=== PATIENT | female | born 1960 | race Caucasian/White ===

== ENCOUNTER 2020-08-04 11:46 | Outpatient (REF) | payer MEDICAID, SELFPAY ==
[2020-08-04 12:44] LABS: MANUAL DIFF FLAG NO
[2020-08-04 12:46] LABS: Basophils Percent Auto 0.4 % (0-2); Eosinophils Absolute Auto 0.1 X10*3/uL (0.0-0.4); Eosinophils Percent Auto 1.4 % (0-4); Hematocrit 40.8 % (37-47); Hemoglobin 13.3 g/dl (12.0-16.0); Imm Gran Abs Auto 0.02 X10*3/uL (0.00-0.03); Imm Gran Pct Auto 0.3 % (0.0-0.4); Lymphocytes Absolute Auto 1.9 X10*3/uL (1.2-4.9); Lymphocytes Percent Auto 25.9 % (20-40); Mean Corpuscular HGB Conc 32.6 g/dl (31.0-35.0); Mean Corpuscular Hemoglobin 30.4 pg (27.0-33.0); Mean Corpuscular Volume 93.4 fL (80-98); Mean Platelet Volume 10.6 fL (9.4-12.3); Monocytes Absolute Auto 0.6 X10*3/uL (0.1-1.2); Monocytes Percent Auto 8.8 % (2-11); Neutrophils Absolute Auto 4.6 X10*3/uL (2.0-8.3); Neutrophils Percent Auto 63.2 % (45-73); Platelet Count 238 X10*3/uL (160-400); Red Blood Count 4.37 X10*6/uL (4.20-5.50); Red Cell Distribution Width 12.5 % (11.0-16.0); White Blood Count 7.3 X10*3/uL (4.8-10.8)
[2020-08-04 13:45] LABS: Alanine Aminotransferase 20 U/L (0-31); Albumin Level 4.5 g/dL (3.5-5.0); Alkaline Phosphatase 99 U/L (39-117); Anion Gap 13 (12-20); Aspartate Amino Transferase 15 U/L (5-31); Bilirubin Total 0.2 mg/dL (0.0-1.0); Blood Urea Nitrogen 31 mg/dL (9-16); Calcium 9.4 mg/dL (8.4-10.2); Carbon Dioxide 29 mmol/L (22-29); Chloride 102 mmol/L (96-108); Estimated Glomerular Filt Rate 58; Glucose Random 102 mg/dL (60-115); Potassium 4.6 mmol/l (3.3-5.1); Sodium 139 mmol/L (135-145); Total Protein 6.7 g/dL (6.5-8.0)
[2020-08-04 14:22] LABS: Folate 3.3 ng/mL (> or = 4.0); Vitamin B12 213 pg/mL (200-900)
[2020-08-05 14:11] LABS: SARS COV2 IgG Negative (Negative)
== END 2020-08-04 11:47 | disposition home or self-care (01) ==
LOC: HO.MANLDS 11:46
PROVIDERS: PCP Internal Medicine; Visit Provider Internal Medicine
DX: G35 Multiple sclerosis (principal); Z20.828 Contact with and (suspected) exposure to other viral communicable diseases
CPT/HCPCS: 36415; 80053; 82306; 82607; 82746; 85025; 86769

== ENCOUNTER 2020-11-06 10:35 | Outpatient (REF) | payer MEDICAID, SELFPAY | END 2020-11-06 10:36 | disposition home or self-care (01) | LOC: HO.MANLNP 10:35 | PROVIDERS: PCP Internal Medicine; Visit Provider Physician Assistant | DX: R30.9 Painful micturition, unspecified (principal) | CPT/HCPCS: 87086 ==

== ENCOUNTER 2022-04-29 14:27 | Outpatient (REF) | payer MEDICARE, MEDICAID, SELFPAY ==
[2022-04-29 17:15] LABS: MANUAL DIFF FLAG NO
[2022-04-29 17:19] LABS: Basophils Percent Auto 0.5 % (0-2); Eosinophils Percent Auto 0.7 % (0-4); Hematocrit 41.9 % (37.0-47.0); Hemoglobin 13.7 g/dl (12.0-16.0); Imm Gran Abs Auto 0.01 X10*3/uL (0.00-0.03); Imm Gran Pct Auto 0.2 % (0.0-0.4); Lymphocytes Percent Auto 34.9 % (20-40); Mean Corpuscular HGB Conc 32.7 g/dl (31.0-35.0); Mean Corpuscular Hemoglobin 29.5 pg (27.0-33.0); Mean Corpuscular Volume 90.1 fL (80.0-98.0); Mean Platelet Volume 10.5 fL (9.4-12.3); Monocytes Absolute Auto 0.7 X10*3/uL (0.1-1.2); Monocytes Percent Auto 11.6 % (2-11); Neutrophils Percent Auto 52.1 % (45-73); Platelet Count 242 X10*3/uL (160-400); Red Blood Count 4.65 X10*6/uL (4.20-5.50); Red Cell Distribution Width 12.2 % (11.0-16.0); White Blood Count 5.7 X10*3/uL (4.8-10.8)
[2022-04-29 17:47] LABS: Alanine Aminotransferase 13 U/L (0-31); Albumin Level 4.7 g/dL (3.5-5.0); Alkaline Phosphatase 104 U/L (39-117); Anion Gap 13 (12-20); Aspartate Amino Transferase 13 U/L (5-31); Bilirubin Total 0.5 mg/dL (0.0-1.0); Blood Urea Nitrogen 15 mg/dL (9-16); Carbon Dioxide 30 mmol/L (22-29); Chloride 100 mmol/L (96-108); Estimated Glomerular Filt Rate > 60; Glucose Random 98 mg/dL (60-115); Sodium 139 mmol/L (135-145); Total Protein 7.1 g/dL (6.5-8.0)
== END 2022-04-29 14:28 | disposition home or self-care (01) ==
LOC: HO.MANLDS 14:27
PROVIDERS: Visit Provider Physician Assistant
DX: I95.2 Hypotension due to drugs (principal)
CPT/HCPCS: 36415; 80053; 85025

== ENCOUNTER 2022-05-13 18:22 | Outpatient (REF) | payer MEDICARE, SELFPAY ==
[2022-05-13 19:03] LABS: Appearance Urine Clear; Color Urine Yellow; Glucose Urine UA Negative (Negative); Leukocyte Esterase Urine Trace (Negative); Nitrite Urine Negative (Negative); PH 6.5 (5.0-8.0); Specific Gravity - Urine <= 1.005 (1.005-1.025); Urine Blood Negative (Negative); Urine Ketones Negative (Negative); Urine Protein Negative (Neg-Trace)
[2022-05-13 19:08] LABS: Bacteria Urine None Seen (None Seen); Hyaline Casts Urine 0-2 /LPF (0-2); RBC Urine 0-2 /HPF (0-2); Squamous Epithelial Cell Urine 0-2 /HPF (0-2); WBC Urine 0-5 /HPF (0-5)
== END 2022-05-13 18:23 | disposition home or self-care (01) ==
LOC: HO.LNP 18:22
PROVIDERS: Visit Provider Physician Assistant
DX: R30.9 Painful micturition, unspecified (principal)
CPT/HCPCS: 81001; 81003

== ENCOUNTER → 2022-06-10 12:53 | Outpatient (REF) | payer MEDICARE, MEDICAID, SELFPAY ==
--- NOTE | 2022-06-10 13:00 | CA_ITS ---
Transthoracic Echocardiogram Amended Patient (Last, First, Middle): Betty Phillips B Gender: Female Date of : 1960 Age: 61 Procedure Date: 06/10/2022 Procedure Type: Transthoracic Echocardiogram Location: OP Height: 157.48 cm Weight: 57.15 kg BSA: 1.57 m2 Heart Rate: 62 bpm BP: 132 / 68 mmHg Program Eligibility Specialist: ISA Referring MD: Brook JUAREZ Selector Packer: César Colunga MD Symptoms: PALPITATIONS Study Quality: Adequate ECG Rhythm: Sinus Conclusions: - 1. Normal LV systolic function with impaired relaxation abnormality 2. Normal cardiac valvular dopplers 3. No pericardial effusion Findings Left Ventricle Normal left ventricular size, thickness, and systolic function. The visually estimated ejection fraction is between 55-60%. Spectral Doppler is indicative of an impaired relaxation filling pattern. E/E prime ratio is between 8 and 15 consistent with indeterminate filling pressures. Right Ventricle Normal right ventricular cavity size and systolic function. Atria The left atrium is normal in size. Interatrial shunt cannot be excluded. The right atrium is normal in size. Aortic Valve Normal aortic valve structure and function. There is no aortic valve stenosis. There is no aortic valve regurgitation. Mitral Valve Normal mitral valve structure and function. There is no mitral valve regurgitation. There is no mitral valve stenosis. Pulmonic Valve The pulmonic valve was not well visualized. Tricuspid Valve Normal right atrial pressure. Great Vessels All visible segments of the aorta are normal in size. The pulmonary artery was not well visualized. Venous The inferior vena cava is normal in size and collapses greater than 50% with inspiration. Pericardium/Pleural There is no evidence of pericardial effusion. Prior Study Comparison No prior study available for comparison. Measurements 2D Linear Measurements IVSd: 0.62 0.6-0.9/0.6-1.0 cm LVIDd: 4.51 3.9-5.3/4.2-5.9 cm LVIDd Index: 2.87 2.4-3.2/2.2-3.1 cm/m2 LVIDs: 4.32 2.0-3.6 cm LVPWd: 0.54 0.7-1.1 cm LA Diam: 3.10 2.7-3.8/3.0-4.0 cm LAIDs Index: 1.97 1.5-2.3 cm/m2 LV Mass: 94.17 67-162/88-224 g LV Mass Index: 59.98 43-95/49-115 g/m2 LVOT Diam: 1.70 3.0+(-)1.3 cm 2D Volumes LA Vol: 10.70 2D Systolic Function EF 4C: 59.20 >55% EF 2C: 58.20 >55% EF BiP: 59.00 >55% Mitral Valve MV Pk E: 0.68 MV PK A: 0.66 MV Decel Time: 162.00 E/A: 1.00 E'Lateral: 5.98 E'Medial: 5.44 E/E' Med: 12.40 E/E' Lat: 11.30 PHT: 47.00 MVA PHT: 4.68 Decel [place]: 4.19 Aortic Valve AoV Pk Mars: 1.16 AoV Mn Mars: 0.80 AoV VTI: 0.25 AoV Pk Grad: 5.00 Aov Mn Grad: 3.00 MARYANN Cont.VTI: 1.63 LVOT LVOT Pk Mars: 0.84 LVOT Mn Mars: 0.56 LVOT VTI: 0.18 LVOT Pk Grad: 3.00 LVOT Mn Grad: 1.00 LVOT Diam: 1.70 LVOT Area: 2.27 Diastolic Function MV Pk E: 0.68 MV Pk A: 0.66 E/A: 1.00 E'Medial: 5.44 E/E' Med: 12.40 E' Laterial: 5.98 E/E' Lat: 11.30 Right Ventricle TAPSE (mm): 18.30 TVS' Mars: 9.46 Tricuspid Valve RA Press: 3.00 Great Vessels Aorta Sinus of Valsalva: 2.60 2.0-3.5 cm Ao Asc: 2.80 2.1-3.4 cm Pulmonary Veins Pulm Vein S/D 1.40 Pulmonary Valve PV Pk Mars: 0.60 Peak PV Grad: 1.00 Updated in Other Vendor System with Status of Final César Colunga MD electronically signed on 06/12/2022 1:55:27 PM with status of Final
== END ==
LOC: HO.CARD 12:53
PROVIDERS: PCP Internal Medicine; Visit Provider Physician Assistant
DX: R00.2 Palpitations (principal)
CPT/HCPCS: 93306

== ENCOUNTER 2022-08-09 12:18 | Outpatient (REF) | payer MEDICARE, MEDICAID, SELFPAY ==
[2022-08-09 14:30] LABS: Calcium 9.8 mg/dL (8.4-10.2)
[2022-08-09 14:56] LABS: Free T4 (Free Thyroxine) 0.91 ng/dL (0.71-1.85); Thyroid Stimulating Hormone 1.24 uIU/mL (0.32-4.0)
[2022-08-10 12:51] LABS: Calcium (PTHI) 9.8 mg/dL (8.6-10.4); PTHI 97 pg/mL (16-77)
== END 2022-08-09 12:19 | disposition home or self-care (01) ==
LOC: HO.MANLDS 12:18
PROVIDERS: Visit Provider Physician Assistant
DX: M81.0 Age-related osteoporosis without current pathological fracture (principal); G35 Multiple sclerosis
CPT/HCPCS: 36415; 82310; 83970; 84439; 84443

== ENCOUNTER 2025-08-15 14:47 | Outpatient (REF) | payer MEDICARE, MEDICAID, SELFPAY ==
--- OUTSIDE RECORDS SUMMARY | 2025-08-15 15:00 | XMS_ITS | Encounter Summary ---
Author Organization [facility] Address [address] [place] [address] Phone Care Team Providers Care Livestock Inspector Name Role Phone Stephan Day DO Unavailable Stephan Day DO Primary Care Provider [phone] Encounter Details Date Type Department Care Team ([facility] st Contact Info) Description 02/11/2022 Transcribe Orders [facility] [place] [address] [place] [address] Stephan Day DO [address] [facility] [place], [place] [id number] [email or web address] Encounter for general adult medical examination with abnormal findings (Primary Dx) Social History Tobacco Use Types Packs/Day Years Used Date Smoking Tobacco: Former Cigarettes 0.5 25 1 984 - 2009 Smokeless Tobacco: Never Comments:relapsed for 2 week s in 2018 Alcohol Use Standard Drinks/Week Comments No 0 (1 standard drink = 0.6 oz pur e alcohol) Comments No Sex and Gender Information Value Date Recorded Sex Assigned at Female 11/01/2019 7:04 PM EST Legal Sex Female 5:58 PM EST Gender Identity Female 11/01/2019 7:04 PM EST Sexual Orientation Choose not to disclose 2019 7:04 PM EST documented as of this encounter Plan of Treatment Not on file documented as of this encounter Results * TSH (02/11/2022 12:08 PM EDT) TSH 1.05 0.27 - 4.20 uIU/mL [facility] Blood 02/11/2022 12:0 8 PM EDT 02/11/2022 12:11 PM EDT us Stephan A Bigda DO LAB BLOOD BKR ORDERABLES Final R esult Performing Organization Address City/[facility]/ZIP Co de Phone Number [address] [address] * 25-OH vitamin D (02/11/2022 12:08 PM EDT) Pathologist [facility] 25 [place] VIT D (TOTAL) 41 30 - 60 ng/mL [facility] Blood 02/11/2022 12:0 8 PM EDT 02/11/2022 12:11 PM EDT us Stephan A [facility] LAB BLOOD BKR ORDERABLES Final R esult Performing Organization Address City/[facility]/ZIP Co de Phone Number [address] [address] * CBC and differential (02/11/2022 12:08 PM EDT) Pathologist [facility] WBC 5.14 4.00 - 11.00 K/uL [facility] RBC 4.67 3.72 - 5.30 M/uL [facility] HGB 14.0 11.4 - 15.9 g/dL [facility] HCT 43.0 34.2 - 46.8 % [facility] PLT 258 140 - 430 K/uL [facility] MCV 92.1 78.0 - 97.0 fL [facility] MCH 30.0 25.0 - 33.0 pg [facility] MCHC 32.6 32.0 - 36.0 g/dL [facility] RDW 12.3 11.0 - 16.0 % [facility] MPV 10.5 8.4 - 12.8 fl [facility] NRBC 0.00 0 /100 WBCs [facility] ABSOLUTE NRBC 0.00 0 K/uL [facility] DIFF METHOD Auto [facility] NEUTS 48.0 43.0 - 75.0 % [facility] LYMPHS 40.3 18.2 - 47.4 % [facility] MONOS 9.1 4.00 - 11.00 % [facility] EOS 1.6 0.0 - 8.0 % [facility] BASOS 0.6 0.0 - 2.0 % [facility] Granulocytes, immature (%) 0.4 0.0 - 0.9 % [facility] ABSOLUTE NEUTS 2.47 1.80 - 7.70 K/uL [facility] ABSOLUTE LYMPHS 2.07 1.00 - 3.10 K/uL [facility] ABSOLUTE MONOS 0.47 0.20 - 0.80 K/uL [facility] ABSOLUTE EOS 0.08 0.00 - 0.80 K/uL [facility] ABSOLUTE BASOS 0.03 0.00 - 0.09 K/uL [facility] Granulocytes, immature 0.02 0.00 - 0.05 K/uL [facility] Blood 02/11/2022 12:0 8 PM EDT 02/11/2022 12:11 PM EDT us Stephan A Bigda DO LAB BLOOD BKR ORDERABLES Final R esult [address] [address] * (ABNORMAL) Comprehensive metabolic panel (02/11/2022 12:08 PM EDT) SODIUM 140 133 - 146 mmol/L [facility] POTASSIUM 4.1 3.3 - 5.1 mmol/L [facility] CHLORIDE 102 96 - 108 mmol/L [facility] CO2 27 21 - 35 mmol/L [facility] BUN 12 6 - 19 mg/dL [facility] CREATININE 0.50 0.5 - 1.5 mg/dL [facility] GLUCOSE 94 70 - 99 mg/dL [facility] ALBUMIN 4.7 3.9 - 4.8 g/dL [facility] TOTAL PROTEIN 7.1 6.5 - 8.0 g/dL [facility] CALCIUM 9.8 8.4 - 10.3 mg/dL [facility] ALKALINE PHOSPHATASE 127(H) 39 - 117 U/L [facility] TOTAL BILIRUBIN 0.3 0.0 - 1.2 mg/dL [facility] AST 28 0 - 37 U/L [facility] ALT 18 0 - 40 U/L [facility] GLOBULIN 2.4 1 - 4.8 g/dL [facility] EGFR 105 >59 mL/min/1.7 3m2 [facility] Comment:Estimated glomerular filtration rate calculated using the CKD-EPI refit equation. ANION GAP 15 10 - 20 mmol/L [facility] Blood 02/11/2022 12:0 8 PM EDT 02/11/2022 12:11 PM EDT us Stephan Day DO LAB BLOOD BKR ORDERABLES Final R esult Performing Organization Address City/State/[facility] Co de Phone Number [address] [address] documented in this encounter Visit Diagnoses Diagnosis Encounter for general adult medical examination with abnormal findings- Primary documented in this encounter Care Teams Livestock Inspector Relationship Specialty Start Date End Date Stephan Day DO [address] [place] [address] [email or web address] PCP - General Internal Medicine 03/22/21 Stephan Day DO [address] [place] [address] [email or web address] Insurance Assigned Provider 01/01/20 03/05/22 documented as of this encounter Additional Source Comments The information contained in this document represents components of the legal health record. It is not the complete legal health record.[facility]
--- OUTSIDE RECORDS SUMMARY | 2025-08-15 15:00 | XMS_ITS | Encounter Summary ---
Author Organization [facility] Address [address] [place] [address] Phone Care Team Providers Care Main Line Station Engineer Name Role Phone Stephan Day DO Unavailable Stephan Day DO Primary Care Provider [phone] Encounter Details Date Type Department Care Team (Late st Contact Info) Description 06/25/2021 Procedure Pass [facility], [address] [address] Social History Tobacco Use Types Packs/Day Years [...] on file documented as of this encounter Visit Diagnoses Not on filedocumented in this encounter Care Teams Main Line Station Engineer Relationship Specialty Start Date End Date Stephan Day DO [address] [facility] [place] [address] PCP - General Internal Medicine 03/22/21 Stephan Day DO [address] [place] [address] [email or web address] Insurance Assigned Provider 01/01/20 03/05/22 documented as of this encounter Additional Source Comments The information contained in this document represents components of the legal health record. It is not the complete legal health record.[facility]
--- OUTSIDE RECORDS SUMMARY | 2025-08-15 15:00 | XMS_ITS | Encounter Summary ---
Author Organization [facility] Address [address] [place] [address] Phone Care Team Providers Care Tie Up Worker Name Role Phone Stephan Day DO Primary Care Provider [phone] Encounter Details Date Type Department Care Team (Late st Contact Info) Description 04/29/2022 Procedure Pass [facility], [facility] [address] [place] [address] Social History Tobacco Use Types Packs/Day Years Used Date Smoking Tobacco: Former Cigarettes 0.5 25 1 984 - 2008 Smokeless Tobacco: Never Comments:relapsed for 2 week [...] on filedocumented in this encounter Care Teams Tie Up Worker Relationship Specialty Start Date End Date Stephan Day DO PCP - General Internal Medicine 03/22/21 documented as of this encounter Additional Source Comments The information contained in this document represents components of the legal health record. It is not the complete legal health record.[facility]
--- OUTSIDE RECORDS SUMMARY | 2025-08-15 15:00 | XMS_ITS | Encounter Summary ---
Author Organization [facility] Address [address] [place] [address] Phone Care Team Providers Care Plaster Maker Name Role Phone Stephan Day DO Unavailable Stephan Day DO Primary Care Provider [phone] Encounter Details Date Type Department Care Team (Late st Contact Info) Description 04/15/2021 Procedure Pass [facility], [address] [address] Social History Tobacco Use Types Packs/Day Years [...] on filedocumented in this encounter Care Teams Plaster Maker Relationship Specialty Start Date End Date Stephan Day DO [address] [facility] [place] [address] PCP - General Internal Medicine 03/22/21 Stephan Day DO [address] [place] [address] [email or web address] Insurance Assigned Provider 01/01/20 03/05/22 documented as of this encounter Additional Source Comments The information contained in this document represents components of the legal health record. It is not the complete legal health record.[facility]
--- OUTSIDE RECORDS SUMMARY | 2025-08-15 15:00 | XMS_ITS | Encounter Summary ---
Author Organization [facility] Address [address] [place] [address] Phone Care Team Providers Care Stave Block Roller Name Role Phone Stephan Day DO Unavailable Stephan Day DO Primary Care Provider Encounter Details Date Type Department Care Team (Late st Contact Info) Description 06/25/2021 Procedure Pass [facility], [address] [address] Social History Tobacco Use Types Packs/Day Years [...] on filedocumented in this encounter Care Teams Stave Block Roller Relationship Specialty Start Date End Date Stephan Day DO [address] [facility] [place] [address] PCP - General Internal Medicine 03/22/21 Stephan Day DO [address] [place] [address] [email or web address] Insurance Assigned Provider 01/01/20 03/05/22 documented as of this encounter Additional Source Comments The information contained in this document represents components of the legal health record. It is not the complete legal health record.[facility]
--- OUTSIDE RECORDS SUMMARY | 2025-08-15 15:00 | XMS_ITS | Encounter Summary ---
Author Organization [facility] Address [address] [place] [address] [address] [place] [address] Phone Care Team Providers Care Industrial Servicer Name Role Phone Stephan Day DO Primary Care Provider [phone] Encounter Details Date Type Department Care Team (Latest Contact Info) Description 04/29/2022 Transcribe Orders Virtual Department [address] [place] [address] Brook Landers PA [address] [facility] [place] [address] Palpitations (Primary Dx) Social History Tobacco Use Types [...] documented as of this encounter Visit Diagnoses Diagnosis Palpitations- Primary documented in this encounter Care Teams Industrial Servicer Relationship Specialty Start Date End Date Stephan Day DO [email or web address] PCP - General Internal Medicine 03/22/21 documented as of this encounter Additional Source Comments The information contained in this document represents components of the legal health record. It is not the complete legal health record.[facility]
--- OUTSIDE RECORDS SUMMARY | 2025-08-15 15:01 | XMS_ITS | Encounter Summary ---
Author Organization [facility] Address [address] [place] [address] Care Team Providers Care Network Mgr Name Role Phone Barb Stephan Primary Care Provider [phone] Encounter Details Date Type Department Care Team (Late st Contact Info) Description 05/10/2017 Orders Only [facility] ACC Building [address] [place], [place] [phone] Leslye Gonzales MD [address] [place], [place] [phone] Social History Tobacco Use Types Packs/Day Years Used Date Smoking Tobacco: Never Assessed Comments Unknown Sex and Gender Information Value Date Recorded Sex Assigned at Female 12/05/2021 12:26 PM EDT Legal Sex Female 12:40 PM EDT Gender Identity Choose not to disclose 12:26 PM EDT Sexual Orientation Straight 12/05/2021 12 :26 PM EDT documented as of this encounter Plan of Treatment Upcoming Encounters Date Type Department Care Team (Late st Contact Info) Description 11/05/2025 3:00 PM EST Office Visit [facility] [address] [place] [address] Sieve Grader Tender: Gail Cuevas documented as of this encounter Visit Diagnoses Not on filedocumented in this encounter Care Teams Network Mgr Relationship Specialty Start Date End Date Stephan Day [address] [place] [phone] PCP - General 04/13/17 documented as of this encounter
--- OUTSIDE RECORDS SUMMARY | 2025-08-15 15:01 | XMS_ITS | Encounter Summary ---
Author Organization [facility] Address [address] [place] [phone] Phone Care Team Providers Care Charge Out Clerk Name Role Phone Stephan Day DO Primary Care Provider Encounter Details Date Type Department Care Team (Late st Contact Info) Description 11/11/2022 Procedure Pass [facility], [address] [address] Social History Tobacco Use Types Packs/Day Years [...] on filedocumented in this encounter Care Teams Charge Out Clerk Relationship Specialty Start Date End Date Stephan Day DO PCP - General Internal Medicine 03/22/21 documented as of this encounter Additional Source Comments The information contained in this document represents components of the legal health record. It is not the complete legal health record.[facility]
--- OUTSIDE RECORDS SUMMARY | 2025-08-15 15:01 | XMS_ITS | Encounter Summary ---
Author Organization [facility] Address [address] [place] [address] Care Team Providers Care Human Projectile Name Role Phone BarbStephan Primary Care Provider [phone] Encounter Details Date Type Department Care Team (Late st Contact Info) Description 12/28/2016 Orders Only [facility] ACC Building [address] [place] [address] Leslye Gonzales MD [address] [place], [place] [phone] Social History Tobacco Use Types Packs/Day Years [...] Description 11/05/2025 3:00 PM EST Office Visit [facility] [address] [place] [address] Kiln Packer: Gail Cuevas documented as of this encounter Visit Diagnoses Not on filedocumented in this encounter Care Teams Human Projectile Relationship Specialty Start Date End Date Stephan Day [address] [place] [address] PCP - General 04/13/17 documented as of this encounter
--- OUTSIDE RECORDS SUMMARY | 2025-08-15 15:01 | XMS_ITS | Encounter Summary ---
Author Organization [facility] Address [address] [place] [address] Phone Care Team Providers Care Research Specialist Name Role Phone Stephan Day DO Unavailable Bigcarli Stephan Robledo DO Primary Care Provider [phone] Reason for Referral * MRI/CAT Scan - Closed Specialty Diagnoses / Procedures Referred By Stacey urrutia Referred To Contact Radiology Diagnoses Multiple sclerosis Procedures MRI Brain Keesha Dinh NP mailto:[email or web address] Referral ID Status Reason Start Date Expiration Date Visits Re quested Visits Authorized [id number] Closed 06/07/2021 06/07/2022 1 1 * MRI/CAT Scan - Closed Specialty Diagnoses / Procedures Referred By Stacey urrutia Referred To Contact Radiology Diagnoses Multiple sclerosis Procedures MRI Cervical Spine Keesha Dinh NP mailto:[email or web address] Referral ID Status Reason Start Date Expiration Date Visits Re quested Visits Authorized [id number] Closed 06/25/2021 06/07/2022 1 1 Encounter Details Date Type Department Care Team (Latest Contact Info) Description 06/25/2021 Transcribe Orders Virtual Department [address] [place] [address] Jovanny Menchaca, [email or web address] Multiple sclerosis (Primary Dx) Social History Tobacco Use Types [...] documented as of this encounter Results * MRI BRAIN WITH AND WITHOUT CONTRAST (07/19/2021 1:43 PM EDT) Anatomical Region Laterality Modality Head Magnetic Resonan ce 07/19/2021 3:46 PM EDT Impressions 07/19/2021 3:55 PM EDT Stable extensive chronic white matter pathology in a pattern again consistent with multiple sclerosis. No new white matter or other pathology is apparent. POS [id number] Narrative 07/19/2021 3:55 PM EDT TECHNIQUE: 1.5 Yari scanner. Imaging without and with IV contrast. Multiple comparisons, most recently 11/29/2019. FINDINGS: Allowing for differences in technique and positioning, there has been no identifiable change in the extensive globular and confluent areas of T2/FLAIR hyperintensity in the periventricular and subcortical white matter and scattered through the corpus callosum. No new white matter pathology is identified. None of the white matter lesions enhances post contrast. Many are hypointense on T1. No signal changes suspicious for ischemia, infarct, hemorrhage, mass or an inflammatory process. Mild generalized atrophy and commensurate ventricular fullness are unchanged. Basilar cisterns widely patent. No signs of elevated intracranial pressure. No pituitary, pineal region, IAC or intraorbital pathology. Normal flow-voids are present in the major vessels of the [place] and the dural venous sinuses. Procedure Note Trever Arriaga MD - 07/19/2021 TECHNIQUE: 1.5 Yari scanner. Imaging without and with IV contrast.Multiple comparisons, most recently 11/29/2019. FINDINGS: Allowing for differences in technique and positioning, there has been noidentifiable change in the extensive globular and confluent areas ofT2/FLAIR hyperintensity in the periventricular and subcortical whitematter and scattered through the corpus callosum. No new white matter pathology is identified. None of the white matter lesions enhances post contrast. Many are hypointense on T1. No signal changes suspicious for ischemia, infarct, hemorrhage, mass or aninflammatory process. Mild generalized atrophy and commensurate ventricular fullness areunchanged. Basilar cisterns widely patent. No signs of elevatedintracranial pressure. No pituitary, pineal region, IAC or intraorbital pathology. Normal flow-voids are present in the major vessels of the [place] the dural venous sinuses. IMPRESSION: Stable extensive chronic white matter pathology in a pattern againconsistent with multiple sclerosis. No new white matter or other pathologyis apparent. POS [id number] Keesha Narayanlexx Menchaca TRACK SUBWAY REPAIR SUPERVISOR IMG MR HEAD/NEC K Final Result * MRI CERVICAL SPINE (BONE) WITH AND WITHOUT CONTRAST (07/19/2021 1:42 PM EDT) Anatomical Region Laterality Modality C-spine Magnetic Resonan ce 07/19/2021 6:06 PM EDT Impressions 07/19/2021 6:35 PM EDT 1. Small focal T2 hyperintense lesion within the central spinal cord at midline at the level of C5-C6 is slightly less conspicuous. Other small focal T2 hyperintense lesions within the cervical spinal cord appears stable. No evidence of enhancing spinal cord lesions to indicate active demyelination. 2. Similar moderate central disc protrusion at C5-C6. 3. No other significant changes. Narrative 07/19/2021 6:35 PM EDT HISTORY:. Spasms, left thigh pain and loss of peripheral vision, follow-up previous abnormal exam. COMPARISON: MRI cervical spine 11/29/2019. TECHNIQUE: Pre and post gadolinium-enhanced exam performed on a 1.5 Yari high- field MRI scanner. FINDINGS: Cervicomedullary junction: No significant abnormalities. Spinal cord: The T2 hyperintense central lesion within the spinal cord at C5-C6 at midline is less conspicuous. Small T2 hyperintense lesion within the left side of the spinal cord at the level of C2-C3 appears stable small T2 hyperintense lesion at the level of C7-T1 on the right appears stable. No evidence of enhancing spinal cord lesions. No other significant changes. C2-C3: No significant changes. No focal disc abnormality or spinal stenosis. C3-C4: No significant changes. No focal disc abnormality or spinal stenosis. C4-C5: Stable small central disc bulge. No evidence of spinal stenosis. C5-C6: More moderate size central disc protrusion does not appear significantly changed. This again approaches the anterior margin of the spinal cord. Minimal effacement of the spinal cord without central canal stenosis. Mild neuroforaminal narrowing on the left. C6-C7: Minimal broad-based bulging of the disc. No evidence of spinal stenosis. C7-T1: No significant abnormalities. Vertebrae: Minimal retrolisthesis of C5 on C6 is stable. No new subluxations. No suspicious marrow signal abnormalities. Soft tissue: No evidence of paravertebral masses. Procedure Note Rahul Jama MD - 07/19/2021 HISTORY:. Spasms, left thigh pain and loss of peripheral vision, follow- upprevious abnormal exam. COMPARISON: MRI cervical spine 11/29/2019. TECHNIQUE: Pre and post gadolinium-enhanced exam performed on a 1.5 [place]igh- field MRI scanner. FINDINGS: Cervicomedullary junction: No significant abnormalities. Spinal cord: The T2 hyperintense central lesion within the spinal cord atC5-C6 at midline is less conspicuous. Small T2 hyperintense lesion withinthe left side of the spinal cord at the level of C2-C3 appears stablesmall T2 hyperintense lesion at the level of C7-T1 on the right appearsstable. No evidence of enhancing spinal cord lesions. No other significantchanges. C2-C3: No significant changes. No focal disc abnormality or spinalstenosis. C3-C4: No significant changes. No focal disc abnormality or spinalstenosis. C4-C5: Stable small central disc bulge. No evidence of spinal stenosis. C5-C6: More moderate size central disc protrusion does not appearsignificantly changed. This again approaches the anterior margin of thespinal cord. Minimal effacement of the spinal cord without central canalstenosis. Mild neuroforaminal narrowing on the left. C6-C7: Minimal broad-based bulging of the disc. No evidence of spinalstenosis. C7-T1: No significant abnormalities. Vertebrae: Minimal retrolisthesis of C5 on C6 is stable. No newsubluxations. No suspicious marrow signal abnormalities. Soft tissue: No evidence of paravertebral masses. IMPRESSION: 1. Small focal T2 hyperintense lesion within the central spinal cord atmidline at the level of C5-C6 is slightly less conspicuous. Other smallfocal T2 hyperintense lesions within the cervical spinal cord appearsstable. No evidence of enhancing spinal cord lesions to indicate activedemyelination. 2. Similar moderate central disc protrusion at C5-C6. 3. No other significant changes. Keesha Menchaca TRACK SUBWAY REPAIR SUPERVISOR IMG MR XSPECIAL TY Final Result documented in this encounter Visit Diagnoses Diagnosis Multiple sclerosis- Primary Multiple sclerosis Multiple sclerosis documented in this encounter Care Teams Research Specialist Relationship Specialty Start Date End Date Stephan Day DO [address] [place] [address] [email or web address] PCP - General Internal Medicine 03/22/21 Stephan Day DO [address] [place] [address] Insurance Assigned Provider 01/01/20 03/05/22 documented as of this encounter Additional Source Comments The information contained in this document represents components of the legal health record. It is not the complete legal health record.[facility]
--- OUTSIDE RECORDS SUMMARY | 2025-08-15 15:01 | XMS_ITS | Encounter Summary ---
Author Organization [facility] Address [address] [place] [address] Care Team Providers Care Ancillary Specialist Name Role Phone Barb Stephan Primary Care Provider [phone] Encounter Details Date Type Department Care Team (Late st Contact Info) Description 03/14/2017 Orders Only [facility] Building [address] [place], [place] [phone] Leslye Gonzales MD [address] [place], [place] [phone] Social History Tobacco Use Types Packs/Day Years [...] Description 11/05/2025 3:00 PM EST Office Visit [facility] [address] [place] [address] Axminster Rug Setter: Gail Cuevas documented as of this encounter Visit Diagnoses Not on filedocumented in this encounter Care Teams Ancillary Specialist Relationship Specialty Start Date End Date Stephan Day [address] [place] [phone] PCP - General 04/13/17 documented as of this encounter
--- OUTSIDE RECORDS SUMMARY | 2025-08-15 15:01 | XMS_ITS | Encounter Summary ---
Author Organization [facility] Address [address] [place] [address] [address] [place] [address] Phone Care Team Providers Care Helpdesk Manager Name Role Phone MarleyStephan boyce Primary Care Provider [phone] Barb, Stephan Robledo DO Unavailable Barb, Stephan Meena DO Primary Care Provider [phone] Encounter Details Date Type Department Care Team (Late st Contact Info) Description 09/17/2020 Transcribe Orders Virtual Department [address] [place] [address] Stephan Day, [address] [facility] [place] [address] [place] [address] [email or web address] Pain in both knees, unspecified chronicity (Primary Dx) Social History Tobacco Use Types Packs/Day Years Used Date Smoking Tobacco: Former Smokeless Tobacco: Never Comments:1-2 months ago; res tarted after she had quit for 8 yrs Alcohol Use Standard Drinks/Week Comments No 0 [...] documented as of this encounter Results * XR KNEE 4 OR MORE VIEWS (BILATERAL) (10/08/2020 11:04 AM EST) Anatomical Region Laterality Modality Knee Bilateral, Knee Right, Knee Left Computed Radiography 10/08/2020 12:2 8 PM EST Impressions 10/08/2020 12:31 PM EST No evidence of arthritis. No findings to account for the patient's symptoms. Narrative 10/08/2020 12:31 PM EST COMPARISON: Right femur x-rays 07/28/2017. BILATERAL KNEE RADIOGRAPH FINDINGS: 5 images obtained including weightbearing. No acute fracture or malalignment. Joint spaces are preserved. No destructive or suspicious bone lesions. No joint effusion or soft tissue swelling. Procedure Note Marck Calderon MD - 10/08/2020 COMPARISON: Right femur x-rays 07/28/2017. BILATERAL KNEE RADIOGRAPH FINDINGS: 5 images obtained including weightbearing. No acute fracture or malalignment. Joint spaces are preserved. Nodestructive or suspicious bone lesions. No joint effusion or soft tissueswelling. IMPRESSION: No evidence of arthritis. No findings to account for the patient'ssymptoms. Stephan Day DO IMG XR LOWER EXTREMITY Final Res ult documented in this encounter Visit Diagnoses Diagnosis Pain in both knees, unspecified chronicity- Primary Pain in both knees, unspecified chronicity documented in this encounter Care Teams Helpdesk Manager Relationship Specialty Start Date End Date Stephan Day DO PCP - General Internal Medicine 10/24/17 03/21/21 Stephan Day DO PCP - General Internal Medicine 03/22/21 Stephan Day DO [address] [place] [address] [email or web address] Insurance Assigned Provider 01/01/20 03/05/22 documented as of this encounter Additional Source Comments The information contained in this document represents components of the legal health record. It is not the complete legal health record.[facility]
--- OUTSIDE RECORDS SUMMARY | 2025-08-15 15:01 | XMS_ITS | Encounter Summary ---
Author Organization [facility] Address [address] [place] [address] Phone Care Team Providers Care Wire Coiner Name Role Phone Stephan Day DO Primary Care Provider [phone] Encounter Details Date Type Department Care Team (Late st Contact Info) Description 06/29/2022 Procedure Pass [facility] Endoscopy Admitting Dept Virtual Department [address] [place] [address] Social History Tobacco Use Types Packs/Day Years [...] on filedocumented in this encounter Care Teams Wire Coiner Relationship Specialty Start Date End Date Stephan Day DO PCP - General Internal Medicine 03/22/21 documented as of this encounter Additional Source Comments The information contained in this document represents components of the legal health record. It is not the complete legal health record.[facility]
--- OUTSIDE RECORDS SUMMARY | 2025-08-15 15:01 | XMS_ITS | Encounter Summary ---
Author Organization [facility] Address [address] [place] [address] Phone Care Team Providers Care Welding Tester Name Role Phone Stephan Day Primary Care Provider [phone] Encounter Details Date Type Department Care Team (Late st Contact Info) Description 10/31/2022 Ancillary Orders [facility], X-Ray - [facility] [address] [place] [address] Lorri Goel, INTEGRATION SOLUTION ARCHITECT [address] [place] [phone] [email or web address] Lumbar spondylosis Social History Tobacco Use Types Packs/Day Years [...] as of this encounter Results * XR LUMBOSACRAL SPINE 4 OR MORE VIEWS (10/31/2022 3:00 PM EST) Anatomical Region Laterality Modality L-spine Computed Radiogr aphy 10/31/2022 11:0 7 PM EST Impressions 10/31/2022 11:12 PM EST Mild facet predominant lumbar spine degenerative change. Narrative 10/31/2022 11:12 PM EST XR LUMBOSACRAL SPINE 4 OR MORE VIEWS COMPARISON: Lumbar spine 4 or more views FINDINGS: ALIGNMENT: No spondylolisthesis. VERTEBRAE: Bones demineralized. Vertebral body heights preserved. DISCS: Disc height loss with endplate sclerosis and marginal osteophytes at L3-4 and L5-S1. FACETS: Facet arthropathy L3-S1. PARASPINAL SOFT TISSUES: Cholecystectomy clips in the right upper quadrant. Constipation. Degenerative changes of the left greater than right sacroiliac joints. Mild aortic basilar calcification. Procedure Note Liz Queen MD - 10/31/2022 XR LUMBOSACRAL SPINE 4 OR MORE VIEWS COMPARISON: Lumbar spine 4 or more views FINDINGS: ALIGNMENT: No spondylolisthesis. VERTEBRAE: Bones demineralized. Vertebral body heights preserved. DISCS: Disc height loss with endplate sclerosis and marginal osteophytesat L3-4 and L5-S1. FACETS: Facet arthropathy L3-S1. PARASPINAL SOFT TISSUES: Cholecystectomy clips in the right upperquadrant. Constipation. Degenerative changes of the left greater thanright sacroiliac joints. Mild aortic basilar calcification. IMPRESSION: Mild facet predominant lumbar spine degenerative change. Lorri Goel INTEGRATION SOLUTION ARCHITECT IMG XR SPINE Final Result documented in this encounter Visit Diagnoses Diagnosis Lumbar spondylosis Lumbosacral spondylosis without myelopathy Lumbar spondylosis Lumbosacral spondylosis without myelopathy documented in this encounter Care Teams Welding Tester Relationship Specialty Start Date End Date Stephan Day DO PCP - General Internal Medicine 03/22/21 documented as of this encounter Additional Source Comments The information contained in this document represents components of the legal health record. It is not the complete legal health record.[facility]
--- OUTSIDE RECORDS SUMMARY | 2025-08-15 15:01 | XMS_ITS | Encounter Summary ---
Author Organization [facility] Address [address] [place] [address] Phone Care Team Providers Care Steersman Name Role Phone Bigda, Stephan A DO Primary Care Provider [phone] Bigda, Stephan A DO Unavailable Bigda, Stephan A DO Unavailable Bigda, Stephan A DO Primary Care Provider [phone] Encounter Details Date Type Department Care Team (Latest Contact Info) Description 05/07/2019 Transcribe Orders [facility] Main [address] [place] [address] Leslye Gonzales MD [address] [place] [phone] Syncope and collapse (Primary Dx); Multiple sclerosis Social History Tobacco Use Types Packs/Day Years Used Date Smoking Tobacco: Former Smokeless Tobacco: Never Comments:1-2 months ago; res tarted after she had quit for 8 yrs Alcohol Use Standard Drinks/Week Comments No 0 (1 standard drink = 0.6 oz pur e alcohol) Comments Unknown Sex and Gender Information Value Date Recorded Sex Assigned at Female 11/01/2019 7:04 PM EST Legal Sex Female 5:58 PM EST Gender Identity Female 11/01/2019 7:04 PM EST Sexual Orientation Choose not to disclose 2019 7:04 PM EST documented as of this encounter Plan of Treatment Not on file documented as of this encounter Procedures Procedure Name Priority Date/Time Associated Diagnosis Comments LFTS (HEPATIC PANEL) Routine 05/07/2019 8:58 AM EDT Syncope and collapse Multiple sclerosis HC BLOOD COUNT COMPLETE AUTO&AUTO DIFRNTL WBC Routine 05/07/2019 8:58 AM EDT Syncope and collapse Multiple sclerosis THYROID STIMULATING HORMONE (TSH) Routine 05/07/2019 8:58 AM EDT Syncope and collapse Multiple sclerosis documented in this encounter Results * TSH (05/07/2019 8:58 AM EDT) TSH 0.63 0.27 - 4.20 uIU/mL [facility] Blood 05/07/2019 8:58 AM EDT 05/07/2019 9:00 AM EDT Leslye Gonzales MD LAB BLOOD BKR ORDERABLES [facility] Result [address] [address] * (ABNORMAL) CBC and differential (05/07/2019 8:58 AM EDT) WBC 4.75 3.40 - 11.20 K/uL [facility] RBC 4.38 3.80 - 4.80 M/uL [facility] HGB 13.1 12.0 - 15.0 g/dL [facility] HCT 40.2 36.0 - 46.0 % [facility] PLT 198 130 - 400 K/uL [facility] MCV 91.8 79.0 - 98.0 fL [facility] MCH 29.9 27.0 - 34.8 pg [facility] MCHC 32.6 31.5 - 36.0 g/dL [facility] RDW 12.7 10.8 - 14.6 % [facility] MPV 10.2 9.4 - 12.4 fl [facility] NRBC 0.00 0.00 /100 WBCs [facility] ABSOLUTE NRBC 0.00 0.00 K/uL [facility] DIFF METHOD Auto [facility] NEUTS 50.0 45.30 - 77.70 % [facility] LYMPHS 34.1 12.30 - 39.70 % [facility] MONOS 12.6 4.10 - 12.80 % [facility] EOS 2.5 0 - 7.2 % [facility] BASOS 0.6 0 - 2.80 % [facility] Granulocytes, immature (%) 0.2 0.0 - 0.9 % [facility] ABSOLUTE NEUTS 2.37 1.40 - 7.70 K/uL [facility] ABSOLUTE LYMPHS 1.62 0.60 - 3.20 K/uL [facility] ABSOLUTE MONOS 0.60(H) 0.11 - 0.59 K/uL [facility] ABSOLUTE EOS 0.12 0.01 - 0.50 K/uL [facility] ABSOLUTE BASOS 0.03 0.00 - 0.08 K/uL [facility] Granulocytes, immature 0.01 0.00 - 0.05 K/uL [facility] Blood 05/07/2019 8:58 AM EDT 05/07/2019 9:00 AM EDT us Leslye Gonzales MD LAB BLOOD BKR ORDERABLES [facility] Result Performing Organization Address City/State/[facility] Co de Phone Number [facility] [address] [place] [address] * LFTs (hepatic panel) (05/07/2019 8:58 AM EDT) ALKALINE PHOSPHATASE 92 39 - 117 U/L [facility] TOTAL BILIRUBIN 0.2 0.0 - 1.2 mg/dL [facility] DIRECT BILIRUBIN <0.2 0 - 0.3 mg/dL [facility] Bilirubin (Indirect) NOT CALCULATED 0 - 1.5 mg/dL [facility] AST 16 0 - 37 U/L [facility] ALT 20 0 - 40 U/L [facility] TOTAL PROTEIN 6.6 6.5 - 8.0 g/dL [facility] ALBUMIN 4.6 3.9 - 4.8 g/dL [facility] GLOBULIN 2.0 1 - 4.8 g/dL [facility] A/G Ratio 2.30 1.00 - 4.80 RATIO [facility] Blood 05/07/2019 8:58 AM EDT 05/07/2019 9:00 AM EDT Leslye Gonzales MD LAB BLOOD BKR ORDERABLES [facility] Result [facility] [address] [place] [address] documented in this encounter Visit Diagnoses Diagnosis Syncope and collapse- Primary Multiple sclerosis documented in this encounter Care Teams Steersman Relationship Specialty Start Date End Date Stephan Day DO PCP - General Internal Medicine 10/24/17 03/21/21 Stephan Day DO PCP - General Internal Medicine 03/22/21 Stephan Day DO [address] [place] [address] Insurance Assigned Provider 01/26/19 11/28/19 Stephan Day DO [address] [place] [address] Insurance Assigned Provider 01/01/20 03/05/22 documented as of this encounter Additional Source Comments The information contained in this document represents components of the legal health record. It is not the complete legal health record.[facility]
--- OUTSIDE RECORDS SUMMARY | 2025-08-15 15:01 | XMS_ITS | Encounter Summary ---
Author Organization [facility] Address [address] [place] [address] [address] [place] [address] Phone Care Team Providers Care Recep Name Role Phone Barb Stephan Meena Primary Care Provider [phone] Stephan Day DO Unavailable Stephan Day DO Primary Care Provider [phone] Encounter Details Date Type Department Care Team (Late st Contact Info) Description 08/26/2020 Ancillary Orders Virtual Department [address] [place] [address] Stephan Day DO [address] [facility] [address] [place] [address] [email or web address] Other specified disorders of bone density and structure, unspecified site; Osteopenia, unspecified location Social History Tobacco Use Types Packs/Day Years [...] as of this encounter Visit Diagnoses Diagnosis Other specified disorders of bone density and structure, unspecified site Osteopenia, unspecified location documented in this encounter Care Teams Recep Relationship Specialty Start Date End Date Stephan Day DO [email or web address] PCP - General Internal Medicine 10/24/17 03/21/21 Stephan Day DO PCP - General Internal Medicine 03/22/21 Stephan Day DO [address] [place] [address] Insurance Assigned Provider 01/01/20 03/05/22 documented as of this encounter Additional Source Comments The information contained in this document represents components of the legal health record. It is not the complete legal health record.[facility]
--- OUTSIDE RECORDS SUMMARY | 2025-08-15 15:01 | XMS_ITS | Encounter Summary ---
Author Organization Formerly [facility] Address [address] [place] [id number] Phone Care Team Providers Care Card Decorator Name Role Phone Bigda, Stephan A DO Primary Care Provider [phone] Bigda, Stephan A DO Unavailable Bigda, Stephan A DO Unavailable Bigda, Stephan A DO Primary Care Provider [phone] Reason for Referral * MRI/CAT Scan - Closed Specialty Diagnoses / Procedures Referred By Contac t Referred To Contact Radiology Diagnoses MS (multiple sclerosis) Procedures MRI Cervical Spine Leslye Gonzales MD Phone: tel: fax: Referral ID Status Reason Start Date Expiration Date Visits Re quested Visits Authorized [id number] Closed 11/25/2019 11/24/2020 1 1 * MRI/CAT Scan - Closed Specialty Diagnoses / Procedures Referred By Contac t Referred To Contact Radiology Diagnoses MS (multiple sclerosis) Procedures MRI Brain Leslye Gonzales MD Phone: tel: fax: Referral ID Status Reason Start Date Expiration Date Visits Re quested Visits Authorized [id number] Closed 11/25/2019 11/24/2020 1 1 Encounter Details Date Type Department Care Team (Latest Contact Info) Description 11/21/2019 Transcribe Orders Virtual Department [address] [place] [address] Leslye Gonzales MD [address] [place] [id number] MS (multiple sclerosis) (Primary Dx) Social History Tobacco Use Types [...] * MRI BRAIN WITH AND WITHOUT CONTRAST (11/29/2019 12:47 PM EST) Anatomical Region Laterality Modality Head Magnetic Resonan ce 11/29/2019 1:00 PM EST Impressions 11/29/2019 1:09 PM EST No significant interval change in overall demyelinating plaque burden since 07/02/2018. No associated pathologic contrast enhancement or other new intracranial pathology detected. POS - [id number] Narrative 11/29/2019 1:09 PM EST TECHNIQUE: Exam performed on a 1.5 Yari high-field MRI scanner. Axial T1, T2, T2 FLAIR, T2 GRE, and diffusion-weighted with ADC map, sagittal T1 and FLAIR, followed by post-gadolinium axial and sagittal T1 sequences were obtained. FINDINGS: Comparison is made with the prior contrast-enhanced study of 03/07/2015 and non-contrast MR of 07/02/2018. The overall number, size, and configuration of the numerous, predominantly periventricular, demyelinating plaques appears overall stable. None appear to display associated restricted diffusion or contrast enhancement. No cerebellar or brainstem lesions have developed. There is a punctate enhancing focus in the left basal ganglia which is unchanged from 2015 and not clearly associated with a plaque. No evidence of acute ischemia or mass. Stable appearance of the corpus callosum. Ventricles and cerebral sulci overall stable in size. No pathologic extra-axial fluid collections are identified. No evidence of intracranial hemorrhage. No discrete orbital lesion or significant paranasal sinus inflammatory changes are apparent. Normal flow-voids are again demonstrated in the major intracranial arteries at the base.. Procedure Note Tran Dunbar MD - 11/29/2019 TECHNIQUE: Exam performed on a 1.5 Yari high-field MRI scanner. AxialT1, T2, T2 FLAIR, T2 GRE, and diffusion-weighted with ADC map, sagittal T1and FLAIR, followed by post-gadolinium axial and sagittal T1 sequenceswere obtained. FINDINGS: Comparison is made with the prior contrast-enhanced study of 03/07/2015nd non-contrast MR of 07/02/2018. The overall number, size, and configuration of the numerous, predominantlyperiventricular, demyelinating plaques appears overall stable. Noneappear to display associated restricted diffusion or contrast enhancement.No cerebellar or brainstem lesions have developed. There is a punctateenhancing focus in the left basal ganglia which is unchanged from 2015 andnot clearly associated with a plaque. No evidence of acute ischemia ormass. Stable appearance of the corpus callosum. Ventricles and cerebralsulci overall stable in size. No pathologic extra-axial fluid collectionsare identified. No evidence of intracranial hemorrhage. No discreteorbital lesion or significant paranasal sinus inflammatory changes areapparent. Normal flow-voids are again demonstrated in the majorintracranial arteries at the base.. IMPRESSION: No significant interval change in overall demyelinating plaque burdensince 07/02/2018. No associated pathologic contrast enhancement or othernew intracranial pathology detected. POS - [id number] Leslye Gonzales MD IMG MR HEAD/NECK Final Result * MRI CERVICAL SPINE (NEURO) WITH AND WITHOUT CONTRAST (11/29/2019 12:42 PM EST) Anatomical Region Laterality Modality C-spine Magnetic Resonan ce 11/29/2019 1:14 PM EST Impressions 11/29/2019 1:25 PM EST Slightly diminished conspicuity without significant change in overall extent of nonenhancing cervical cord lesions since 07/02/2018. Interval enlargement of chronic C5-6 disc protrusion. POS - [id number] Narrative 11/29/2019 1:25 PM EST TECHNIQUE: Exam performed on a 1.5 Yari high-field MRI scanner. Sagittal T1, T2 and STIR, axial T2* gradient echo and 3-D bright fluid sequences were obtained as well as axial and sagittal T1 post-gadolinium sequences. FINDINGS: Comparison is made with the prior MR of 07/02/2018. C2-3: No focal disc protrusion, central canal stenosis, or neural foraminal compromise. C3-4: No focal disc protrusion, central canal stenosis, or neural foraminal compromise. C4-5: Mild stable chronic disc bulge without acute disc protrusion, central canal stenosis, or neural foraminal compromise. C5-6: There is a chronic moderately large focal posterior/left paramedian disc protrusion which has increased in size in the interim and now impinges upon the ventral margin of the cord. No significant central canal stenosis. Neural foramina patent. C6-7: Chronic stable disc bulge without acute disc protrusion or central canal stenosis. Neural foramina overall patent. C7-T1: No focal disc protrusion, central canal stenosis, or neural foraminal compromise. T1-2: Stable small posterior central disc protrusion versus bulge. No central canal stenosis. On the sagittal sequences no focal disc protrusion or canal stenosis are demonstrated at the T2-3 or T3-4 levels. There is persistent but somewhat less conspicuous T2 hyperintense signal within the cord at the C5-C6 levels, with minimal faint chronic hyperintense T2 signal and minimal cord enlargement demonstrated at the C3 level. No associated contrast enhancement or new cord lesions apparent. No paraspinal soft tissue mass or prevertebral soft tissue swelling demonstrated. Procedure Note Tran Dunbar MD - 11/29/2019 TECHNIQUE: Exam performed on a 1.5 Yari high-field MRI scanner. SagittalT1, T2 and STIR, axial T2* gradient echo and 3-D bright fluid sequenceswere obtained as well as axial and sagittal T1 post-gadoliniumsequences. FINDINGS: Comparison is made with the prior MR of 07/02/2018. C2-3: No focal disc protrusion, central canal stenosis, or neuralforaminal compromise. C3-4: No focal disc protrusion, central canal stenosis, or neuralforaminal compromise. C4-5: Mild stable chronic disc bulge without acute disc protrusion,central canal stenosis, or neural foraminal compromise. C5-6: There is a chronic moderately large focal posterior/left paramediandisc protrusion which has increased in size in the interim and nowimpinges upon the ventral margin of the cord. No significant centralcanal stenosis. Neural foramina patent. C6-7: Chronic stable disc bulge without acute disc protrusion or centralcanal stenosis. Neural foramina overall patent. C7-T1: No focal disc protrusion, central canal stenosis, or neuralforaminal compromise. T1-2: Stable small posterior central disc protrusion versus bulge. Nocentral canal stenosis. On the sagittal sequences no focal disc protrusion or canal stenosis aredemonstrated at the T2-3 or T3-4 levels. There is persistent but somewhat less conspicuous T2 hyperintense signalwithin the cord at the C5-C6 levels, with minimal faint chronichyperintense T2 signal and minimal cord enlargement demonstrated at the N3fmbfv. No associated contrast enhancement or new cord lesions apparent.No paraspinal soft tissue mass or prevertebral soft tissue swellingdemonstrated. IMPRESSION: Slightly diminished conspicuity without significant change in overallextent of nonenhancing cervical cord lesions since 07/02/2018. Intervalenlargement of chronic C5-6 disc protrusion. POS - [id number] Leslye Gonzales MD IM MR XSPECIALTY Final Resul t documented in this encounter Visit Diagnoses Diagnosis MS (multiple sclerosis)- Primary Multiple sclerosis MS (multiple sclerosis) Multiple sclerosis MS (multiple sclerosis) Multiple sclerosis documented in this encounter Care Teams Card Decorator Relationship Specialty Start Date End Date Stephan Day DO PCP - General Internal Medicine 10/24/17 03/21/21 Stephan Day DO PCP - General Internal Medicine 03/22/21 Stephan Day DO [address] [place] [address] [email or web address] Insurance Assigned Provider 01/26/19 11/28/19 Stephan Day DO [address] [place] [address] [email or web address] Insurance Assigned Provider 01/01/20 03/05/22 documented as of this encounter Additional Source Comments The information contained in this document represents components of the legal health record. It is not the complete legal health record.[facility]
--- OUTSIDE RECORDS SUMMARY | 2025-08-15 15:01 | XMS_ITS | Encounter Summary ---
Author Organization [facility] Address [address] [place] [address] Phone Care Team Providers Care Local Tanker Truck Driver Name Role Phone Bigda, Stephan A DO Primary Care Provider [phone] Bigda, Stephan A DO Unavailable Bigda, Stephan A DO Unavailable Bigda, Stephan A DO Primary Care Provider [phone] Encounter Details Date Type Department Care Team (Late st Contact Info) Description 11/21/2019 Procedure Pass [address] [place] [address] Social History Tobacco Use Types Packs/Day Years [...] PM EST documented as of this encounter Last Filed Vital Signs Vital Sign Reading Time Taken Comments Blood Pressure - - Pulse - - Temperature - - Respiratory Rate - - Oxygen Saturation - - Inhaled Oxygen Concentration - - Weight 61.2 kg (135 lb) 11/23/2019 9:15 AM EST Height 157.5 cm (5' 2 ) 11/23/2019 9:15 AM EST Body Mass Index 24.69 11/23/2019 9:15 AM EST documented in this encounter Plan of Treatment Not on file documented as of this encounter Visit Diagnoses Not on filedocumented in this encounter Care Teams Local Tanker Truck Driver Relationship Specialty Start Date End Date Stephan Day DO PCP - General Internal Medicine 10/24/17 03/21/21 Stephan Day DO PCP - General Internal Medicine 03/22/21 Stephan Day DO [address] [place] [address] Insurance Assigned Provider 01/26/19 11/28/19 Stephan Day DO [address] [place] [address] Insurance Assigned Provider 01/01/20 03/05/22 documented as of this encounter Additional Source Comments The information contained in this document represents components of the legal health record. It is not the complete legal health record.[facility]
--- OUTSIDE RECORDS SUMMARY | 2025-08-15 15:01 | XMS_ITS | Encounter Summary ---
Author Organization [facility] Address [address] [place] [address] Phone Care Team Providers Care Office Machine Technician Name Role Phone Stephan Day DO Primary Care Provider Stephan aDy DO Unavailable Stephan Day DO Primary Care Provider [phone] Encounter Details Date Type Department Care Team (Late st Contact Info) Description 05/19/2020 Procedure Pass [facility], Ct Scan - [address] [address] Social History Tobacco Use Types Packs/Day Years [...] on filedocumented in this encounter Care Teams Office Machine Technician Relationship Specialty Start Date End Date Stephan Day DO PCP - General Internal Medicine 10/24/17 03/21/21 Stephan Day DO [email or web address] PCP - General Internal Medicine 03/22/21 Stephan Day DO [address] [place] [address] [email or web address] Insurance Assigned Provider 01/01/20 03/05/22 documented as of this encounter Additional Source Comments The information contained in this document represents components of the legal health record. It is not the complete legal health record.[facility]
--- OUTSIDE RECORDS SUMMARY | 2025-08-15 15:01 | XMS_ITS | Encounter Summary ---
Author Organization [facility] Address [address] [place] [address] [place] [address] Phone Care Team Providers Care Research And Development Specialist Name Role Phone Stephan Day DO Primary Care Provider [phone] Stephan Day DO Unavailable Stephan Day DO Unavailable Stephan Day DO Primary Care Provider [phone] Reason for Referral * Outpatient Procedure - Closed Specialty Diagnoses / Procedures Referred By Stacey urrutia Referred To Contact Diagnoses Other forms of dyspnea Procedures Adult Echo TTE Stephan Day DO Phone: tel: fax: [email or web address] Referral ID Status Reason Start Date Expiration Date Visits Re quested Visits Authorized [id number] Closed 11/12/2019 11/12/2020 1 1 Encounter Details Date Type Department Care Team (Late st Contact Info) Description 10/28/2019 Transcribe Orders Virtual Department [address] [place] [address] Stephan Day DO [address] [facility] [place], [place] [id number] [email or web address] Other forms of dyspnea (Primary Dx) Social History Tobacco Use Types [...] documented as of this encounter Results * TTE COMPREHENSIVE (11/15/2019 1:23 PM EST) Body Surface Area 1.6 m2 Weight 61 kg Systolic BP 153 mmHg Diastolic BP 88 mmHg Left Atrium Dimension Anterior-Posterior 30 15 - 40 mm Aortic Valve Peak Velocity 124.0 cm/s Aortic Valve Peak Gradient 6.00 mmHg Aortic Sinus Diameter 26 mm Ascending Aorta Diameter 31 mm Inferior Vena Cava Diameter 18 0.0 - 21 mm Interventricular Septum Thickness 7 mm Left Ventricle Internal Diameter End Diastole 44 37 - 52 mm Left Ventricle Internal Diameter End Systole 27 22 - 35 mm Left Ventricular Outflow Tract Diameter 18.0 mm LVOT VTI REST 144.00 mm Left Ventricular Outflow Tract Velocity 0.7 m/s Left Ventricular Outflow Tract Gradient at Rest 2.00 mmHg Left Ventricular Posterior Wall Thickness 9 mm Ejection Fraction 69 50 - 75 Percent Mitral Valve A Wave Speed 65.8 cm/s Mitral Valve E Wave Speed 62.4 cm/s Right Ventricle Basal Diameter 16.40 25 - 41 mm Raw LV EF% 62 % Aortic Valve Sinus Index 1 16 19 - 27 mm Ascending Aorta Diameter 19 mm Aortic Sinus Index 16 mm Ascending Aorta Index 19 mm Left Atrial Volume 26 mL Left Atrial Volume Index 16.25 mL/m2 Height 157 cm Anatomical Region Laterality Modality Heart Ultrasound Narrative 11/16/2019 8:40 AM EST A normal echocardiogram with preserved left ventricular ejection fraction with no significant valvular heart disease and a normal PA pressure. There was no prior echo for comparison Left Ventricle The left ventricular cavity size and wall thickness are normal. Left ventricular systolic function is normal. There are no segmental left ventricular wall motion abnormalities noted. The estimated ejection fraction is 69% (Normal 50-75%). The left ventricular ejection fraction was measured by the single dimension method. Left ventricular diastolic function appears within normal limits for age. There is no evidence of left ventricular thrombus. Right Ventricle The right ventricular size is normal. The right ventricular systolic function is normal. Left Atrium The left atrium is normal in size. The left atrial anterior-posterior dimension measures 30 mm (normal 15-40 mm). The LA volume is 26 mL. The LA volume index is 16.25 mL/m2 (normal indexed value is 16-34 mL/m2). The pulmonary venous flow profiles are normal. Right Atrium The right atrium is normal in size. The IVC is normal in size (2.1cm or less). The IVC measures 18 mm (normal <=21 mm). The IVC demonstrates normal collapse with inspiration which is consistent with normal RA pressure. Mitral Valve The mitral valve appears normal. The E/A ratio is 0.9. The Med E' Mars is 7.2 cm/s and the Lat E' Mars is 7.7 cm/s. The E/E' AVG is 8.4. There is no evidence of mitral stenosis. There is trace mitral regurgitation detected by spectral and color Doppler. Tricuspid Valve The tricuspid valve appears normal. There is no evidence of tricuspid stenosis. There is evidence of trace tricuspid regurgitation by color and spectral Doppler. There is an insufficient tricuspid regurgitation Doppler profile to calculate a right ventricular systolic pressure. Aortic Valve The aortic valve appears normal. The aortic valve is tricuspid. There is no evidence of valvular aortic stenosis. The peak aortic valve gradient is 6 mmHg. There is no evidence of aortic regurgitation by color and spectral Doppler. The visualized portions of the thoracic aorta appear normal. Descending thoracic aorta is not well visualized. Pulmonic Valve Pulmonary valve was not well visualized. The pulmonary valve appears normal. There is no evidence of pulmonic stenosis. There is no evidence of pulmonary regurgitation by color and spectral Doppler. Pericardium There is no evidence of pericardial effusion. There no evidence of a pleural effusion. Interatrial Septum The interatrial septum appears normal. Interventricular Septum Interventricular septal motion appears normal. General Findings The image quality was fair (3). Technique(s) used in the evaluation: Color flow Doppler and Spectral Doppler. The predominant rhythm during the study was sinus. Comparison Findings No prior studies for comparison. us Stephan A Bigda DO CV ECHO ORDERABLES Final Result documented in this encounter Visit Diagnoses Diagnosis Other forms of dyspnea- Primary Other forms of dyspnea documented in this encounter Care Teams Research And Development Specialist Relationship Specialty Start Date End Date BarbStephanDO PCP - General Internal Medicine 10/24/17 03/21/21 Stephan Day DO PCP - General Internal Medicine 03/22/21 Stephan Day DO [address] [place] [address] Insurance Assigned Provider 01/26/19 11/28/19 Stephan Day DO [address] [place] [address] Insurance Assigned Provider 01/01/20 03/05/22 documented as of this encounter Additional Source Comments The information contained in this document represents components of the legal health record. It is not the complete legal health record.[facility]
--- OUTSIDE RECORDS SUMMARY | 2025-08-15 15:01 | XMS_ITS | Encounter Summary ---
Author Organization [facility] Address [address] [place], [place] [address] [place] [address] Phone Care Team Providers Care Meat Seafood Associate Name Role Phone Barb Stephan Meena Primary Care Provider [phone] Stephan Day DO Unavailable Stephan Day DO Primary Care Provider [phone] Encounter Details Date Type Department Care Team (Late st Contact Info) Description 08/25/2020 Ancillary Orders Virtual Department [address] [place] [address] Stephan Day DO [address] [facility] [place] [address] [place] [address] [email or web address] Breast screening Social History Tobacco Use Types Packs/Day Years [...] documented as of this encounter Results * BI MAMMOGRAM SCREENING WITH TOMOSYNTHESIS WITH CAD (BILATERAL) (02/23/2021 10:59 AM EDT) Anatomical Region Laterality Modality Breast Left, Breast Right, Breast Bilateral Bila teral Mammography 02/23/2021 12:2 4 PM EDT Impressions 02/23/2021 12:26 PM EDT No mammographic change indicative of malignancy. Routine screening is recommended. BI-RADS CATEGORY: 1 - Negative. DENSITY: The breast tissue is almost entirely fat. Narrative 02/23/2021 12:26 PM EDT Bilateral full-field digital screening mammography is obtained and read in conjunction with computer-aided detection. Tomosynthesis as well as 2-D C view imaging of both breasts in two planes also obtained. Comparison made to multiple prior, most recent May 24, 2019, and most remote September 26, 2008. No dominant mass, architectural distortion, worrisome asymmetry, or suspicious calcification is identified. No skin or nipple finding of concern is appreciated. Procedure Note Gabriel Freeman MD - 02/23/2021 Bilateral full-field digital screening mammography is obtained and read inconjunction with computer-aided detection. Tomosynthesis as well as 2-D Cview imaging of both breasts in two planes also obtained. Comparison madeto multiple prior, most recent May 24, 2019, and most remote September. No dominant mass, architectural distortion, worrisome asymmetry, orsuspicious calcification is identified. No skin or nipple finding ofconcern is appreciated. IMPRESSION: No mammographic change indicative of malignancy. Routine screening isrecommended. BI-RADS CATEGORY: 1 - Negative. DENSITY: The breast tissue is almost entirely fat. us Stephan Day DO IMG MG EXAMS Final Result documented in this encounter Visit Diagnoses Diagnosis Breast screening Breast screening, unspecified Breast screening Breast screening, unspecified documented in this encounter Care Teams Meat Seafood Associate Relationship Specialty Start Date End Date Stephan Day DO [email or web address] PCP - General Internal Medicine 10/24/17 03/21/21 Stephan Day DO PCP - General Internal Medicine 03/22/21 Stephan Day DO [address] [place] [id number] [email or web address] Insurance Assigned Provider 01/01/20 03/05/22 documented as of this encounter Additional Source Comments The information contained in this document represents components of the legal health record. It is not the complete legal health record.[facility]
--- OUTSIDE RECORDS SUMMARY | 2025-08-15 15:01 | XMS_ITS | Encounter Summary ---
Author Organization [facility] Address [address] [place], [place] [address] [place] [address] Phone Care Team Providers Care Benefits Representative Name Role Phone MarleyStephan boyce Primary Care Provider [phone] Barb, Stephan Robledo DO Unavailable Barb, Stephan Meena DO Primary Care Provider [phone] Encounter Details Date Type Department Care Team (Late st Contact Info) Description 03/18/2020 Transcribe Orders Virtual Department [address] [place] [address] Stephan Day DO [address] [facility] [address] [place] [address] [email or web address] Knee pain, unspecified chronicity, unspecified laterality (Primary Dx) Social History Tobacco Use Types [...] as of this encounter Visit Diagnoses Diagnosis Knee pain, unspecified chronicity, unspecified laterality- Primary documented in this encounter Care Teams Benefits Representative Relationship Specialty Start Date End Date Stephan Day DO [email or web address] PCP - General Internal Medicine 10/24/17 03/21/21 Stephan Day DO [email or web address] PCP - General Internal Medicine 03/22/21 Stephan Day DO [address] [place] [address] [email or web address] Insurance Assigned Provider 01/01/20 03/05/22 documented as of this encounter Additional Source Comments The information contained in this document represents components of the legal health record. It is not the complete legal health record.[facility]
--- OUTSIDE RECORDS SUMMARY | 2025-08-15 15:01 | XMS_ITS | Encounter Summary ---
Author Organization [facility] Address [address] [place] [address] Care Team Providers Care Kindergarten Paraprofessional Name Role Phone BarbStephan Primary Care Provider [phone] Encounter Details Date Type Department Care Team (Late st Contact Info) Description 01/27/2017 Orders Only [facility] ACC Building [address] [place] [address] Leslye Gonzales MD [address] [place], [place] [id number] Social History Tobacco Use Types Packs/Day Years [...] Description 11/05/2025 3:00 PM EST Office Visit [facility] [address] [place] [address] Licensed Life And Health Agent: Gail Cuevas documented as of this encounter Visit Diagnoses Not on filedocumented in this encounter Care Teams Kindergarten Paraprofessional Relationship Specialty Start Date End Date Stephan Day [address] [place] [address] PCP - General 04/13/17 documented as of this encounter
--- OUTSIDE RECORDS SUMMARY | 2025-08-15 15:01 | XMS_ITS | Encounter Summary ---
Author Organization [facility] Address [address] [place], [place] [address] [place] [address] Phone Care Team Providers Care Test Kitchen Home Economist Name Role Phone Marleycarli, Stephan Robledo DO Primary Care Provider [phone] Bigda, Stephan Robledo DO Unavailable Barb, Stephan Meena DO Unavailable Bigda, Stephan A DO Primary Care Provider [phone] Encounter Details Date Type Department Care Team (Late st Contact Info) Description 04/26/2019 Ancillary Orders Virtual Department [address] [place] [address] Barb, Stephan Robledo, DO [address] [facility] [place] [address] [place] [address] [email or web address] Visit for screening mammogram; Osteopenia, unspecified location Social History Tobacco Use [...] MAMMOGRAM SCREENING WITH TOMOSYNTHESIS WITH CAD (BILATERAL) (05/24/2019 10:54 AM EDT) Anatomical Region Laterality Modality Breast Left, Breast Right, Breast Bilateral Bila teral Mammography 05/24/2019 1:09 PM EDT Impressions 05/24/2019 1:11 PM EDT Stable appearance relative to prior imaging. No findings suggestive of malignancy are seen. BI-RADS CATEGORY: 1 - Negative. DENSITY: The breast tissue is almost entirely fat. POS - [id number] Narrative 05/24/2019 1:11 PM EDT Full-field digital mammography is obtained with computer-aided detection. Comparison with prior imaging from07/18/2017 is made with older imaging dating back as far as06/06/2005 also reviewed. There is fatty fibroglandular density evident in the breasts. In addition to 2-D C view imaging, tomosynthesis images are obtained in two projections of each breast. Minor scattered densities in the breasts are noted and are unchanged.. No dominant soft tissue mass of concern, suspicious cluster of calcifications, significant interval skin changes, or architectural distortion is identified. Procedure Note Abelino Mathis MD - 05/24/2019 Full-field digital mammography is obtained with computer-aided detection.Comparison with prior imaging from07/18/2017 is made with older imagingdating back as far as06/06/2005 also reviewed. There is fatty fibroglandular density evident in the breasts. In additionto 2-D C view imaging, tomosynthesis images are obtained in twoprojections of each breast. Minor scattered densities in the breasts are noted and are unchanged.. Nodominant soft tissue mass of concern, suspicious cluster ofcalcifications, significant interval skin changes, or architecturaldistortion is identified. IMPRESSION: Stable appearance relative to prior imaging. No findings suggestive ofmalignancy are seen. BI-RADS CATEGORY: 1 - Negative. DENSITY: The breast tissue is almost entirely fat. 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 Continued right hip osteopenia with decrease in bone density since 2015. POS - [id number] Narrative 05/07/2019 8:47 AM EDT COMPARISON: 12/17/2015. BONE DENSITY FINDINGS: History: This is a 58-year-old postmenopausal female. Evaluation of the lumbar spine and hips was performed and felt to be technically adequate. Total bone mineral density in the L1-L4 vertebral bodies was calculated at 0.771 gm/cm2 with a T-score of -2.5 falling within the WHO classification of osteoporosis. Z-score of -1.1.High fracture risk. Total bone mineral density in the right hip was calculated at 0.704 gm/cm2 with a T-score of -1.9 falling within the WHO classification of osteopenia. Z-score of -1. Fracture risk increased. 11% decrease in bone density which is statistically significant. Total bone mineral density in the left hip was calculated at 0.728 gm/cm2 with a T-score of -1.8 falling within the WHO classification of osteopenia. Z-score of -0.8. Fracture risk increased. Procedure Note Jesi Moreira MD - 05/07/2019 COMPARISON: 12/17/2015. BONE DENSITY FINDINGS: History: This is a 58-year-old postmenopausal female. Evaluation of the lumbar spine and hips was performed and felt to betechnically adequate. Total bone mineral density in the L1-L4 vertebral bodies was calculated at0.771 gm/cm2 with a T-score of -2.5 falling within the WHO classificationof osteoporosis. Z-score of -1.1.High fracture risk. Total bone mineral density in the right hip was calculated at 0.704 gm/su1synb a T-score of -1.9 falling within the WHO classification ofosteopenia. Z-score of - 1. Fracture risk increased. 11% decrease in bonedensity which is statistically significant. Total bone mineral density in the left hip was calculated at 0.728 gm/wf8rvjc a T-score of -1.8 falling within the WHO classification ofosteopenia. Z-score of - 0.8. Fracture risk increased. 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 Continued righthip osteopenia with decrease in bone density since 2016. POS - [id number] Stephan Day DO IMG BD BONE DENSITY DEXA Final R esult documented in this encounter Visit Diagnoses Diagnosis Visit for screening mammogram Osteopenia, unspecified location Osteopenia, unspecified location Visit for screening mammogram documented in this encounter Care Teams Test Kitchen Home Economist Relationship Specialty Start Date End Date tSephan Day DO PCP - General Internal Medicine 10/24/17 03/21/21 Stephan Day DO [email or web address] PCP - General Internal Medicine 03/22/21 Stephan Day DO [address] [place] [address] Insurance Assigned Provider 01/26/19 11/28/19 Stephan Day DO [address] [place] [address] Insurance Assigned Provider 01/01/20 03/05/22 documented as of this encounter Additional Source Comments The information contained in this document represents components of the legal health record. It is not the complete legal health record.[facility]
--- OUTSIDE RECORDS SUMMARY | 2025-08-15 15:01 | XMS_ITS | Encounter Summary ---
Author Organization [facility] Address [address] [place] [address] Phone Care Team Providers Care Corporate Consultant Name Role Phone Bigda, Stephan A DO Primary Care Provider [phone] Bigda, Stephan A DO Unavailable Bigda, Stephan A DO Unavailable Bigda, Stephan A DO Primary Care Provider [phone] Encounter Details Date Type Department Care Team (Late st Contact Info) Description 07/16/2019 Ancillary Orders Virtual Department [address] [place] [address] Michele Stewart MD [address] [place] [id number] Right knee pain, unspecified chronicity Social History Tobacco Use Types Packs/Day Years [...] documented as of this encounter Results * US LOWER EXTREMITY NON-VASCULAR LIMITED (RIGHT) (07/16/2019 3:34 PM EDT) Anatomical Region Laterality Modality Hip Right, Thigh Right, Knee Right, Leg Right, Ankle Right, Foot Right Ultrasound 07/16/2019 4:19 PM EDT Impressions 07/16/2019 4:23 PM EDT Popliteal fossa Cueva's cyst measuring 4.9 x 1.0 x 3.5 cm with a second separate Cueva's cyst cyst measuring 2.6 x 2.1 x 1.5 cm. POS - [id number] Narrative 07/16/2019 4:23 PM EDT US LOWER EXTREMITY NON-VASCULAR LIMITED (RIGHT) HISTORY: Right knee pain, unspecified chronicity RO BAKERS CYST COMPARISON: None. TECHNIQUE: Grayscale and color Doppler ultrasound imaging of the RIGHT popliteal fossa. FINDINGS: There is an anechoic fluid collection in the popliteal fossa measuring 4.9 x 1.0 x 3.5 cm and a second fluid collection just superior to this measuring 2.6 x 2.1 x 1.5 cm. There is no internal blood flow. Procedure Note Lorna Ospina MD - 07/16/2019 US LOWER EXTREMITY NON-VASCULAR LIMITED (RIGHT) HISTORY: Right knee pain, unspecified chronicity RO BAKERS CYST COMPARISON: None. TECHNIQUE: Grayscale and color Doppler ultrasound imaging of the RIGHTpopliteal fossa. FINDINGS: There is an anechoic fluid collection in the popliteal fossa measuring 4.9x 1.0 x 3.5 cm and a second fluid collection just superior to thismeasuring 2.6 x 2.1 x 1.5 cm. There is no internal blood flow. IMPRESSION: Popliteal fossa Cueva's cyst measuring 4.9 x 1.0 x 3.5 cm with a secondseparate Cueva's cyst cyst measuring 2.6 x 2.1 x 1.5 cm. POS - [id number] Michele Stewart MD [facility] US EXTREMITY Final Result documented in this encounter Visit Diagnoses Diagnosis Right knee pain, unspecified chronicity Right knee pain, unspecified chronicity documented in this encounter Care Teams Corporate Consultant Relationship Specialty Start Date End Date Stephan Day DO PCP - General Internal Medicine 10/24/17 03/21/21 Stephan Day DO PCP - General Internal Medicine 03/22/21 Stephan Day DO [address] [place] [address] Insurance Assigned Provider 01/26/19 11/28/19 Stephan Day DO [address] [place] [address] Insurance Assigned Provider 01/01/20 03/05/22 documented as of this encounter Additional Source Comments The information contained in this document represents components of the legal health record. It is not the complete legal health record.[facility]
--- OUTSIDE RECORDS SUMMARY | 2025-08-15 15:01 | XMS_ITS | Encounter Summary ---
Author Organization [facility] Address [address] [place] [address] Phone Care Team Providers Care Sliver Former Name Role Phone Stephan Day DO Primary Care Provider [phone] Stephan Day DO Unavailable Stephan Day DO Unavailable Barb, Stephan Robledo DO Primary Care Provider [phone] Encounter Details Date Type Department Care Team (Late st Contact Info) Description 11/21/2019 Procedure Pass [address] [place] [address] Social History Tobacco Use Types Packs/Day Years [...] on filedocumented in this encounter Care Teams Sliver Former Relationship Specialty Start Date End Date Stephan Day DO PCP - General Internal Medicine 10/24/17 03/21/21 Stephan Day DO PCP - General Internal Medicine 03/22/21 Stephan Day DO [address] [place] [address] Insurance Assigned Provider 01/26/19 11/28/19 Stephan Day DO [address] [place] [address] Insurance Assigned Provider 01/01/20 03/05/22 documented as of this encounter Additional Source Comments The information contained in this document represents components of the legal health record. It is not the complete legal health record.[facility]
--- OUTSIDE RECORDS SUMMARY | 2025-08-15 15:01 | XMS_ITS | Encounter Summary ---
Author Organization [facility] Address [address] [place] [address] Phone Care Team Providers Care Dictating Machine Typist Name Role Phone Stephan Day DO Primary Care Provider [phone] Encounter Details Date Type Department Care Team (Late st Contact Info) Description 11/14/2022 Procedure Pass [facility], [address] [address] Social History Tobacco Use Types Packs/Day Years [...] on filedocumented in this encounter Care Teams Dictating Machine Typist Relationship Specialty Start Date End Date Stephan Day DO PCP - General Internal Medicine 03/22/21 documented as of this encounter Additional Source Comments The information contained in this document represents components of the legal health record. It is not the complete legal health record.[facility]
--- OUTSIDE RECORDS SUMMARY | 2025-08-15 15:01 | XMS_ITS | Encounter Summary ---
Author Organization [facility] Address [address] [place] [address] Care Team Providers Care Police Communications Dispatcher Name Role Phone BarbStephan Primary Care Provider [phone] Encounter Details Date Type Department Care Team (Late st Contact Info) Description 01/30/2017 Orders Only [facility] ACC Building [address] [place] [address] Leslye Gonzales MD [address] [place], [place] [phone] Social History Tobacco Use Types Packs/Day Years [...] Description 11/05/2025 3:00 PM EST Office Visit [facility] [address] [place] [address] Bobbin Winder: Gail Cuevas documented as of this encounter Visit Diagnoses Not on filedocumented in this encounter Care Teams Police Communications Dispatcher Relationship Specialty Start Date End Date Stephan Day [address] [place] [phone] PCP - General 04/13/17 documented as of this encounter
--- OUTSIDE RECORDS SUMMARY | 2025-08-15 15:01 | XMS_ITS | Encounter Summary ---
Author Organization [facility] Address [address] [place], [place] [address] [place] [address] Phone Care Team Providers Care Musical Instruments Assembler Name Role Phone Stephan Day DO Primary Care Provider [phone] Stephan Day DO Unavailable Stephan Day DO Primary Care Provider [phone] Encounter Details Date Type Department Care Team (Late st Contact Info) Description 04/10/2020 Transcribe Orders [facility] [place] [address] [place] [address] Stephan Day, DO [address] [facility] [place] [address] [place] [address] [email or web address] Multiple sclerosis (Primary Dx) Social History Tobacco [...] documented as of this encounter Results * Folate (04/10/2020 10:45 AM EDT) FOLIC ACID 10.0 4.2 - 19.9 ng/mL [facility] Blood 04/10/2020 10:4 5 AM EDT 04/10/2020 10:58 AM EDT us Stephan A Bigda DO LAB BLOOD BKR ORDERABLES Final R esult Performing Organization Address City/[facility]/ZIP Co de Phone Number [address] [address] * Vitamin B12 (04/10/2020 10:45 AM EDT) Pathologist [facility] VITAMIN B12 310 232 - 1,245 pg/mL [facility] Blood 04/10/2020 10:4 5 AM EDT 04/10/2020 10:58 AM EDT us Stephan A Bigda DO LAB BLOOD BKR ORDERABLES Final R esult Performing Organization Address City/[facility] Co de Phone Number [address] [address] * Comprehensive metabolic panel (04/10/2020 10:45 AM EDT) Pathologist [facility] SODIUM 139 133 - 146 mmol/L [facility] POTASSIUM 4.0 3.3 - 5.1 mmol/L [facility] CHLORIDE 101 96 - 108 mmol/L [facility] CO2 25 21 - 35 mmol/L [facility] BUN 13 6 - 19 mg/dL [facility] CREATININE 0.60 0.5 - 1.5 mg/dL [facility] GLUCOSE 98 70 - 99 mg/dL [facility] ALBUMIN 4.6 3.9 - 4.8 g/dL [facility] TOTAL PROTEIN 7.0 6.5 - 8.0 g/dL [facility] CALCIUM 9.7 8.4 - 10.3 mg/dL [facility] ALKALINE PHOSPHATASE 76 39 - 117 U/L [facility] TOTAL BILIRUBIN 0.4 0.0 - 1.2 mg/dL [facility] AST 23 0 - 37 U/L [facility] ALT 22 0 - 40 U/L [facility] GLOBULIN 2.4 1 - 4.8 g/dL [facility] EGFR 98 >59 mL/min/1.7 3m2 [facility] Comment:Estimated glomerular filtration rate calculated using the CKD-EPI equation. ANION GAP 17 10 - 20 mmol/L [facility] Blood 04/10/2020 10:4 5 AM EDT 04/10/2020 10:58 AM EDT us Stephan A Bigda DO LAB BLOOD BKR ORDERABLES Final R esult Performing Organization Address City/[facility]/ZIP Co de Phone Number [address] [address] * (ABNORMAL) 25-OH vitamin D (04/10/2020 10:45 AM EDT) 25 OH VIT D (TOTAL) 62(H) 30 - 60 ng/mL [facility] Blood 04/10/2020 10:4 5 AM EDT 04/10/2020 10:58 AM EDT us Stephan A BigCupomNow DO LAB BLOOD BKR ORDERABLES [facility] Performing Organization Address City/[facility]/ZIP Co de Phone Number [address] [address] * (ABNORMAL) CBC and differential (04/10/2020 10:45 AM EDT) WBC 4.68 4.00 - 11.00 K/uL [facility] Comment:Note Reference Range updates to all CBC and Differential results. RBC 4.40 3.72 - 5.30 M/uL [facility] HGB 13.1 11.4 - 15.9 g/dL [facility] Comment:Note updated Referen ce Ranges for all CBC and Differential results. HCT 40.4 34.2 - 46.8 % [facility] PLT 219 140 - 430 K/uL [facility] MCV 91.8 78.0 - 97.0 fL [facility] MCH 29.8 25.0 - 33.0 pg [facility] MCHC 32.4 32.0 - 36.0 g/dL [facility] RDW 13.0 11.0 - 16.0 % [facility] MPV 10.4 8.4 - 12.8 fl [facility] NRBC 0.00 0 /100 WBCs [facility] ABSOLUTE NRBC 0.00 0 K/uL [facility] DIFF METHOD Auto [facility] NEUTS 57.5 43.0 - 75.0 % [facility] LYMPHS 27.4 18.2 - 47.4 % [facility] MONOS 12.6(H) 4.00 - 11.00 % [facility] EOS 1.7 0.0 - 8.0 % [facility] BASOS 0.6 0.0 - 2.0 % [facility] Granulocytes, immature (%) 0.2 0.0 - 0.9 % [facility] ABSOLUTE NEUTS 2.69 1.80 - 7.70 K/uL [facility] ABSOLUTE LYMPHS 1.28 1.00 - 3.10 K/uL [facility] ABSOLUTE MONOS 0.59 0.20 - 0.80 K/uL [facility] ABSOLUTE EOS 0.08 0.00 - 0.80 K/uL [facility] ABSOLUTE BASOS 0.03 0.00 - 0.09 K/uL [facility] Granulocytes, immature 0.01 0.00 - 0.05 K/uL [facility] Blood 04/10/2020 10:4 5 AM EDT 04/10/2020 10:58 AM EDT us Stephan Day DO LAB BLOOD BKR ORDERABLES Final R esult [facility] [address] [place] [address] documented in this encounter Visit Diagnoses Diagnosis Multiple sclerosis- Primary documented in this encounter Care Teams Musical Instruments Assembler Relationship Specialty Start Date End Date Stephan Day DO PCP - General Internal Medicine 10/24/17 03/21/21 Stephan Day DO PCP - General Internal Medicine 03/22/21 Stephan Day DO [address] [place] [address] [email or web address] Insurance Assigned Provider 01/01/20 03/05/22 documented as of this encounter Additional Source Comments The information contained in this document represents components of the legal health record. It is not the complete legal health record.[facility]
--- OUTSIDE RECORDS SUMMARY | 2025-08-15 15:01 | XMS_ITS | Encounter Summary ---
Author Organization [facility] Address [address] [place] [address] Phone Care Team Providers Care Frit Burner Name Role Phone Bigda, Stephan A DO Primary Care Provider [phone] Bigda, Stephan A DO Unavailable Bigda, Stephan A DO Unavailable Bigda, Stephan A DO Primary Care Provider [phone] Encounter Details Date Type Department Care Team (Late st Contact Info) Description 07/15/2019 Ancillary Orders Virtual Department [address] [place] [address] Michele Stewart MD [address] [place] [id number] Right knee pain, unspecified chronicity Social History [...] as of this encounter Visit Diagnoses Diagnosis Right knee pain, unspecified chronicity documented in this encounter Care Teams Frit Burner Relationship Specialty Start Date End Date Stephan Day DO PCP - General Internal Medicine 10/24/17 03/21/21 MarleyStephan boyce PCP - General Internal Medicine 03/22/21 MarleyStephan boyce [address] [place] [address] Insurance Assigned Provider 01/26/19 11/28/19 Stephan Day DO [address] [place] [address] Insurance Assigned Provider 01/01/20 03/05/22 documented as of this encounter Additional Source Comments The information contained in this document represents components of the legal health record. It is not the complete legal health record.[facility]
--- OUTSIDE RECORDS SUMMARY | 2025-08-15 15:01 | XMS_ITS | Encounter Summary ---
Author Organization [facility] Address [address] [place] [address] [address] [place] [address] Phone Care Team Providers Care Pulp Bleacher Name Role Phone Stephan Day Meena BOYD Primary Care Provider [phone] Reason for Referral * MRI/CAT Scan - Closed Specialty Diagnoses / Procedures Referred By Stacey urrutia Referred To Contact Radiology Diagnoses Cyst of pancreas Procedures MRI Cholangiopancreatography (MRCP) CHG MRI, ABDOMEN, COMBO CHG MRI, ABDOMEN (MRI) CHG MRI, ABDOMEN W/CONTRAST Brook Landers PA [address] [place] [address] Phone: tel: fax: Referral ID Status Reason Start Date Expiration Date Visits Re quested Visits Authorized [id number] Closed 11/11/2022 01/09/2023 1 1 Encounter Details Date Type Department Care Team (Latest Contact Info) Description 11/14/2022 Transcribe Orders Virtual Department [address] [place] [address] Brook Landers PA [address] [place] [address] Cyst of pancreas (Primary Dx) Social History Tobacco Use Types [...] as of this encounter Results * MRI CHOLANGIOPANCREATOGRAPHY (MRCP) WITH AND WITHOUT CONTRAST (12/12/2022 2:32 PM EDT) Anatomical Region Laterality Modality Pancreas, Biliary Magnetic Reson ance 12/12/2022 8:17 PM EDT Impressions 12/13/2022 5:51 AM EDT 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 No worrisome features. Narrative 12/13/2022 5:51 AM EDT MRI CHOLANGIOPANCREATOGRAPHY (MRCP) WITH AND WITHOUT CONTRAST TECHNIQUE: Multiplanar MR imaging of the abdomen was performed using T1, T2, fat saturated, and diffusion weighted techniques. 2D and 3D MRCP sequences were performed. Dynamic multiphase imaging was also performed after administration of an intravenous gadolinium contrast agent. COMPARISON: MRCP 11/16/2021 FINDINGS: Lower Chest: Normal. No consolidation or pleural effusions. Liver: No suspicious focal liver lesion. Biliary: No abnormal biliary ductal dilatation. Prior cholecystectomy. Spleen: Normal. No splenomegaly or focal lesions. Pancreas: 6 cm cystic pancreatic tail focus on 3:20, similar to prior. No main pancreatic duct dilation. Adrenal Glands: Normal. No nodules. Kidneys/Ureters: No solid renal mass or hydronephrosis. Bowel: No bowel obstruction or wall thickening. Periampullary duodenal diverticulum. Colonic diverticulosis. Peritoneum/Retroperitoneum: Normal. No masses, pneumoperitoneum, or fluid. Lymph Nodes: Normal. No lymphadenopathy. Vessels: No abdominal aortic aneurysm. Bones/Soft Tissues: No suspicious focal osseous lesion. Procedure Note GotJeffrey carr MD - 12/13/2022 MRI CHOLANGIOPANCREATOGRAPHY (MRCP) WITH AND WITHOUT CONTRAST TECHNIQUE: Multiplanar MR imaging of the abdomen was performed using T1,T2, fat saturated, and diffusion weighted techniques. 2D and 3D MRCPsequences were performed. Dynamic multiphase imaging was also performedafter administration of an intravenous gadolinium contrast agent. COMPARISON: MRCP 11/16/2021 FINDINGS: Lower Chest: Normal. No consolidation or pleural effusions. Liver: No suspicious focal liver lesion. Biliary: No abnormal biliary ductal dilatation. Prior cholecystectomy. Spleen: Normal. No splenomegaly or focal lesions. Pancreas: 6 cm cystic pancreatic tail focus on 3:20, similar to prior. Nomain pancreatic duct dilation. Adrenal Glands: Normal. No nodules. Kidneys/Ureters: No solid renal mass or hydronephrosis. Bowel: No bowel obstruction or wall thickening. Periampullary duodenaldiverticulum. Colonic diverticulosis. Peritoneum/Retroperitoneum: Normal. No masses, pneumoperitoneum, orfluid. Lymph Nodes: Normal. No lymphadenopathy. Vessels: No abdominal aortic aneurysm. Bones/Soft Tissues: No suspicious focal osseous lesion. IMPRESSION: Similar 6 mm cystic pancreatic tail lesion, most likely a branch ductIPMN. No worrisome features. Brook JUAREZ IMG MR ABDOMEN Final Resul t documented in this encounter Visit Diagnoses Diagnosis Cyst of pancreas- Primary Cyst and pseudocyst of pancreas Cyst of pancreas Cyst and pseudocyst of pancreas documented in this encounter Care Teams Pulp Bleacher Relationship Specialty Start Date End Date Stephan Day DO PCP - General Internal Medicine 03/22/21 documented as of this encounter Additional Source Comments The information contained in this document represents components of the legal health record. It is not the complete legal health record.[facility]
--- OUTSIDE RECORDS SUMMARY | 2025-08-15 15:01 | XMS_ITS | Encounter Summary ---
Author Organization [facility] Address [address] [place] [address] [address] [place] [address] Phone Care Team Providers Care Political Aide Name Role Phone Stephan Day Primary Care Provider [phone] Encounter Details Date Type Department Care Team (Latest Contact Info) Description 08/09/2022 Transcribe Orders Virtual Department [address] [place] [address] Brook Landers PA [address] [facility] [place] [address] [place] [address] MS (multiple sclerosis) (Primary Dx) Social History [...] as of this encounter Results * US Thyroid Gland (08/24/2022 2:33 PM EST) Anatomical Region Laterality Modality Neck, Head, Chest Ultrasound 08/25/2022 11:5 7 AM EST Impressions 08/25/2022 12:04 PM EST Benign-appearing cystic focus noted within the right upper pole and low suspicion nodules defined within the lower pole of the right lobe as well as isthmus of the thyroid. Lower pole and isthmus lesions are TI-RADS category 3 lesions. Follow-up in one year recommended. Narrative 08/25/2022 12:04 PM EST US THYROID GLAND history: Thyroid nodule evaluation. TECHNIQUE: Ultrasound of the thyroid. Multiple static images stored. COMPARISON: No prior thyroid imaging available. FINDINGS: Cystic focus upper pole right lobe measuring 6 x 6 x 7 mm. Hypoechoic, smoothly marginated right lower pole nodule measuring 0.7 x 1.0 x 1.4 cm has associated echogenic foci that are favored to reflect colloid but are not definitively assessed. Additional is fullness nodule is similar in appearance but without echogenic foci and measures 0.4 x 7 mm. No left lobe nodules. Right lobe measures 1.5 x 1.6 x 4.4 cm and the left lobe measures 1.4 x 1.8 x 4.2 cm. Procedure Note Leif Tejada MD - 08/25/2022 US THYROID GLAND history: Thyroid nodule evaluation. TECHNIQUE: Ultrasound of the thyroid. Multiple static images stored. COMPARISON: No prior thyroid imaging available. FINDINGS: Cystic focus upper pole right lobe measuring 6 x 6 x 7 mm. Hypoechoic,smoothly marginated right lower pole nodule measuring 0.7 x 1.0 x 1.4 cmhas associated echogenic foci that are favored to reflect colloid but arenot definitively assessed. Additional is fullness nodule is similar inappearance but without echogenic foci and measures 0.4 x 7 mm. No leftlobe nodules. Right lobe measures 1.5 x 1.6 x 4.4 cm and the left lobe measures 1.4 x1.8 x 4.2 cm. IMPRESSION: Benign-appearing cystic focus noted within the right upper pole and lowsuspicion nodules defined within the lower pole of the right lobe as wellas isthmus of the thyroid. Lower pole and isthmus lesions are TI-RADS category 3 lesions. Follow-upin one year recommended. us Brook JUAREZ IMG US THYROID Final Resul t documented in this encounter Visit Diagnoses Diagnosis MS (multiple sclerosis)- Primary Multiple sclerosis MS (multiple sclerosis) Multiple sclerosis documented in this encounter Care Teams Political Aide Relationship Specialty Start Date End Date Stephan Day DO [email or web address] PCP - General Internal Medicine 03/22/21 documented as of this encounter Additional Source Comments The information contained in this document represents components of the legal health record. It is not the complete legal health record.[facility]
--- OUTSIDE RECORDS SUMMARY | 2025-08-15 15:01 | XMS_ITS | Encounter Summary ---
Author Organization [facility] Address [address] [place] [address] Phone Care Team Providers Care Conductor Sleeping Car Name Role Phone Stephan Day Primary Care Provider [phone] Reason for Referral * MRI/CAT Scan - Closed Specialty Diagnoses / Procedures Referred By Contac t Referred To Contact Radiology Diagnoses Radiculopathy, lumbar region Procedures MRI Lumbar Spine CHG MRI, LUMBAR SPINE CHG MRI, LUMBAR SPINE CONTRAST CHG MRI, LUMBAR SPINE COMBO Lorri Goel NP Phone: tel: fax: [email or web address] Referral ID Status Reason Start Date Expiration Date Visits Re quested Visits Authorized [id number] Closed 11/11/2022 01/09/2023 1 1 Encounter Details Date Type Department Care Team (Latest Contact Info) Description 11/11/2022 Transcribe Orders Virtual Department [address] [place] [address] Lorri Goel NP [address] [place] [phone] [email or web address] Radiculopathy, lumbar region (Primary Dx) Social History Tobacco Use Types [...] as of this encounter Results * MRI LUMBAR SPINE (NEURO) WITHOUT CONTRAST (12/22/2022 4:23 PM EDT) Anatomical Region Laterality Modality L-spine Magnetic Resonan ce 12/26/2022 6:00 PM EDT Impressions 12/26/2022 6:18 PM EDT Minimal degenerative disease of the spine. No severe spinal or foraminal stenosis. Narrative 12/26/2022 6:18 PM EDT MRI LUMBAR SPINE (NEURO) WITHOUT CONTRAST History: Outside Radiology Order; RADICULOPATHY LUMBAR REGION TECHNIQUE: MRI LUMBAR SPINE (NEURO) WITHOUT CONTRAST Multi-sequence, multi-planar MRI of the lumbar spine was performed without intravenous contrast. COMPARISON: Radiographs on October 31, 2022 FINDINGS: LUMBAR SPINE: Alignment and Vertebrae: Minimal grade 1 retrolisthesis of L2 on L3 and L3 on L4. No compression fracture. Marrow: No bone marrow replacing lesion. Discs and Endplates: Desiccation changes from L2 to L3 down to L5-S1 without significant loss of disc height. Conus: Normal. Soft Tissues: No prevertebral edema. Other Findings: None. Findings by level: T12-L1: Normal. No spinal or foraminal stenosis. L1-L2: Normal. No spinal or foraminal stenosis. L2-L3: Minimal bulging disc. No spinal or foraminal stenosis. L3-L4: Minimal bulging disc. No spinal or foraminal stenosis. L4-L5: Minimal bulging disc. No spinal or foraminal stenosis. L5-S1: Minimal bulging disc. No spinal or foraminal stenosis. Procedure Note Anamaria Guzman MD - 12/26/2022 MRI LUMBAR SPINE (NEURO) WITHOUT CONTRAST History: Outside Radiology Order; RADICULOPATHY LUMBAR REGION TECHNIQUE: MRI LUMBAR SPINE (NEURO) WITHOUT CONTRAST Multi-sequence, multi-planar MRI of the lumbar spine was performed withoutintravenous contrast. COMPARISON: Radiographs on October 31, 2022 FINDINGS: LUMBAR SPINE: Alignment and Vertebrae: Minimal grade 1 retrolisthesis of L2 on L3 and L3on L4. No compression fracture. Marrow: No bone marrow replacing lesion. Discs and Endplates: Desiccation changes from L2 to L3 down to L5-[id number] significant loss of disc height. Conus: Normal. Soft Tissues: No prevertebral edema. Other Findings: None. Findings by level: T12-L1: Normal. No spinal or foraminal stenosis. L1-L2: Normal. No spinal or foraminal stenosis. L2-L3: Minimal bulging disc. No spinal or foraminal stenosis. L3-L4: Minimal bulging disc. No spinal or foraminal stenosis. L4-L5: Minimal bulging disc. No spinal or foraminal stenosis. L5-S1: Minimal bulging disc. No spinal or foraminal stenosis. IMPRESSION: Minimal degenerative disease of the spine. No severe spinal or foraminalstenosis. Lorri Goel [employer]LECT[employer]IC [employer]SEMBL[employer] IMG MR XSPECIALTY Final Result documented in this encounter Visit Diagnoses Diagnosis Radiculopathy, lumbar region- Primary Thoracic or lumbosacral neuritis or radiculitis, unspecified Radiculopathy, lumbar region Thoracic or lumbosacral neuritis or radiculitis, unspecified documented in this encounter Care Teams Conductor Sleeping Car Relationship Specialty Start Date End Date Stephan Day DO [email or web address] PCP - General Internal Medicine 03/22/21 documented as of this encounter Additional Source Comments The information contained in this document represents components of the legal health record. It is not the complete legal health record.[facility]
--- OUTSIDE RECORDS SUMMARY | 2025-08-15 15:01 | XMS_ITS | Encounter Summary ---
Author Organization [facility] Address [address] [place] [address] Phone Care Team Providers Care Terminologist Name Role Phone Stephan Day Primary Care Provider [phone] Reason for Referral * Hospital - Outpatient - Closed Specialty Diagnoses / Procedures Referred By Stacey urrutia Referred To Contact Diagnoses Palpitations Procedures MCT (Mobile Cardiac Telemetry) Brook Landers PA Phone: tel: fax: Referral ID Status Reason Start Date Expiration Date Visits Re quested Visits Authorized [id number] Closed 07/08/2022 07/08/2023 1 1 Encounter Details Date Type Department Care Team (Latest Contact Info) Description 07/08/2022 Transcribe Orders Virtual Department [address] [place] [address] Brook Landers PA [address] [facility] [place] [address] [place] [address] Palpitations (Primary Dx) Social History Tobacco Use [...] documented as of this encounter Results * MCT (Mobile Cardiac Telemetry) (08/16/2022 8:33 AM EST) Anatomical Region Laterality Modality Heart Other Narrative 08/16/2022 9:21 AM EST MCT report: Indication: Palpitations. The predominant rhythm was sinus rhythm. The average heart rate was 76 bpm. The heart rate range was 54- 137 bpm. 0.24% of the tracing consisted of ventricular ectopic activity. Less than 0.1% consisted of supraventricular ectopic activity. There were no sustained arrhythmias. There is no A. fib/atrial flutter. There were 10 patient triggered events which all correlated with sinus rhythm. Conclusion: The predominant rhythm was sinus rhythm. The average heart rate was 76 bpm. There were no sustained arrhythmias including no A. fib/flutter while of 10 patient triggered events correlated with sinus rhythm. Indio Diggs MD Brook JUAREZ [facility] ORDERAB LES Final Result documented in this encounter Visit Diagnoses Diagnosis Palpitations- Primary Palpitations documented in this encounter Care Teams Terminologist Relationship Specialty Start Date End Date Stephan Day DO PCP - General Internal Medicine 03/22/21 documented as of this encounter Additional Source Comments The information contained in this document represents components of the legal health record. It is not the complete legal health record.[facility]
--- OUTSIDE RECORDS SUMMARY | 2025-08-15 15:01 | XMS_ITS | Encounter Summary ---
Author Organization [facility] Address [address] [place] [address] Phone Care Team Providers Care Leader Assembler Name Role Phone Stephan Day DO Primary Care Provider [phone] Encounter Details Date Type Department Care Team (Late st Contact Info) Description 07/08/2022 Procedure Pass Non-Invasive Cardiology [address] [place] [address] Social History Tobacco Use Types Packs/Day Years [...] on filedocumented in this encounter Care Teams Leader Assembler Relationship Specialty Start Date End Date Stephan Day DO [email or web address] PCP - General Internal Medicine 03/22/21 documented as of this encounter Additional Source Comments The information contained in this document represents components of the legal health record. It is not the complete legal health record.[facility]
--- OUTSIDE RECORDS SUMMARY | 2025-08-15 15:01 | XMS_ITS | Encounter Summary ---
Author Organization [facility] Address [address] [place] [address] Phone Care Team Providers Care Wire Annealer Name Role Phone Bigcarli, Stephan Robledo DO Primary Care Provider [phone] Bigda, Stephan A DO Unavailable Bigda, Stephan A DO Primary Care Provider [phone] Reason for Referral * MRI/CAT Scan - Closed Specialty Diagnoses / Procedures Referred By Stacey urrutia Referred To Contact Radiology Diagnoses Left sided abdominal pain Procedures CT Abdomen/Pelvis Brook Landers PA Phone: tel: fax: Referral ID Status Reason Start Date Expiration Date Visits Re quested Visits Authorized [id number] Closed 05/19/2020 05/19/2021 1 1 Encounter Details Date Type Department Care Team (Latest Contact Info) Description 05/19/2020 Transcribe Orders Virtual Department [address] [place] [address] Brook Landers PA [address] [place] [address] [place] [address] Left sided abdominal pain (Primary Dx) Social History Tobacco Use Types [...] documented as of this encounter Results * CT ABDOMEN/PELVIS WITH CONTRAST (05/27/2020 2:25 PM EDT) Anatomical Region Laterality Modality Abdomen, Pelvis Computed Tomogra phy 05/27/2020 5:30 PM EDT Impressions 05/27/2020 5:40 PM EDT No acute intra-abdominal pathology. Extensive sigmoid colon diverticulosis without evidence of diverticulitis. No bowel wall thickening or bowel inflammatory changes. Narrative 05/27/2020 5:[address] ABDOMEN/PELVIS WITH CONTRAST TECHNIQUE: CT of the abdomen and pelvis WITH intravenous contrast. COMPARISON: US ABDOMEN COMPLETE FINDINGS: LOWER THORAX: Respiratory motion artifact limits evaluation of the lung detail. Trace atelectasis. HEPATOBILIARY: Trace fatty infiltration adjacent to the falciform ligament. No suspicious hepatic lesions. No biliary ductal dilatation. Patent portal veins. Previously noted cholelithiasis is better evaluated on recent prior sonogram. No pericholecystic inflammation. No biliary ductal dilation. SPLEEN: No splenomegaly. PANCREAS: No focal masses or ductal dilatation. ADRENALS: No adrenal nodules. KIDNEYS/URETERS: No hydronephrosis, stones, or solid mass lesions. PELVIC ORGANS/BLADDER: Unremarkable. PERITONEUM / RETROPERITONEUM: No free air or fluid. LYMPH NODES: No lymphadenopathy. VESSELS: Vascular calcifications. No aneurysm. GI TRACT: Extensive diverticulosis of the sigmoid colon. No distention or wall thickening. Normal caliber appendix. BONES AND SOFT TISSUES: Left inguinal hernia repair. No suspicious osseous lesion. Osteopenia. Procedure Note Leif Jose MD - 05/27/2020 CT ABDOMEN/PELVIS WITH CONTRAST TECHNIQUE: CT of the abdomen and pelvis WITH intravenous contrast. COMPARISON: US ABDOMEN COMPLETE FINDINGS: LOWER THORAX: Respiratory motion artifact limits evaluation of the lungdetail. Trace atelectasis. HEPATOBILIARY: Trace fatty infiltration adjacent to the falciformligament. No suspicious hepatic lesions. No biliary ductal dilatation.Patent portal veins. Previously noted cholelithiasis is better evaluatedon recent prior sonogram. No pericholecystic inflammation. No biliaryductal dilation. SPLEEN: No splenomegaly. PANCREAS: No focal masses or ductal dilatation. ADRENALS: No adrenal nodules. KIDNEYS/URETERS: No hydronephrosis, stones, or solid mass lesions. PELVIC ORGANS/BLADDER: Unremarkable. PERITONEUM / RETROPERITONEUM: No free air or fluid. LYMPH NODES: No lymphadenopathy. VESSELS: Vascular calcifications. No aneurysm. GI TRACT: Extensive diverticulosis of the sigmoid colon. No distention orwall thickening. Normal caliber appendix. BONES AND SOFT TISSUES: Left inguinal hernia repair. No suspicious osseouslesion. Osteopenia. IMPRESSION: No acute intra-abdominal pathology. Extensive sigmoid colon diverticulosis without evidence ofdiverticulitis. No bowel wall thickening or bowel inflammatory changes. Brook JUAREZ [facility] CT ABD/PELVIS Final Res ult documented in this encounter Visit Diagnoses Diagnosis Left sided abdominal pain- Primary Abdominal pain, unspecified site Left sided abdominal pain Abdominal pain, unspecified site documented in this encounter Care Teams Wire Annealer Relationship Specialty Start Date End Date Stephan Day DO PCP - General Internal Medicine 10/24/17 03/21/21 Stephan Day DO [email or web address] PCP - General Internal Medicine 03/22/21 Stephan Day DO [address] [place] [address] [email or web address] Insurance Assigned Provider 01/01/20 03/05/22 documented as of this encounter Additional Source Comments The information contained in this document represents components of the legal health record. It is not the complete legal health record.[facility]
--- OUTSIDE RECORDS SUMMARY | 2025-08-15 15:02 | XMS_ITS | Encounter Summary ---
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 Not on ashish e 01/21/2023 Are you concerned about learning? Not on file 01/21/2023 No 01/21/2023 No 01/21/2023 Digital Access Answer Date Recorded No 02/17/2023 No 02/17/2023 Reliable internet access at home? Not on file 02/17/2023 Device with a working camera? 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 It is not the complete legal health record.[facility]
--- OUTSIDE RECORDS SUMMARY | 2025-08-15 15:02 | XMS_ITS | Data Portability ---
Author Organization [facility], Telehealth Patient Home Address [address] [place] [address] Assessment Encounter Date Assessment Date Assessment LastModified by Organization Details LastModified Time 08/19/2024 08/19/2024 [address] [place] [id number] ([employer]) MDM MODERATE MUST MEET 2 OUT OF 3 ELEMENTS: PROBLEMS, DATA OR RISK ELEMENT 1: PROBLEMS ADDRESSED 1 OR MORE CHRONIC ILLNESS WITH EXACERBATION OR 2 OR MORE STABLE CHRONIC ILLNESSES OR 1 UNDIAGNOSED NEW PROBLEM OR 1 ACUTE ILLNESS W/SYMPTOMS OR 1 ACUTE COMPLICATED INJURY ELEMENT 2: DATA MUST MEET 1 OF 3 CATEGORIES CATEGORY 1: REVIEW OF PRIOR EXTERNAL NOTES, REVIEW OF RESULTS, ORDERING OF EACH TEST, ASSESSMENT REQUIRING INDEPENDENT HISTORIAN OR CATEGORY 2: INDEPENDENT INTERPRETATION OF TESTS BY ANOTHER PHYSICIAN OR SPECIALIST OR CATEGORY 3: DISCUSSION OF MGT OR TEST INTERPRETATION W/EXTERNAL PHYSICIAN OR SPECIALIST ELEMENT 3: RISK RISK OF COMPLICATIONS AND/OR MORBIDITY OR MORTALITY OF PATIENT MANAGEMENT PROVIDER MUST THOROUGHLY DOCUMENT EACH ELEMENT THAT IS COVERED Not available 08/19/2024 14:01:00 11/26/2024 11/26/2024 Patient presente d to office today for their Medicare Annual Wellness Visit. Education was provided on healthy nutrition, including a diet rich in fruits and vegetables, minimizing simple carbohydrates, salt, and saturated fats. Encouraged regular cardiovascular exercise such as walking at least 30 minutes daily, 5 times per week. Emphasized preventive health measures and educated pt on fall prevention and community-based lifestyle interventions to help reduce health risks and promote healthy living. [email or web address] Not available 11/25/2024 16:11:18 07/02/2025 07/02/2025 [id number] [place] [id number] ([employer]) MDM MODERATE MUST MEET 2 OUT OF 3 ELEMENTS: PROBLEMS, DATA OR RISK ELEMENT 1: PROBLEMS ADDRESSED 1 OR MORE CHRONIC ILLNESS WITH EXACERBATION OR 2 OR MORE STABLE CHRONIC ILLNESSES OR 1 UNDIAGNOSED NEW PROBLEM OR 1 ACUTE ILLNESS W/SYMPTOMS OR 1 ACUTE COMPLICATED INJURY ELEMENT 2: DATA MUST MEET 1 OF 3 CATEGORIES CATEGORY 1: REVIEW OF PRIOR EXTERNAL NOTES, REVIEW OF RESULTS, ORDERING OF EACH TEST, ASSESSMENT REQUIRING INDEPENDENT HISTORIAN OR CATEGORY 2: INDEPENDENT INTERPRETATION OF TESTS BY ANOTHER PHYSICIAN OR SPECIALIST OR CATEGORY 3: DISCUSSION OF MGT OR TEST INTERPRETATION W/EXTERNAL PHYSICIAN OR SPECIALIST ELEMENT 3: RISK RISK OF COMPLICATIONS AND/OR MORBIDITY OR MORTALITY OF PATIENT MANAGEMENT PROVIDER MUST THOROUGHLY DOCUMENT EACH ELEMENT THAT IS COVERED Not available 07/02/2025 14:02:07 08/15/2025 08/15/2025 [address] [place] [id number] ([employer]) MDM MODERATE MUST MEET 2 OUT OF 3 ELEMENTS: PROBLEMS, DATA OR RISK ELEMENT 1: PROBLEMS ADDRESSED 1 OR MORE CHRONIC ILLNESS WITH EXACERBATION OR 2 OR MORE STABLE CHRONIC ILLNESSES OR 1 UNDIAGNOSED NEW PROBLEM OR 1 ACUTE ILLNESS W/SYMPTOMS OR 1 ACUTE COMPLICATED INJURY ELEMENT 2: DATA MUST MEET 1 OF 3 CATEGORIES CATEGORY 1: REVIEW OF PRIOR EXTERNAL NOTES, REVIEW OF RESULTS, ORDERING OF EACH TEST, ASSESSMENT REQUIRING INDEPENDENT HISTORIAN OR CATEGORY 2: INDEPENDENT INTERPRETATION OF TESTS BY ANOTHER PHYSICIAN OR SPECIALIST OR CATEGORY 3: DISCUSSION OF MGT OR TEST INTERPRETATION W/EXTERNAL PHYSICIAN OR SPECIALIST ELEMENT 3: RISK RISK OF COMPLICATIONS AND/OR MORBIDITY OR MORTALITY OF PATIENT MANAGEMENT PROVIDER MUST THOROUGHLY DOCUMENT EACH ELEMENT THAT IS COVERED Not available 08/15/2025 14:23:54 Plan of Treatment Reminders Order Date Submit Date Provider Last Modified By Organization Details Last Modified Time Details Appointments NEW PROBLEM 15 2024 02:00P M DR BRYSON Not available Not available Not available FOLLOW UP 15 2025 10:30A M DR BRYSON Not available Not available Not available Lab TSH + free T4, serum 2024 025 [facility], [address] [place] [address], [id number], 08/15/2025 14:33:50 CMP, serum or plasma 2024 025 [facility], [address] [place] [address], [address], 08/15/2025 14:33:50 CBC 2024 025 [facility], [address] [place] [address], [id number], 08/15/2025 14:33:50 PTH (parathyr oid hormone), intact + calcium, serum or plasma 2024 025 [facility], [address] [place] [address], [id number], 08/15/2025 14:33:50 cytology, urine 2024 025 [facility], [address] [place] [address], [address], 08/15/2025 14:30:54 urinalysi s complete, reflex culture 2024 025 [facility], [address] [place] [address], [address], 08/15/2025 14:30:54 Referral endocrino logy referral 2024 025 [email or web address] Sabina Sherwood MD, [address] [facility], [address] [place] [address], [address], 08/15/2025 14:40:38 urologist referral 2024 025 [email or web address] [facility], [address] [place], [address], 08/15/2025 14:40:[address] referral 2023 024 indy Rivera MD, [address] [place], [address], 07/26/2024 08:40:12 Procedures None recorded. Surgeries None recorded. Imaging US, thyroid - also attention parathyro id please 2024 025 indy [facility], [address] [place], [address], 12/10/2024 09:10:32 US, pancreas 2024 025 [facility], [address] [place], [address], 12/10/2024 09:10:32 Medication Orders ciproflox acin 250 mg tablet 2024 025 [facility], [address] [place], [address], 08/15/2025 14:29:32 ibandrona te 150 mg tablet 2024 025 [facility], [address] [place], [address], 07/02/2025 14:07:20 clonidine HCl 0.1 mg tablet 2024 025 [facility], [address] [place], [address], 08/15/2025 13:56:42 minoxidil 2.5 mg tablet 2024 025 [facility], [address] [place], [address], 11/26/2024 13:55:56 minoxidil 7 %-finaste ride 0.1 % topical solution 2024 025 [facility], [address] [place], [address], 11/26/2024 13:55:57 minoxidil 7 %-finaste ride 0.1 % topical solution 2023 024 [facility], [address] [place], [address], 08/19/2024 14:13:12 amlodipin e 5 mg tablet 2023 024 [facility], [address] [place], [address], 11/26/2024 13:42:29 minoxidil 7 %-finaste ride 0.1 % topical solution 2023 PRERNA [facility], [address] [place], [address], 07/24/2024 12:21:33 Wegovy 0.25 mg/0.5 mL subcutane ous pen injector 2023 [facility], [address] [place], [address], 11/26/2024 13:44:06 Patient TargetsNo targets recorded. Patient Instructions Encounter Date Encounter Id Patient Instructions Last Modified By Organization Details Last Modified Time 08/19/2024 [id number] high blood pressure: care instructions Not available 08/19/2024 14:13:09 learning about high blood pressure Not available 08/19/2024 14:13:09 multiple sclerosis (MS): care instructions Not available 08/19/2024 14:13:09 11/26/2024 [id number] thyroid nodules: care instructions Not available 11/26/2024 13:55:54 advance care planning: care instructions Not available 11/26/2024 13:55:54 hyperparathyroid i sm: care instructions Not available 11/26/2024 13:55:54 parathyroidectom y : before your surgery Not available 11/26/2024 13:55:54 high blood pressure: care instructions Not available 11/26/2024 13:55:54 learning about high blood pressure Not available 11/26/2024 13:55:54 Discussed and explained advance directives such as standard forms to the . Face to face discussion lasted for a duration of ___ minutes. [email or web address] Not available 11/25/2024 16:11:18 07/02/2025 [id number] hyperparathyroid i sm: care instructions Not available 07/02/2025 14:07:18 parathyroidectom y : before your surgery Not available 07/02/2025 14:07:18 osteoporosis: care instructions Not available 07/02/2025 14:07:18 08/15/2025 [id number] hyperparathyroid i sm: care instructions Not available 08/15/2025 14:32:29 parathyroidectom y : before your surgery Not available 08/15/2025 14:32:29 kidney infection : care instructions Not available 08/15/2025 14:29:29 Reason for Referral Neurologist Referral for Mul tiple sclerosis needed update referral Referring Physician: Brook Landers, Internal Medicine, Encounter Date: 07/24/2024 Urologist Referral for Pyelo nephritis Referring Physician: Stephan Bryson, Internal [facility], Encounter Date: 08/15/2025 Endocrinology Referral for H yperparathyroidism Referring Physician: Stephan Bryson, [facility], Encounter Date: 08/15/2025 Results Created Date Observation Date Name Description Value Unit Range Abnormal Flag Note LastModifiedBy Organization Detail LastModifiedTime 07/17/20 24 07/17/2024 US, echoc ardio gram No observ ation record ed. [email or web address] [facility] [address], [place], [address], 07/17/2024 16:47:35 07/23/2007/23/2024 CT, heart , w/o contr ast, w/ coron sushil calci um score No observ ation record ed. [email or web address] [facility] [address], [place], [address], 07/24/2024 08:26:48 07/29/20 24 07/29/2024 MAMMO , scree orin, digit al, bilat eral No observ ation record ed. [email or web address] [facility] [address], [place], [address], 07/29/2024 16:11:45 12/31/19 25 12/27/2024 bone densi ty No observ ation record ed. [facility]) - Callback Orders Only [address] [facility], [place], [address], 07/02/2025 13:51:10 12/31/19 25 12/27/2024 MRI, spine + hips, w/ contr ast No observ ation record ed. [facility] ([facility]) - Callback Orders Only [address] [facility], [place], [address], 07/02/2025 13:51:10 05/20/20 25 05/20/2025 US, thyro id No observ ation record ed. [email or web address] [facility] [address] [place] [address] [address], [place], [address], 08/04/2025 08:37:23 Result Notes None recorded. Problems Name Problem SNOMED Code Status Onset Date Resolution Date Notes Provider Name and Address Organization Details Recorded Time Multiple sclerosis 30133359 Active 2017 Stephan Bryson DO [address] [place] [address], [address], [facility] 8 15:11:35 Lipodystr ophy 95535146 Active 2017 Stephan Bryson DO [address] [place] [address], [address], [facility] 8 15:42:28 Herpes zoster 6882044 Active 2017 Stephan Bryson DO [address] [place] [address], [address], [facility] 8 15:23:00 Bilateral optic neuritis 571317178850 106 Active 2018 Stephan Bryson DO [address] [place] [address], [address], [facility] 9 16:13:17 Dysphagia 45731081 Active 2018 Stephan Bryson DO [address] [place] [address], [address], [facility] 9 10:41:26 Neurologi c voice disorder 66912047 Active 2018 Stephan Jazmine Bryson DO [address] [place] [address], [address], [facility] 9 10:41:45 Osteoporo sis 45499679 Active 2018 Stephan Bryson, DO [address] [place] [address], [address], [facility] 5 14:06:15 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 2018 Stephan Bryson DO [address] [place] [address], [address], [facility] 9 09:52:10 Optic neuritis 64927194 Active 2018 Stephan Bryson DO [address] [place] [address], [address], [facility] 9 11:07:53 Hypertens kiara disorder 89169197 Active 2019 Stephan Bryson DO [address] [place] [address], [address], [facility] 5 15:13:23 Palpitati ons 57380557 Active 2021 LARRY ROSAS [address] [place] [address], [address], [facility] 2 10:37:01 Rosacea 674099722 Active 2021 LARRY ROSAS [address] [place] [address], [address], [facility] 2 14:14:35 Hypotensi ve episode 46156220 Active 2021 LARRY ROSAS [address] [place] [address], [address], [facility] 2 14:15:46 Panic attack 483917216 Active 2021 LARRY ROSAS [address] [place] [address], [address], [facility] 2 11:38:24 Dysuria 45708828 Active 2021 LARRY ROSAS [address] [place] [address], [address], [facility] 2 13:46:15 Abdominal pain 40090812 Active 2021 LARRY ROSAS [address] [place] [address], [address], [facility] 2 14:25:05 Superfici al punctate keratitis 88385077 Active 2021 LARRY ROSAS [address] [place] [address], [address], [facility] 2 14:39:14 Depressiv e disorder 14031031 Active 2021 LARRY ROSAS [address] [place] [address], [address], [facility] 2 14:51:38 Low back pain 250988552 Active 2021 LARRY ROSAS [address] [place] [address], [address], [facility] 2 13:08:20 Hyperpara thyroidis m 00562108 Active 2021 Stephan Bryson DO [address] [place] [address], [address], [facility] 5 14:16:50 Thyroid nodule 901203099 Active 2021 LARRY ROSAS [address] [place] [address], [address], [facility] 2 12:15:19 Cyst of pancreas 49015480 Active 2021 LARRY ROSAS [address] [place] [address], [address], [facility] 2 12:15:27 Intoleran t of cold 89309550 Active 2021 LARRY ROSAS [address] [place] [address], [address], [facility] 2 12:24:41 Multiple benign melanocyt ic nevi 219079388 Active 2021 LARRY ROSAS [address] [place] [address], [address], [facility] 2 12:33:18 Menopause Active 2022 LARRY ROSAS [address] [place] [address], [address], [facility] 3 10:52:15 Rupture of rotator cuff of left shoulder 859014522489 63428 Active 2022 Stephan Bryson DO [address] [place] [address], [address], [facility] 3 10:42:48 Periphera l vascular disease 639923665 Active 2022 Stephan Bryson DO [address] [place] [address], [address], [facility] 3 10:47:10 Raynaud's phenomeno n 195902567 Active 2023 Stephan Bryson DO [address] [place] [address], [address], [facility] 4 14:12:08 Intermitt ent palpitati ons 616338126 Active 2023 Stephan Bryson DO [address] [place] [address], [address], [facility] 4 15:15:01 Epigastri c pain 67240443 Active 2023 Stephan Bryson DO [address] [place] [address], [address], [facility] 4 14:21:39 Syncope 875716856 Active 2023 LARRY ROSAS [address] [place] [address], [address], [facility] 4 13:56:14 Essential hypertens ion 31345357 Active 2023 Stephan Bryson, DO [address] [place] [address], [address], [facility] 5 14:05:15 Loss of hair 175929044 Active 2023 LARRY ROSAS [address] [place] [address], [address], [facility] 4 12:18:01 Acute urinary tract infection 302122227 Active 2023 Stephan Bryson DO [address] [place] [address], [address], [facility] 4 15:56:35 Female pattern alopecia 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 Active 2023 Stephan Bryson, DO [address] [place] [address], [address], [facility] 5 14:02:18 Pyeloneph ritis 41354158 Active 2024 Setphan Bryson DO [address] [place] [address], [address], [facility] 5 14:20:52 Hematuria of undiagnos ed cause 799537965 Active 2024 Stephan Bryson DO [address] [place] [address], [address], [facility] 5 14:22:02 Multinodu lar goiter 598173469 Active 2024 Stephan Bryson DO [address] [place] [address], [address], [facility] 5 14:33:37 Subclinic al hypothyro idism 43224398 Active 2024 Stephan Bryson DO [address] [place], [address], [facility] 5 14:36:57 Problem Notes None recorded. Procedures Surgical History Date Name Laterality Status Provider Name and Address Organization Details Recorded Time 09/30/19 22 Date of Last Pap Smear completed Stephan Bryson, DO [address] [place] [address], [address], [facility] 10/19/2021 08:30:23 12/18/19 18 Hernia Repair completed Stephan Bryson, [address], [address], [facility] 06/14/2019 10:45:18 06/17/20 13 Colonoscopy completed Marva Pryor [facility] 05/14/2019 10:28:48 Hernia Repair completed Stephan boyce, [address], [address], [facility] 06/14/2019 10:45:18 Imaging Results None recorded. Procedure Notes None recorded. Medical Equipment None Reported. Allergies Allergen ID Allergen Name Allergen Category Reaction Reaction Severity Criticality Documentation Date Start Date Code Code System Note Provider Name and Address Organization Details Recorded Time 1336 Ultram medicatio n Not available Not available Not available 02/06/2018 98601 6 [facility] 8 14:55:15 6153 clomipram ine medicatio n Not available Not available Not available 08/09/2022 2597 RxNorm LARRY ROSAS [address] [place], [address], [facility] 2 11:40:44 9804 prednison e medicatio n Not available Not available Not available 08/13/2025 8640 RxNorm Not Available prerna - External Data Service - prod 5 08:56:34 9805 tramadol medicatio n Not available Not available Not available 08/13/2025 95598 RxNorm Not Available prerna - External Data Service - prod 5 08:56:34 9808 chlorhexi dine medicatio n Not available Not available Not available 08/13/20252017 2358 RxNorm unrec ogniz ed react ion (text : Pruri tus (itch ing), code: [id number]) (from [facility]) Not Available prerna - External Data Service - prod 5 08:59:22 9810 chlorhexi dine gluconate medicatio n itching Not available Not available 08/13/20252017 20762 RxNorm Not Available prerna - External Data Service - prod 5 08:59:27 9811 tramadol hydrochlo ride medicatio n Not available Not available Not available 08/13/2025 54368 RxNorm unrec ogniz ed react ion (text : Unkno wn, code: [id number]) (from [facility]) Not Available prerna - External Data Service - prod 5 08:59:27 9812 gabapenti n medicatio n palpitati ons Not available low 08/13/20252020 99390 RxNorm Not Available prerna - External Data Service - prod 5 09:01:09 Medications Name Sig Start Date Stop Date Status Note LastModified by Organization Details LastModified Time BD Luer-Brien Syringe 3 mL 23 x 1 USE DIRECTED (FOR MONTHLY B-12 INJ) 06/28 completed Not Available Not Available Not Available amoxicillin 500 mg capsule 02/06 completed Not Available Not Available Not Available buspirone 5 mg tablet TAKE ONE TABLET BY MOUTH EVERY DAY 06/28 completed Not Available Not Available Not Available venlafaxine ER 37.5 mg capsule,ext ended release 24 hr 02/06 completed Not Available Not Available Not Available clonidine HCl 0.1 mg tablet Take 1 tablet twice a day by oral route for 30 days. 08/15 completed Not Available Not Available Not Available prednisone 10 mg tablet 02/06 completed Not Available Not Available Not Available ketoconazol e 2 % shampoo APPLY TOPICALLY TO THE AFFECTED AREA(S), LATHER, LEAVE FOR 5 MINUTES & THEN RINSE OFF ONCE DAILY active Not Available Not Available No t Available trazodone 50 mg tablet TAKE ONE TABLET BY MOUTH AT BEDTIME 09/28 completed Not Available Not Available Not Available cefpodoxime 200 mg tablet TAKE 1 TABLET BY MOUTH EVERY 12 HOURS FOR 7 DAYS 08/15 completed Not Available Not Available Not Available alendronate 70 mg tablet TAKE 1 TABLET BY MOUTH EVERY WEEK ON AN EMPTY STOMACH WITH WATER ONLY. active Not Available Not Available No t Available propranolol ER 60 mg capsule,24 hr,extended release Take 1 capsule every day by oral route. 11/19 completed Not Available Not Available Not Available amlodipine 2.5 mg tablet TAKE 1 TABLET EVERY DAY BY MOUTH 11/26 completed Not Available Not Available Not Available ciprofloxac in 250 mg tablet Take 1 tablet every 12 hours by oral route for 7 days. 2024 active Not Available Not Available Not Avai lable amlodipine 5 mg tablet Take 1 tablet every day by oral route for 30 days. 11/26 completed Not Available Not Available Not Available sulfamethox azole 800 mg-trimetho prim 160 mg tablet TAKE ONE TABLET BY MOUTH EVERY 12 HOURS 11/26 completed Not Available Not Available Not Available minoxidil 2.5 mg tablet TAKE ONE TABLET BY MOUTH EVERY DAY active Not Available Not Available No t Available doxycycline monohydrate 100 mg tablet TAKE ONE CAPSULE BY MOUTH TWICE A DAY WITH FOOD FOR 7 DAYS 06/28 completed Not Available Not Available Not Available pentoxifyll ine ER 400 mg tablet,exte nded release TAKE ONE TABLET BY MOUTH TWICE A DAY 08/15 completed Not Available Not Available Not Available alendronate 35 mg tablet TAKE 1 TABLET BY MOUTH ONCE WEEKLY ON EMPTY STOMACH AND WATER 06/28 completed Not Available Not Available Not Available lorazepam 0.5 mg tablet TAKE ONE TABLET BY MOUTH THREE TIMES A DAY NEEDED FOR 10 DAYS 06/28 completed Not Available Not Available Not Available fluvoxamine 25 mg tablet TAKE ONE TABLET BY MOUTH EVERY DAY 08/09 completed Not Available Not Available Not Available amitriptyli ne 10 mg tablet Take 1 tablet every day by oral route for 30 days. 10/28 completed Not Available Not Available Not Available baclofen 10 mg tablet TAKE ONE-HALF TABLET BY MOUTH TWICE A DAY NEEDED FOR MUSCLE SPASMS active Not Available Not Available No t Available doxycycline monohydrate 100 mg capsule TAKE ONE CAPSULE BY MOUTH TWICE A DAY FOR 10 DAYS 06/28 completed Not Available Not Available Not Available biotin 10,000 mcg capsule Take by oral route. active Not Available Not Available No t Available erythromyci n 5 mg/gram (0.5 %) eye ointment PLACE 1/2 INCH RIBBON INTO EACH EYE FOUR TIMES A DAY FOR 7 DAYS 06/28 completed Not Available Not Available Not Available cyanocobala min (vit B-12) 1,000 mcg/mL injection solution INJECT 1ML SUBCUTANE OUSLY EVERY MONTH 06/28 completed Not Available Not Available Not Available triamcinolo ne acetonide 0.1 % topical ointment APPLY TO AFFECTED AREA S) TOPICALLY TWO TIMES A DAY 06/28 completed Not Available Not Available Not Available propranolol ER 80 mg capsule,24 hr,extended release TAKE ONE CAPSULE BY MOUTH EVERY DAY 05/25 completed Not Available Not Available Not Available metronidazo le 0.75 % topical cream APPLY A THIN LAYER TO THE AFFECTED AREA(S) BY TOPICAL ROUTE 2 TIMES PER DAY IN THE MORNING AND EVENING 06/28 completed Not Available Not Available Not Available bupropion HCl 75 mg tablet TAKE ONE TABLET BY MOUTH TWICE A DAY active Not Available Not Available No t Available nitroglycer in 0.4 mg sublingual tablet 12/07 completed Not Available Not Available Not Available Valtrex 1 gram tablet Take 1 tablet 3 times a day by oral route for 7 days. 02/15 completed Not Available Not Available Not Available betamethaso ne dipropionat e 0.05 % topical cream APPLY TWO TIMES A DAY TO RIGHT THIGH FOR 2 WEEKS, THEN TAKE 1 WEEK OFF, NOT FOR FACE OR BODY FOLDS. REPEAT FOR 3 CYCLES, IF NOT IMPROVED THE 06/28 completed Not Available Not Available Not Available omeprazole 20 mg capsule,del ayed release 02/06 completed Not Available Not Available Not Available hydroxyzine HCl 25 mg tablet TAKE ONE TABLET BY MOUTH THREE TIMES A DAY NEEDED 09/27 completed Not Available Not Available Not Available lisinopril 5 mg tablet TAKE ONE TABLET BY MOUTH EVERY DAY 09/27 completed Not Available Not Available Not Available hydrochloro thiazide 25 mg tablet TAKE ONE TABLET BY MOUTH EVERY DAY 11/01 completed Not Available Not Available Not Available gabapentin 100 mg capsule Take 1 capsule 3 times a day by oral route for 30 days. 12/24 completed Not Available Not Available Not Available propranolol 20 mg tablet TAKE ONE TABLET BY MOUTH EVERY DAY 09/27 completed Not Available Not Available Not Available clomipramin e 25 mg capsule TAKE 1 CAPSULE BY MOUTH ONCE DAILY 08/09 completed Not Available Not Available Not Available doxycycline hyclate 100 mg tablet TAKE 1 TABLET 2 TIMES A DAY FOR 14 DAYS 08/04 completed Not Available Not Available Not Available atenolol 50 mg tablet TAKE ONE TABLET BY MOUTH EVERY DAY 08/04 completed Not Available Not Available Not Available minoxidil 2 % topical solution APPLY 1 MILLILITE R BY TOPICAL ROUTE 2 TIMES PER DAY , EVERY DAY, DIRECTLY ONTO THE SCALP IN THE HAIR LOSS AREA 11/26 completed Not Available Not Available Not Available tobramycin 0.3 %-dexametha sone 0.1 % eye drops,suspe nsion 08/04 completed Not Available Not Available Not Available oxycodone 5 mg tablet TAKE ONE TABLET BY MOUTH EVERY 4 HOURS NEEDED FOR MODERATE PAIN 12/22 completed Not Available Not Available Not Available Rebif (with albumin) 22 mcg/0.5 mL subcutaneou s syringe EVERY OTHER DAY; SKIPS TWO DAYS (gets 9 syringes a month)med ically necessary 08/15 completed Not Available Not Available Not Available olmesartan 20 mg tablet TAKE ONE TABLET BY MOUTH EVERY DAY DIRECTED 07/02 completed Not Available Not Available Not Available olmesartan 40 mg tablet TAKE 1 TABLET BY MOUTH ONCE DAILY IN THE MORNING 06/28 completed Not Available Not Available Not Available Finacea 15 % topical gel APPLY A THIN LAYER TO THE AFFECTED AREAS TWO TIMES A DAY 04/29 completed Not Available Not Available Not Available Restasis 0.05 % eye drops in a dropperette ADMINISTE R 1 DROP INTO BOTH EYES 2 TIMES A DAY 08/15 completed Not Available Not Available Not Available Rebif Titration Pack 8.8 mcg/0.2 mL-22 mcg/0.5 mL subcutaneou s syringe 12/09 completed Not Available Not Available Not Available ibandronate 150 mg tablet TAKE 1 TABLET BY MOUTH ONCE EVERY 30 DAYS active Not Available Not Available No t Available Tylenol Extra Strength PRN active Not Available Not Available Not Available Advil prn 11/06 completed Not Available Not Available Not Available Mylanta 12/07 completed Not Available Not Available Not Available [place] 3 1200mg 1 per day 11/06 completed Not Available Not Available Not Available alpha lipoic acid 300mg 1 po QD 06/28 completed Not Available Not Available Not Available magnesium gluconate 27 mg magnesium (500 mg) tablet TAKE ONE TABLET BY MOUTH EVERY DAY active Not Available Not Available No t Available cholecalcif yin (vitamin D3) 1,250 mcg (50,000 unit) capsule TAKE 1 CAPSULE BY MOUTH ONCE A WEEK active Not Available Not Available No t Available GaviLyte-G 236 gram-22.74 gram-6.74 gram-5.86 gram oral solution FOLLOW PACKAGE INSTRUCTI ONS DIRECTED 09/12 completed Not Available Not Available Not Available B12 qd 08/15 completed Not Available Not Available Not Available Vitamin D3 50 mcg (2,000 unit) capsule Take by oral route. 06/28 completed Not Available Not Available Not Available Xiidra 5 % eye drops in a dropperette INSTILL ONE DROP IN EACH EYE TWO TIMES A DAY active Not Available Not Available No t Available baclofen 5 mg tablet 06/28 completed Not Available Not Available Not Available minoxidil 7 %-finasteri de 0.1 % topical solution Apply 1 mL every day by topical route as directed for 30 days. 2024 active Not Available Not Available Not Avai lable Wegovy 0.25 mg/0.5 mL subcutaneou s pen injector Inject 0.25 mg every week by subcutane ous route as directed for 30 days. 11/26 completed Not Available Not Available Not Available Flowflex COVID-19 Antigen Home Test kit TEST DIRECTED TODAY 07/06 completed Not Available Not Available Not Available Miebo (PF) 100 % eye drops INSTILL ONE DROP INTO BOTH EYES 4 TIMES A DAY active Not Available Not Available No t Available Vitals Date Recorded Body height Body mass index (BMI) Body weight Heart rate Oxygen saturation Systolic And Diastolic Provider Name and Address Organization Details Last Updated DateTime 157.48 cm 23.8 kg/m2 14414.0 1 g 84 /min 100 % 132/86 mm[Hg] Odette Godoy [facility] 5 13:29:16 Date Recorded Body height Body mass index (BMI) Body weight Heart rate Oxygen saturation Systolic And Diastolic Provider Name and Address Organization Details Last Updated DateTime 157.48 cm 24.5 kg/m2 48505.3 8 g 74 /min 98 % 136/88 mm[Hg] Odette Drew [facility] 5 13:49:50 Date Recorded Body weight Heart rate Oxygen saturation Systolic And Diastolic Provider Name and Address Organization Details Last Updated DateTime 07/24/2024 26053.19 g 75 /min 100 % 132/86 mm[Hg] Odette Drew [facility] 07/24/2024 11:44:15 Date Recorded Body height Heart rate Oxygen saturation Systolic And Diastolic Provider Name and Address Organization Details Last Updated DateTime 08/15/2025 157.48 cm 117 /min 98 % 130/82 mm[Hg] Clara Phillip [facility] 08/15/2025 13:54:32 Date Recorded Body height Body mass index (BMI) Body weight Heart rate Oxygen saturation Systolic And Diastolic Provider Name and Address Organization Details Last Updated DateTime 4 157.48 cm 23.8 kg/m2 70646.0 1 g 85 /min 100 % 128/68 mm[Hg] Annia Enamoradomond [facility] Medicine 4 13:44:19 Social History Question Answer Notes LastModified by [employer] (Closed) Details LastModified Time Tobacco Smoking Status [facility] 02/06/2018 14:57:55 What Is Your Level Of Caffeine Consumption? Moderate 2 Cups Per Day Information not available 05/29/2018 What Was The Date Of Your Most Recent Tobacco Screening? 08/15/2025 [email or web address] Information not available 08/15/2025 Sex: Unknown Functional Status Question Answer Note LastModified by [employer] (Closed) Details LastModified Time Do you or have you ever used any other forms of tobacco or nicotine? No [email or web address] Information not available 09/20/2023 What is your level of alcohol consumption? Occasional Information not available 05/29/2018 What is your exercise level? Occasional walking everyday Information not available 05/29/2018 Mental Status None recorded. Family History Relationship Description Onset Age of this Age Resolved Age Notes LastModified by Organization Details LastModified Time Father Substance abuse 30 [email or web address] Not available 2020 10:11:50 Mother Sleep disorder 60 [email or web address] Not available 2020 10:11:50 Mother Osteoporosis 70 [email or web address] Not availab le 11/06/2020 10:11:50 Mother Hypertensive disorder 55 [email or web address] Not available 2020 10:11:50 Mother Arthritis 60 [email or web address] Not available 11/06/2020 10:11:50 Unspecified Relation Multiple sclerosis 18 50 [email or web address] Not available 2020 10:11:50 Sister Substance abuse 15 38 sbucko Not available 2020 10:11:50 Medical History Condition Response Coronary Artery Disease N Gout N Other N Kidney Stones N Blood Diseases N Blood Transfusion N Breast Cancer N Lung Disease N Depression N COPD N Defects or Inherited Disease N Anxiety Disorder N Muscle, Joint, or Bone Problems N Obesity N Vision or Eye Problems N Arthritis N Infertility N Polyps N Mental Disorder N Cancer N Stroke N Varicosities N Endometriosis N Bladder or Kidney Problems N High Cholesterol N Liver Disease N Fibromyalgia N Headaches N Kidney Disease N Allergies/Hayfever N Heart Problems N Hospitalizations N Thyroid Problems N GI Problems N Eating Disorder N Skin Problems N Anemia N MRSA exposure N Constipation N Mental Illness N Diabetes N Ovarian Cancer N Seizures/Epilepsy N Tuberculosis N Congestive Heart Failure (CHF) N Eczema N Abuse/Domestic Violence N Diverticulitis N Asthma N Reflux/GERD N Hepatitis N Heart Disease N Pulmonary Embolism N Hypertension N Chicken Pox N Autism Spectrum Disorder (ASD) N Osteoporosis N Gynecological History Statement/Question Response Date of Last Pap Smear 09/30/2021 Obstetrics History GPAL:G 0 P 0 0 0 0 Immunizations Vaccine Type Date Status Note Provider Nam e and Address Organization Details Recorded Time COVID-19, mRNA, LNP-S, PF, 100 mcg/0.5mL dose or 50 mcg/0.25mL dose 10/06/2021 completed Not Available [facility] COVID-19, mRNA, LNP-S, PF, 100 mcg/0.5mL dose or 50 mcg/0.25mL dose 12/11/2020 completed Not Available [facility] 09:28:12 COVID-19, mRNA, LNP-S, PF, 100 mcg/0.5mL dose or 50 mcg/0.25mL dose 01/08/2021 completed Not Available [facility] 4 09:28:12 Tdap 05/19/2020 completed Not Available [facility] 10/16/2023 09:28:13 Past Encounters Encounter ID Performer Location Encounter Start Date Encounter Closed Date Diagnosis/Indication Diagnosis SNOMED-CT Code Diagnosis ICD10 Code Diagnosis IMO Codes Diagnosis Note [id number] Stephan Bryson DO [facility] [address] [facility], [employer] [place] [address] 02/06/2018 14:42:37 02/06/2018 16:13:11 Difficulty passing urine 319589651 R39.198 urinalysis was negative Multiple sclerosis 57797 007 G35 will cont tiny dose of oxycod for neurpathy as discussed Neuropathy 647658370 G62 .9 [id number] Stephan Bryson DO [facility] [address] [facility], [place] [address] 04/06/2018 14:42:16 04/06/2018 15:52:50 Multiple sclerosis 11881217 G35 will cont tiny dose of oxycod for neurpathy as discussed but needs monitoring lab work as well including cbc cmp tsh vitd also has noted areas of lipodystro phy located along the areas of prior injection sites. 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 [address] 05/29/2018 13:36:01 05/29/2018 16:44:38 Adult health examination 866414652 Z00.01 given episode of cp we will need to get a ett if recurs she must go to ER Active or passive immunization 209969477 Z23 Atypical chest pain 1025 42124 R07.89 i am concerned told she needs to get this eval must no exceptions and to call emt if cp returns [id number] Stephan Bryson [facility] [address] [place] [address],[place] [address] 07/06/2018 15:43:23 07/09/2018 10:46:58 Herpes zoster 4336647 B02.9 Multiple sclerosis 06912 007 G35 Lipodystrophy 00006624 E 88.1 [id number] Stephan MeenaBarbie Bryson [facility] [address],[facility] [place] [address] 07/27/2018 14:46:50 07/27/2018 15:33:22 Multiple sclerosis 01148205 G35 will cont tiny dose of gabapentin for neurpathy as discussed but needs monitoring lab work as well including cbc cmp tsh vitd also has noted areas of lipodystro phy located along the areas [place] [id number] Stephan Bryson [facility] [address],[place] [address] 12/21/2018 11:08:31 12/21/2018 11:47:02 Multiple sclerosis 52623053 G35 has noted that she has had a prob with optic neuritis and is having increasing trouble with her vision tony peripheral vison becomes much worse and is finding it very difficult to drive relates that her optho neurol is worried about her driving pt relates that she has noted that her work is suffering now and that she can no longer do it effectivel y recc she see a spec with optho for people with MS will cont tiny dose of gabapentin for neuropathy as discussed does not want to try Lyrica but needs monitoring lab work as well including cbc cmp tsh vitd also has noted areas of lipodystro phy located along the areas of prior injection sites. these areas are Atypical pneumonia 90625 6009 J18.9 incorrect diagnosis please ignore Stephan Bryson [facility] [address] [facility],[place] [address] [facility] [address] 01/28/2019 15:52:57 01/29/2019 08:59:02 Hoarse 63578776 R49.0 given it has been progressin g over the last 4 weeks and also having the taste of blood in mouth Multiple sclerosis 52252 007 G35 has noted that she has had a prob with optic neuritis and is having increasing trouble with her vision tony peripheral vison becomes much worse and is finding it very difficult to drive relates that her optho neurol is worried about her driving pt relates that she has noted that her work is suffering now and that she can no longer do it effectivel y note her pain can be quite severe also her voice has become hoarse ? if related to MS will cont tiny dose of gabapentin for neuropathy as discussed does not want to try Lyrica but needs monitoring lab work as well including cbc cmp tsh vitd also has noted areas of lipodystro phy located along the areas of prior injection sites. these areas are Diarrhea 09752824 R19.7 noted exposure to round worm Stephan Bryson DO [facility] [address] [facility],[place] [address] 02/15/2019 10:23:27 02/15/2019 11:00:30 Difficulty speaking 02273653 R49.9 with progressiv e dyphagia in setting of MS> will ask to have ENT see pt sooner than March she has noted a recent worsening of her symptoms no pulmonary symptoms Dysphagia 57538433 R13.1 0 [id number] Stephan Bryson DO [facility] [address] [facility], [place] [address] 03/18/2019 14:53:53 03/18/2019 15:46:19 On examination - dysphonia 448103855 R49.0 has a follow up exam with the speech therapist who will do a video eval of the vocal cords omeprazole has not helped so gerd is not th e issue. Multiple sclerosis 01196 007 G35 has noted that she has had a prob with optic neuritis and is having increasing trouble with her vision tony peripheral vison becomes much worse and is finding it very difficult to drive relates that her optho neurol is worried about her driving pt relates that she has noted that her work is suffering now and that she can no longer do it effectivel y note her pain can be quite severe also her voice has become hoarse ? if related to MS still taking tiny dose of gabapentin for neuropathy as discussed but needs further speech eval also has noted areas of lipodystro phy located along the areas of prior injection sites. 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 cont conserv tx including zantac and hot pack and keep hydrated gargle with salt h2O [id number] Stephan Bryson DO [facility] [address] [facility],[place] [address] 05/14/2019 09:22:07 05/14/2019 10:23:33 Multiple sclerosis 41890505 G35 has had worsening of her symptoms tony fatigue etc relates not sure how well she is sleeping has noted that she has had a prob with optic neuritis and is having increasing trouble with her vision tony peripheral vison becomes much worse and is finding it very difficult to drive relates that her optho neurol is worried about her driving pt relates that she has noted that her work is suffering now and that she can no longer do it effectivel y note her pain can be quite severe also her voice has become hoarse ? is related to MS still taking tiny dose of gabapentin for neuropathy as discussed but needs further speech eval also has noted areas of lipodystro phy located along the areas of prior injection sites. these areas are Dysphagia 16915082 R13.1 0 per the MS will need to adjust foodstuffs and cont to be careful re aspiration Osteoporosis 34321236 M8 1.0 BMD is stable and shows stable ostopenia of hips Neurogenic urinary bladder 686446949 N31.9 will need to check UA on occ Sleep apnea 12193181 G47 .30 [id number] Stephan Bryson DO [facility] [address] [facility] [address],[place] [place] [facility] [place] [address] 06/14/2019 10:39:33 06/14/2019 11:14:00 Renewal of prescription 069634207 Z76.0 will renew meds before the insurance changes Exacerbati on of multiple sclerosis 972091016 G35 [id number] Stephan Bryson DO [facility] [address] [facility],[place] [address] 07/16/2019 13:34:10 07/16/2019 14:38:37 Multiple sclerosis 34770125 G35 has had worsening of her symptoms tony fatigue etc relates not sure how well she is sleeping has noted that she has had a prob with optic neuritis and is having increasing trouble with her vision tony peripheral vison becomes much worse and is finding it very difficult to drive relates that her optho neurol is worried about her driving we need to send to optho for eval pt relates that she has noted that her work is suffering now and that she can no longer do it effectivel y note her pain can be quite severe also her voice has become hoarse ? is related to MS still taking tiny dose of gabapentin for neuropathy as discussed but needs further speech eval also has noted areas of lipodystro phy located along the areas of prior injection sites. these areas are Optic neuritis 56875826 H46.[address] diamond Pain in right knee 10594 35261 84081 M25.561 has a pain in post knee seen at urgent care will be getting the US to r/o clot [id number] Stephan Bryson DO [facility] [address] [facility],[place] [address] 08/19/2019 13:23:03 08/19/2019 13:55:54 Corneal ulcer 74355823 H16.009 to be cont on her doses of eye ointments Blepharitis 74023453 H01 .9 to be continued on her meds as ordered by ophtho Multiple sclerosis 71615 007 G35 has had worsening of her symptoms tony fatigue etc relates not sure how well she is sleeping has noted that she has had a prob with optic neuritis and is having increasing trouble with her vision tony peripheral vison becomes much worse and is finding it very difficult to drive relates that her optho neurol is worried about her driving and has noted corneal ulcer,blep harititis and keratosis etc pt relates that she has noted that her work is suffering now and that she can no longer do it effectivel ynote her pain can be quite severewe need to get the notes from the two specialist s also her voice has become hoarse ? is related to MS still taking tiny dose of gabapentin for neuropathy as discussed but needs further speech malaal also has noted areas of lipodystro phy located along the [place]. [place] [id number] Stephan Bryson DO [facility] [address] [facility] [address],[place] [address] 10/28/2019 12:01:59 10/28/2019 13:37:54 Hypertensive disorder 10686523 I10 BP was very elevated, started prop 60, 130s/80s Will maintain current tx and follow up after echo Bilateral optic neuritis 3458545152 98791 H46.9 No change in vision Anxiety 79526482 F41.9 Has had increased anx due to life stress Will try 1/2 bup dose and recheck on f/u Dyspnea on exertion 6084 5006 R06.09 New onset dyspnea Intermitte nt claudication 59220628 I73.9 Bilat LE pain, 40 PYH former smoker Dysesthesia of scalp 735 259904 R20.8 Seeing neuro this week Renewal of prescription 266078214 Z76.0 will renew meds before the insurance changes [id number] Stephan Bryson DO [facility] [address] [facility],[place] [address] 11/04/2019 14:39:00 11/04/2019 15:54:16 Idiopathic peripheral autonomic neuropathy 67153080 G90.09 will cont to treat her hypertensi on and be careful and we will have her increase the dose to 80mg Bilateral optic neuritis 4257515701 41566 H46.9 No change in vision noted that her corneal ulcer is slowly healing Hypertensive disorder 38 896675 I10 BP was very elevated,o n prop 60, 130s/80s was doing great for a whoile on 60 mg but then had been jumping up and down Will maintain current tx and follow up after echo [id number] Stephan Bryson DO [facility] [address] [facility] [address],[place] [address] 11/13/2019 10:27:36 11/13/2019 12:23:57 [id number] Stephan Bryson DO [facility] [address] [facility] [address],[place] [address] 11/19/2019 08:58:09 11/19/2019 10:14:34 Multiple sclerosis 43210912 G35 currently taking rebif (with albumin) still having symptoms of MS including fatigue, burning sensations along the neck, stiff legs seeing neuro Hypertensive disorder 38 389839 I10 reported BP for home monitor was 162/92 in office office BP was reported to be 120/82 well controlled on propranolo l Anxiety 95836605 F41.9 pt is very anxious about MS and high BP readings when she sees her BP is high it makes it difficult for her to sleep or focus on other things is going to titrate down on her wellbutrin to see if she has any increase in depression /anxiety [id number] Stephan Bryson DO [facility] [address] [facility] [address], [address] [facility] [place] [address] 12/10/2019 11:56:31 12/10/2019 13:35:30 Hypertensive disorder 23813509 I10 bp is now perfect feels well no cp discussed the need to keep bp down will cont 80 mg of prop and will plan to see you again this summer Dyspnea 834083145 R06.00 we will need to order a PFT in the near future as she has been having some issues with dyspnea will need to wait until the pandemic subsides will Multiple sclerosis 68092 007 G35 has had worsening of her symptoms tony fatigue etc relates not sure how well she is sleeping has noted that she has had a prob with optic neuritis and is having increasing trouble with her vision tony peripheral vison becomes much worse and is finding it very difficult to drive relates that her optho neurol is worried about her driving and has noted corneal ulcer,blep harititis and keratosis etc pt relates that she has noted that her work is suffering now and that she can no longer do it effectivel ynote her pain can be quite severewe need to get the notes from the two specialist s also her voice has become hoarse ? is related to MS still taking tiny dose of gabapentin for neuropathy as discussed but needs further speech eval also has noted areas of lipodystro phy located along the areas of prior injection sites. these areas are [id number] Stephan Bryson DO [facility] [address] [facility] [address],[place] [address] 12/25/2019 10:43:14 12/25/2019 11:34:47 Hypertensive disorder 88418814 I10 bp is now ook she feels well no cp discussed the need to keep bp down will cont 80 mg of prop and will plan to see again this summer Multiple sclerosis G35 has had worsening of her symptoms tony fatigue etc relates not sure how well she is sleeping has noted that she has had a prob with optic neuritis and is having increasing trouble with her vision tony peripheral vison becomes much worse and is finding it very difficult to drive relates that her optho neurol is worried about her driving and has noted corneal ulcer,blep harititis and keratosis etc pt relates that she has noted that her work is suffering now and that she can no longer do it effectivel ynote her pain can be quite severewe need to get the notes from the two specialist s also her voice has become hoarse ? is related to MS or even the GABAPENTIN ? still taking tiny dose of gabapentin for neuropathy and this is DISCONTINU Asif but needs further speech alec also has noted areas of lipodystro phy located along the areas of prior injection sites. these areas are Anxiety 14326081 F41.9 Has had increased anx due to life stress Will try 1/2 bup dose and recheck on f/u [id number] Stephan Bryson, [facility] [address] [facility],[place] [address] 03/18/2020 11:25:29 03/18/2020 11:58:57 Hypertensive disorder 21375083 I10 bp is now ook she feels well no cp discussed the need to keep bp down will change her propranolo l due to her nausea and try atenolol at 50 Knee pain 56751849 M25.5 69 arterial procedures are negative and look excellent so no evid of stenosis and claudicati on will need to xray both knees and will see what poss djd Multiple sclerosis G35 we will need to do lab as she is due as her tx plan has her taking interferon has had worsening of her symptoms tony fatigue etc relates not sure how well she is sleeping has noted that she has had a prob with optic neuritis and is having increasing trouble with her vision tony peripheral vison becomes much worse and is finding it very difficult to drive relates that her optho neurol is worried about her driving and has noted corneal ulcer,blep harititis and keratosis etc pt relates that she has noted that her work is suffering now and that she can no longer do it effectivel ynote her pain can be quite severewe need to get the notes from the two specialist s also her voice has become hoarse ? is related to MS or even the GABAPENTIN ? still taking tiny dose of gabapentin for neuropathy and this is DISCONTINU Asif but needs further speech alec also has noted areas of lipodystro phy located along the areas of prior injection sites. these areas are [id number] DO [facility] [address] [facility] [address],[place] [address] 04/14/2020 14:31:45 04/14/2020 15:10:33 Multiple sclerosis 84271546 G35 PRIOR NOTE: has had worsening of her symptoms tony fatigue etc relates not sure how well she is sleeping has noted that she has had a prob with optic neuritis and is having increasing trouble with her vision tony peripheral vison becomes much worse and is finding it very difficult to drive relates that her optho neurol is worried about her driving and has noted corneal ulcer,blep harititis and keratosis etc pt relates that she has noted that her work is suffering now and that she can no longer do it effectivel ynote her pain can be quite severewe need to get the notes from the two specialist s also her voice has become hoarse ? is related to MS or even the GABAPENTIN ? CURRENTLY: denies any major probs except her knees have bothered Hypertensive disorder 38 397333 I10 bp is much improved with a drop in her wgt with the keto diet Bilateral knee pain 1187 021613 1703957 M25.561 pain has worsened will have her get some xrays [id number] DO [facility] [address] [facility] [address],[place] [facility] [place] [address] 05/19/2020 14:08:56 05/19/2020 15:11:14 Left sided abdominal pain 549329349 R10.9 patient had scan 6 years ago and found ileum/jeju num to be inflamed still have left sided abdominal pain which mimics when she had the scan will rescan Active or passive immunization 226174565 Z23 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 Cholelithi asis without obstruction 16470968 K80.20 wants to try diet modificati on first and see an improvemen t will monitor her symptoms [id number] Stephan Bryson, [facility] [address] [facility] [address],[place] [address] 08/04/2020 10:54:54 08/04/2020 12:09:01 Hypertensive disorder 73246765 I10 bp is much improved but she is leary to change her med doesnt want to because she is afraid but wants to bc she is losing hair Multiple sclerosis 10769 007 G35 PRIOR NOTE: has had worsening of her symptoms tony fatigue etc relates not sure how well she is sleeping has noted that she has had a prob with optic neuritis and is having increasing trouble with her vision tony peripheral vison becomes much worse and is finding it very difficult to drive relates that her optho neurol is worried about her driving and has noted corneal ulcer,blep harititis and keratosis etc pt relates that she has noted that her work is suffering now and that she can no longer do it effectivel ynote her pain can be quite severewe need to get the notes from the two specialist s also her voice has become hoarse ? is related to MS or even the GABAPENTIN ? CURRENTLY: denies any major probs except her knees have bothered Exposure t o SARS-CoV-2 498228914 Z20.828 GIVEN her illness last sep and her ongoing need for immune therapy for MS she would be good to know her ab status [id number] Stephan Bryson, [facility] [address] [facility] [address],[place] [address] 09/16/2020 10:51:08 09/16/2020 11:42:20 Hypertensive disorder 22183624 I10 bp is much improved but she is leary to change her med doesnt want to because she is afraid but wants to bc she is losing hair Multiple sclerosis 78974 007 G35 currently is doing about the same she is on rebif treatment and is on a very low dose due to side effects relates is not able to take daily interferon taken and she still needs flu vac noted having a very nasty darrick lower leg neuropathy which is a burning discomfort usually just the fee but now is having an issue with the lower legs as well PRIOR NOTE: has had worsening of her symptoms tony fatigue etc relates not sure how well she is sleeping has noted that she has had a prob with optic neuritis and is having increasing trouble with her vision tony peripheral vison becomes much worse and is finding it very difficult to drive relates that her optho neurol is worried about her driving and has noted corneal ulcer,blep harititis and keratosis etc pt relates that she has noted that her work is suffering now and that she can no longer do it effectivel ynote her pain can be quite severewe need to get the notes from the two specialist s also her voice has become hoarse ? is related to MS or even the GABAPENTIN ? CURRENTLY: denies any major probs except her knees have bothered will send all lab to in [facility] clinic in [facility] Bilateral knee pain 1187 620154 8369943 M25.561 pain has worsened will have her get some xrays [id number] Stephan Bryson DO [facility] [address] [facility],[place] [facility] [place] [address] 11/06/2020 10:06:01 11/06/2020 11:07:06 Dysuria 22892876 R30.9 will fu after culture results Vitamin B1 2 deficiency (non anemic) 64489600 E53.8 will trial injection formulatio n will set up [place] visit Bilateral knee pain 1187 859863 7029769 M25.561 will fu in a month after surgery to discuss MRI Abdominal bloating 71955 9008 R14.0 will fu after surgery to see if symptoms are still present [id number] Stephan Bryson DO [facility] [address] [facility] [address],[place] [address] 12/22/2020 11:13:46 12/22/2020 17:51:56 Liver function tests outside reference range 842210822 R94.5 will repeat US with elevated Disorder o f vitamin B12 274461255 E53.8 will recheck her vitamin B12 level Hypertensive disorder 38 967065 I10 the patient BP is fine the patient checks at home, good readings at home Bilateral knee pain 1187 744957 8520171 M25.561 MRI will be placed, will schedule after her last vaccine [id number] Stephan Bryson [facility] [address] [facility],[place] [address] 02/15/2021 10:46:36 02/15/2021 11:21:20 Multiple sclerosis 02271450 G35 currently taking rebif (with albumin) still having symptoms of MS including fatigue, burning sensations along the neck, stiff legs seeing neuro Hypertensive disorder 38 731721 I10 the patient BP is excellent the patient checks at home, good readings at home Dysphagia 04661331 R13.1 2 stable Pruritic disorder 492762 002 L29.8 will trial hydroxyzin e Cyst of pancreas 5373156 0 K86.2 with abdominal bloating symptoms will fu with GI referral if necessary Abdominal bloating 02578 9008 R14.0 will fu after surgery to see if symptoms are still present [id number] Stephan Byrson [facility] [address] [facility], [place] [address] 03/22/2021 09:56:27 03/22/2021 13:30:46 Intermittent claudication 21883948 I73.9 stable Hypertensive disorder 38 091323 I10 the patient BP is excellent the patient checks at home, good readings at home Multiple sclerosis 76453 007 G35 currently taking rebif (with albumin) still having symptoms of MS including fatigue, burning sensations along the neck, stiff legs seeing neuro 04861 Stephan Bryson [facility] [address] [facility],[place] [address] 05/25/2021 13:19:25 05/25/2021 14:08:40 Hypertensive disorder 57812954 I10 will add lisinopril 5 mgdecrease propanolol by 1 tablet every one to two weeks discussed and wrote down instructio ns Multiple b enign melanocytic nevi 527785443 D22.9 referral, already all set [id number] Stephan Bryson [facility] [address] [facility],[place] [address] 06/18/2021 08:11:21 06/18/2021 10:09:29 Essential hypertension 92076142 I10 will keep monitoring her BP with just the lisinopril discussed alternativ e options if the lisinopril does not work well for her Insomnia 672312161 G47.0 9 will trial trazodone for sleep at 25 mg [id number] Stephan Bryson [facility] [address] [facility],[place] [facility] [place] [address] 09/27/2021 08:20:41 09/29/2021 10:52:12 Multiple sclerosis 47907376 G35 currently taking rebif (with albumin) still having symptoms of MS including fatigue, burning sensations along the neck, stiff legs seeing neuro Intermitte nt claudication 31541930 I73.9 stable Essential hypertension 36206007 I10 will switch off lisinopril to olmesartan Anxiety 47034588 F41.1 will switch bupropion and to fluvoxamin e Rosacea 884100596 L71.8 will set up with refill of metro gel [id number] Stephan Bryson [facility] [address] [facility],[place] [address] 12/07/2021 10:19:36 12/07/2021 12:34:08 Active or passive immunization 573151035 Z23 utd Adult heal th examination 652577013 Z00.01 del require colonoscop yneeds labneeds a neuro opthamolog istneeds PT for balance eval Screening for malignant neoplasm of colon 896190020 Z12.11 Multiple sclerosis 60561 007 G35 she will need referral to PT for balance eval Visual field defect 1218 4005 H53.40 needs neuro opth referral Female pat noam alopecia 2830319 L64.8 Hypertensive disorder 38 309859 I10 bp is much improved but she is leary to change her med doesnt want to because she is afraid but wants to bc she is losing hair [id number] LARRY ROSAS [facility] [address] [facility] [address],[place] [address] 04/29/2022 13:53:58 04/29/2022 16:36:32 Rosacea 844216615 L71.8 will set up with refill of metro gel Hypotensive episode 6776 3001 I95.2 possible combinatio n of his wellbutrin and supplement s is now controllin g her BP therefore her BP medication are too muchwill d/c themtake half a tablet if BP starts to increase again [id number] LARRY ROSAS [facility] [address] [facility] [address],[place] [address] 05/13/2022 11:10:03 05/13/2022 12:17:51 Hypotensive episode 42236088 I95.2 BP up again, but due to marijuana use Hypertensive disorder 38 989098 I10 will start if needed half her BP medication Panic attack 128141590 F 41.0 will f/u ativan refill, start on medication Palpitations 80777401 R0 0.2 will re set up with holter and add US echo Dysuria 82852579 R30.9 fu urine [id number] Stephan Bryson DO [facility] [address] [facility] [address],[place] [address] 07/06/2022 14:11:04 07/06/2022 14:54:02 Abdominal pain 87860390 R10.32 will fu with GI for colonoscop y > due to issue with cardiac clearancew ill also do cologuards ymptoms have resolved thoughwill keep appts Palpitations 53042191 R0 0.2 will re set up with holter and add US echo Superficia l punctate keratitis 63804712 H16.143 will restart on erythromyc in again Depressive disorder 3548 9007 F32.0 for both chronic pain [id number] Stephan Bryson DO [facility] [address] [facility] [address],[place] [facility] [place] [address] 08/09/2022 11:13:10 08/09/2022 12:14:01 Depressive disorder 89254738 F32.0 will add buspar to what she is taking with the bupropionl ow low dose due to side effects with many anxiety/de pression medication s Hypertensive disorder 38 277568 I10 will start if needed half her BP medication Osteoporosis 69305223 M8 1.0 getting bone density in august[place] ll need to set her up with endo based on results for options for pills or injections since she has a lot of medication s sensitivit ies due to use of steroids for her MS Multiple sclerosis 91743 007 G35 currently taking rebif (with albumin) still having symptoms of MS including fatigue, burning sensations along the neck, stiff legs seeing neuro Thyroid nodule 278920915 E04.1 [id number] [facility] [address] [facility],[place] [address] 09/12/2022 11:06:24 09/12/2022 12:46:30 Active or passive immunization 194041325 Z23 patient advised she needs to get flu shot & shingles Hyperparathyroidism 6699 9008 E21.0 can be related to low vitamin D, but patient levels were normal at last checkwould like to have her evaluated more extensivel y by endo with a possible biopsy Thyroid nodule 336933159 E04.1 will f/u another US in 6 mos Cyst of pancreas 5441344 0 K86.2 will f/u with US pancreas Multiple sclerosis 11648 007 G35 will f/u with recheck CMP Intolerant of cold 06311 000 R68.89 will check her levels for patient Multiple b enign melanocytic nevi 178981762 D22.39 will set up with derm 12507 [facility] [address] [facility],[place] [address] 10/12/2022 09:53:33 10/12/2022 14:14:01 Depressive disorder 19534767 F32.0 will add buspar to what she is taking with the bupropionl ow low dose due to side effects with many anxiety/de pression medication s Hyperparathyroidism 6699 9008 E21.0 can be related to low vitamin D, but patient levels were normal at last checkwould like to have her evaluated more extensivel y by endo with a possible biopsy Multiple sclerosis 94695 007 G35 will f/u with recheck CMP Screening for cardiovascular system disease 499315480 Z13.6 will set up Intolerant of cold 06514 000 R68.89 will check her levels for patient Menopause 989905194 N95. 1 will set up with hormone testing as wellpt curious about her estrogen levels due to the constant chills [id number] Stephan Bryson [facility] [address] [facility],[place] [address] 09/20/2023 09:03:41 09/20/2023 10:57:08 Hypertensive disorder 11105868 I10 recently took her bp and was 186/107 at her moms housebps are elevated she has been not as active due to her shouldersh e needs to restart her olmesartan 20 Hyperparathyroidism 6699 9008 E21.0 has been stable Peripheral vascular disease 272584196 I73.9 noted and is quiet Rupture of rotator cuff of left shoulder 7557451576 7907111 M75.102 going to see surgeon soon dr watkins [id number] Stephan Bryson [facility] [address] [facility] [address],[place] [address] 11/01/2023 10:24:51 11/01/2023 16:26:52 Hyperparathyroidism 68832907 E21.0 has been stable Hypertensive disorder 38 635938 I10 recently took her bp and was 186/107 at her moms housebps are elevated she has been not as active due to her shoulderwe will stop the hctz and start low dose amlodipine to tx and also to help with raynauds Multiple sclerosis 97967 007 G35 she will need referral to PT for balance eval Raynaud's phenomenon 266 881929 I73.00 hacve started amlodipine 2.5 and will increase dose as bismark [id number] Stephan Bryson [facility] [address] [facility] [address],[facility] [place] [address] 12/19/2023 14:18:06 12/19/2023 15:22:57 Hypertensive disorder 48483404 I10 she will change her diet cont the olmesartan Hyperparathyroidism 6699 9008 E21.0 has been stable sees dr turk gist Adult heal th examination 354447994 Z00.01 has been eval by endocrinal so the bp has been taking olmesart and amlodipine Multiple sclerosis 12893 007 G35 had been referral to PT for balance eval Intermitte nt palpitations 115084811 R00.2 will need holter monitor [id number] Stephan Bryson [facility] [address] [facility],[place] [facility] [place] [address] 06/28/2024 13:22:51 06/28/2024 14:05:38 Palpitations 01124595 R00.2 will re set up with holter and add US echo Depression screening 171 245513 Z13.31 SCREENING NEGATIVE Multiple sclerosis 06906 007 G35 stable check in the ER with her CMP Screening mammography 24 805531 Z12.31 will set up with routine MM Osteoporosis 73562420 M8 1.0 getting bone density in augustwi ll need to set her up with endo based on results for options for pills or injections since she has a lot of medication s sensitivit ies due to use of steroids for her MS Family his tory of Cardiovascular disease 168508447 Z82.49 agreed to calcium score Syncope 731046374 R55 set up with US echo Essential hypertension 75264437 I10 drop down to the 20 mg [id number] Stephan Bryson [facility] [address] [facility],[place] [facility] [place] [address] 07/24/2024 11:37:04 07/24/2024 15:41:43 Body mass index 25-29 - overweight 181611618 Z68.25 wanted to start on wegovycurr ent weight at home is 135 pounds Essential hypertension 49687696 I10 stable with check Screening for cardiovascular system disease 132100284 Z13.6 CTA and echo is unremarkab le Multiple sclerosis 96828 007 G35 stable check in the ER with her CMP Loss of hair 470870477 L 65.9 will start on topical solution [id number] Stephan Bryson [facility] [address] [facility],[place] [address] 08/19/2024 13:35:19 08/19/2024 14:19:02 Hypertensive disorder 50171077 I10 she will change her diet cont the olmesartan Essential hypertension 80735716 I10 discussed use of olmesartan and amlodipine will stop the olmesartan and increase the amlodipine to 5mg Multiple sclerosis 74465 007 G35 had been referral to PT for balance eval Loss of hair 084309751 L 65.9 will provide with prior solution [id number] Stephan Bryson [facility] [address] [facility],[place] [address] 11/26/2024 13:18:30 11/26/2024 14:01:27 Adult health examination 486490946 Z00.01 has been eval by endocrinal so the bp has been taking olmesart and amlodipine Screening for malignant neoplasm of colon 225407888 Z12.11 Screening for osteoporosis 775330387 Z13.820 is utd Screening mammography 24 401772 Z12.31 is utd Hypertensive disorder 38 980734 I10 she will change her diet cont the olmesartan Hyperparathyroidism 6699 9008 E21.0 has been stable sees dr turk gist Loss of hair 886794079 L 65.9 will provide with prior solution Essential hypertension 39884435 I10 discussed use of olmesartan and amlodipine will stop the olmesartan and increase the amlodipine to 5mg Female pat tern alopecia 6524169 L64.8 Raynaud's phenomenon 266 038433 I73.00 cont with olmesart Thyroid nodule 680226183 E04.1 Cyst of pancreas 8891235 0 K86.2 407148 Stephan Bryson [facility] [address] [facility],[place] [address] 07/02/2025 13:37:47 07/02/2025 14:20:10 Depression screening 898794147 Z13.31 neg Essential hypertension 39472869 I10 switch to clonifine Female pat tern alopecia 4249416 L64.8 Hyperparathyroidism 6699 9008 E21.0 has been stable sees dr turk gist Osteoporosis 03032528 M8 1.0 BMD is stable and shows onset of osteoporos is [id number] Stephan Bryson [facility] [address] [facility],[place] [address] 08/15/2025 13:45:46 08/15/2025 14:40:38 Essential hypertension 73867289 I10 switch to clonidine Dysuria 87875889 R30.9 noted despite 7 days of cefpodoxim e Depression screening 171 734773 Z13.31 neg Pyelonephritis 25783033 N12 9853172030 still having symptoms and still having some dysuria although not as bad Hematuria of undiagnosed cause 345135200 N02.9 66701285 Hyperparathyroidism 6699 9008 E21.0 has been stable sees dr reddyoo gist Multinodular goiter 2375 43070 E04.2 635519 see refferal Health Concerns Section Related Observation LastModified by Organization Detai ls LastModified Time None Recorded Concern Status LastModified by Organization Details LastModified Time None Recorded Advance Directives Directive None Recorded Payers Insurance Date Sequence Insurance Name Policy Number Policy Mckinney Covered Member ID Mckinney Member ID Guarantor Name 08/12/2025 2 [place] [facility] Betty Anderson Alan [id number] Betty Headleyisle 08/12/2025 1 [place] [facility] [place] [id number] Betty Headleyisle [id number] Betty Headleyisle 08/12/2025 1 [place] [facility] Betty Anderson Alan [id number] Betty Anderson Alan 08/12/2025 2 [place] PRIOR TO 2022 - [facility] (MEDICAID) Betty Anderson Alan [id number] Betty Anderson Alan 08/12/2025 1 [place]MEDICARE REPLACEMENT PPO) [id number] Betty Headleyisle [id number] Betty Phillips Notes Date Note Type Note Provider Name and Address Organization Details Recorded Time 4 text/htm l ROS as noted in the HPI CTA results: the patient calcium score results were 74 which is excellent resultsno significantecho was great, EF was great HTN: today in the office the patient BP is 132/86 L arm sitting the patient is doing well on the BP medication with no side effects and no adjustment of their medications needed today at the appointment well-controlled on medication denies chest pain, sob, ankle swelling, orthopnea, palpitations MS: needs new referral from PCP for neuro-opthomologist LARRY ROSAS [address] [place] [address], [phone], [facility] 07/24/2024 12:23:47 4 text/htm l ROS as noted in the HPI here for rechk and is doing ok overallstop the MS meds since early ly diff noticed is she is getting up in am with an odd gaitshe does feel much better mentally Stephan Bryson, DO [address] [facility], [place], [address], [facility] 08/19/2024 14:18:30 5 text/htm l Medicare Annual Wellness VisitReported by PatientSocial/Behavioral HistoryFor diet and nutrition, patient reportshealthy diet. For fracture risk, patient reportsno history of fractures,no recent explained fracture,no sudden unexplained fractures, andno previous musculoskeletal injuries. For physical activity, patient reportsexercises on a regular basis,recent increase in physical activity, andgood physical condition.Mental Status:For depression risk, patient reportsnever feels sad, empty, or tearful,no loss of interest in activities,no significant changes in weight,no sleep disturbances or insomnia,no agitation,no loss of energy,no feelings of worthlessness or guilt,no thoughts of suicide,no history of depression, andno history of mood disorders. For orientation, patient reportsno disorientation to time,no disorientation to date, andno disorientation to place. For concentration and memory, patient reportsno decreased concentrating ability,no memory lapses or loss, anddoes not forget words. For speech/motor difficulties, patient reportsno speech difficulties,no difficulty expressing formulated concepts,no difficulty with fine manipulative tasks,no difficulty writing/copying,no slowed reaction time, anddoes not knock things over when trying to pick them up.Functional AbilityFor hearing, patient reportsno loss of hearing. For vision, patient reportsno vision problems. For activities of daily living, patient reportsable to bathe with limited or no assistance,able to contol urination and bowels,able to dress with limited or no assistance,able to feed self with limited or no assistance,able to get out of chair or bed with limited or no assistance,able to groom with limited or no assistance, andable to toilet with limited or no assistance. For instrumental activities of daily living, patient reportsable to do house work with limited or no assistance,able to grocery shop with limited or no assistance,able to manage medications with limited or no assistance,able to manage money with limited or no assistance,able to prepare meals with limited or no assistance, andable to use the phone with limited or no assistance. For falls risk assessment, patient reportsno frequent falls while walking,no fall in the past year,no fall since last visit, andno dizziness/vertigo. For home safety, patient reportsno unsafe daniel hazzards,no unsafe stairs,no unsafe gas appliances,working smoke/co detectors,wears protective head gear for biking/high velocity,use of seatbelts,practicing 'safer sex',no vision or hearing loss while driving,no fire arms,has hand bars in the bathroom/shower, andgood lighting in the home.ROS as noted in the HPI as noted doing ok overall but has had trouble with the Stephan BrysonDO [address] [place] [address], [phone], [facility] 11/26/2024 13:56:55 5 text/htm l Care Management - HypertensionReported by PatientIFor self care, patient reportsnot under emotional stress. For severity, patient reportssymptoms are improvinganddoes not interfere with daily activities. For associated symptoms, patient reportsno dizziness,no lightheadedness,no chest pain,no shortness of breath,no palpitations,no edema,no calf muscle cramps,no blurred vision,no confusion,no headaches, andno fatigue.ROS as noted in the HPI here for rechk has gained wgt with olmesartfrustrated wishes change Stephan RobledoBarbie Bryson DO [address] [place] [address], [phone], [facility] Internal Medicine 07/02/2025 14:13:12 5 text/htm l Care Management - HypertensionReported by PatientIFor self care, patient reportsnot under emotional stress. For severity, patient reportssymptoms are improvinganddoes not interfere with daily activities. For associated symptoms, patient reportsno dizziness,no lightheadedness,no chest pain,no shortness of breath,no palpitations,no edema,no calf muscle cramps,no blurred vision,no confusion,no headaches, andno fatigue.ROS as noted in the HPI here for rechk has gained wgt with olmesartfrustrated wishes change was seen in er for pywlonephritis right noted via ct scan but only given 7 days of cefpodoxime Stephan Bryson, DO [address] [facility], [place], [phone], [facility] 08/15/2025 14:39:29 OBGyn Episode No OBEpisode recorded.
--- OUTSIDE RECORDS SUMMARY | 2025-08-15 15:02 | XMS_ITS | Encounter Summary ---
Author Organization [facility] Address [address] [place] [address] Phone Care Team Providers Care Railroad Emergency Services Manager Name Role Phone Bigda, Stephan A DO Primary Care Provider [phone] Bigda, Stephan A DO Unavailable Bigda, Stephan A DO Primary Care Provider [phone] Reason for Referral * MRI/CAT Scan - Closed Specialty Diagnoses / Procedures Referred By Contac t Referred To Contact Radiology Diagnoses Right knee pain, unspecified chronicity Left knee pain, unspecified chronicity Procedures MRI Knee (Left) Brook Landers PA Phone: tel: fax: Referral ID Status Reason Start Date Expiration Date Visits Re quested Visits Authorized [id number] Closed 02/12/2021 02/12/2022 1 1 * MRI/CAT Scan - Closed Specialty Diagnoses / Procedures Referred By Contning t Referred To Contact Radiology Diagnoses Right knee pain, unspecified chronicity Left knee pain, unspecified chronicity Procedures MRI Knee (Right) Brook Landers PA Phone: tel: fax: Referral ID Status Reason Start Date Expiration Date Visits Re quested Visits Authorized [id number] Closed 02/12/2021 02/12/2022 1 1 Encounter Details Date Type Department Care Team (Latest Contact Info) Description 12/22/2020 Transcribe Orders Virtual Department [address] [place] [address] Brook Landers PA [address] [facility] [place] [address] [place] [address] Right knee pain, unspecified chronicity (Primary Dx); Left knee pain, unspecified chronicity Social History Tobacco [...] as of this encounter Results * MRI KNEE WITHOUT CONTRAST (RIGHT) (02/24/2021 6:19 PM EDT) Anatomical Region Laterality Modality Knee Right Magnetic Resonan ce 02/24/2021 6:40 PM EDT Impressions 02/24/2021 6:50 PM EDT Small effusion deep to the superficial layers of the iliotibial band, perhaps reflecting friction syndrome. Mild apparent edema of the soft tissues overlying the patella and mild edema of the patella itself that may reflect recent trauma. This may be clinically correlated as well. Narrative 02/24/2021 6:50 PM EDT TECHNIQUE: MRI KNEE WITHOUT CONTRAST (RIGHT) COMPARISON: None FINDINGS: MEDIAL COMPARTMENT: No meniscal tear, cartilage defect, or subchondral bone marrow edema. LATERAL COMPARTMENT: No meniscal tear, cartilage defect, or subchondral bone marrow edema. PATELLOFEMORAL COMPARTMENT: There is mild edema in the soft tissues overlying the patella. The quadriceps femoris and patellar tendons are intact. There is mild edema in the suprapatellar space and mild signal elevation of the patella itself on fluid sensitive sequences that may reflect recent trauma and should be clinically correlated. TENDONS: Quadriceps, patellar and popliteus tendons intact. LIGAMENTS: Intact cruciate ligaments. Intact lateral and medial collateral ligaments. There is small amount of fluid noticed deep to the superficial layers of the iliotibial band similar to the contralateral side, though less pronounced, that may be clinically correlated and reflect iliotibial band friction syndrome. BONE: No fracture, osteonecrosis, or focal lesion. JOINT: No joint effusion, synovitis, or Bakers cyst. Procedure Note Tip Chen MD - 02/24/2021 TECHNIQUE: MRI KNEE WITHOUT CONTRAST (RIGHT) COMPARISON: None FINDINGS: MEDIAL COMPARTMENT: No meniscal tear, cartilage defect, or subchondralbone marrow edema. LATERAL COMPARTMENT: No meniscal tear, cartilage defect, or subchondralbone marrow edema. PATELLOFEMORAL COMPARTMENT: There is mild edema in the soft tissuesoverlying the patella. The quadriceps femoris and patellar tendons areintact. There is mild edema in the suprapatellar space and mild signalelevation of the patella itself on fluid sensitive sequences that mayreflect recent trauma and should be clinically correlated. TENDONS: Quadriceps, patellar and popliteus tendons intact. LIGAMENTS: Intact cruciate ligaments. Intact lateral and medial collateralligaments. There is small amount of fluid noticed deep to the superficiallayers of the iliotibial band similar to the contralateral side, thoughless pronounced, that may be clinically correlated and reflect iliotibialband friction syndrome. BONE: No fracture, osteonecrosis, or focal lesion. JOINT: No joint effusion, synovitis, or Bakers cyst. IMPRESSION: Small effusion deep to the superficial layers of the iliotibial band,perhaps reflecting friction syndrome. Mild apparent edema of the softtissues overlying the patella and mild edema of the patella itself thatmay reflect recent trauma. This may be clinically correlated as well. us Brook JUAREZ IMG MR EXTREMITY Final Resu lt * MRI KNEE WITHOUT CONTRAST (LEFT) (02/24/2021 5:55 PM EDT) Anatomical Region Laterality Modality Knee Left Magnetic Resonan ce 02/24/2021 6:16 PM EDT Impressions 02/24/2021 6:43 PM EDT 1. Effusion deep to the superficial layers of the iliotibial band. This should be clinically correlated and may reflect iliotibial band friction syndrome if chronic or be posttraumatic in the setting of acute trauma. 2. Small suprapatellar effusion. Narrative 02/24/2021 6:43 PM EDT TECHNIQUE: MRI KNEE WITHOUT CONTRAST (LEFT) COMPARISON: None FINDINGS: MEDIAL COMPARTMENT: No meniscal tear, cartilage defect, or subchondral bone marrow edema. LATERAL COMPARTMENT: No meniscal tear, cartilage defect with some chondral bone marrow edema. PATELLOFEMORAL COMPARTMENT: No cartilage defect or subchondral bone marrow edema. Small amount of fluid is noticed in the medial inferior aspect of the patellofemoral joint. There is a small suprapatellar effusion. TENDONS: Quadriceps, patellar and popliteus tendons intact. LIGAMENTS: Fluid is noticed between the iliotibial band and lateral femoral metaphysis and lateral femoral condyle which may reflect iliotibial band friction syndrome or posttraumatic change based on the patient's history. Partial tear of the deep fibers is possible. BONE: No fracture, osteonecrosis, or focal lesion. JOINT: No joint effusion, synovitis, or Bakers cyst. Procedure Note Tip Chen MD - 02/24/2021 TECHNIQUE: MRI KNEE WITHOUT CONTRAST (LEFT) COMPARISON: None FINDINGS: MEDIAL COMPARTMENT: No meniscal tear, cartilage defect, or subchondralbone marrow edema. LATERAL COMPARTMENT: No meniscal tear, cartilage defect with some chondralbone marrow edema. PATELLOFEMORAL COMPARTMENT: No cartilage defect or subchondral bone marrowedema. Small amount of fluid is noticed in the medial inferior aspect ofthe patellofemoral joint. There is a small suprapatellar effusion. TENDONS: Quadriceps, patellar and popliteus tendons intact. LIGAMENTS: Fluid is noticed between the iliotibial band and lateralfemoral metaphysis and lateral femoral condyle which may reflectiliotibial band friction syndrome or posttraumatic change based on thepatient's history. Partial tear of the deep fibers is possible. BONE: No fracture, osteonecrosis, or focal lesion. JOINT: No joint effusion, synovitis, or Bakers cyst. IMPRESSION: 1. Effusion deep to the superficial layers of the iliotibial band. Thisshould be clinically correlated and may reflect iliotibial band frictionsyndrome if chronic or be posttraumatic in the setting of acute trauma. 2. Small suprapatellar effusion. Brook JUAREZ IMG MR EXTREMITY Final Resu lt documented in this encounter Visit Diagnoses Diagnosis Right knee pain, unspecified chronicity- Primary Left knee pain, unspecified chronicity Right knee pain, unspecified chronicity Left knee pain, unspecified chronicity Right knee pain, unspecified chronicity Left knee pain, unspecified chronicity documented in this encounter Care Teams Railroad Emergency Services Manager Relationship Specialty Start Date End Date Stephan Day DO [email or web address] PCP - General Internal Medicine 10/24/17 03/21/21 Stephan Day DO [email or web address] PCP - General Internal Medicine 03/22/21 Stephan Day DO [address] [place] [address] [email or web address] Insurance Assigned Provider 01/01/20 03/05/22 documented as of this encounter Additional Source Comments The information contained in this document represents components of the legal health record. It is not the complete legal health record.[facility]
--- OUTSIDE RECORDS SUMMARY | 2025-08-15 15:02 | XMS_ITS | Encounter Summary ---
Author Organization [facility] Address [address] [place] [address] Phone Care Team Providers Care Ship Yard Electrical Person Name Role Phone Stephan Day Primary Care Provider [phone] Encounter Details Date Type Department Care Team (Late st Contact Info) Description 05/18/2023 Ancillary Orders [facility], X-Ray - [facility] [address] [place] [address] Schuyler Tate MD [address] [place] [address] Benign neoplasm of bone and articular cartilage, unspecified Social History Tobacco Use Types Packs/Day Years [...] as of this encounter Results * XR FINGER 2 OR MORE VIEWS (RIGHT) (06/09/2023 9:22 AM EDT) Anatomical Region Laterality Modality Hand Right Computed Radiogr aphy 06/10/2023 11:0 9 PM EDT Impressions 06/10/2023 11:11 PM EDT Soft tissue swelling with subtle mineralization along the ulnar aspect of the second PIP joint. This could reflect an inflammatory process such as gout or other crystalline arthropathy. Sequela of prior trauma is also a possibility. Narrative 06/10/2023 11:11 PM EDT XR FINGER 2 OR MORE VIEWS (RIGHT) COMPARISON: None FINDINGS: Soft tissue swelling is along the ulnar aspect of the second PIP joint with subtle mineralization best seen on the oblique finger view. No acute fracture or dislocation. Osseous alignment within normal limits. Mild joint space narrowing at the PIP joints. Procedure Note Liz Queen MD - 06/10/2023 XR FINGER 2 OR MORE VIEWS (RIGHT) COMPARISON: None FINDINGS: Soft tissue swelling is along the ulnar aspect of the second PIP jointwith subtle mineralization best seen on the oblique finger view. No acutefracture or dislocation. Osseous alignment within normal limits. Mildjoint space narrowing at the PIP joints. IMPRESSION: Soft tissue swelling with subtle mineralization along the ulnar aspect ofthe second PIP joint. This could reflect an inflammatory process such asgout or other crystalline arthropathy. Sequela of prior trauma is also apossibility. 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 PCP - General Internal Medicine 03/22/21 documented as of this encounter Additional Source Comments The information contained in this document represents components of the legal health record. It is not the complete legal health record.[facility]
--- OUTSIDE RECORDS SUMMARY | 2025-08-15 15:02 | XMS_ITS | Encounter Summary ---
Author Organization [facility] Address [address] [place] [address] Phone Care Team Providers Care Obstetrical Anesthesiologist Name Role Phone December PA-C Primary Care Provider Bigda, Stephan A DO Primary Care Provider [phone] Bigda, Stephan A DO Unavailable Bigda, Stephan A DO Unavailable Bigda, Stephan A DO Primary Care Provider [phone] Encounter Details Date Type Department Care Team (Late st Contact Info) Description 07/28/2017 Transcribe Orders [facility] [address] [place] [address] System, Provider Not In, [facility] [address] [address] Colicky LUQ abdominal pain (Primary Dx) Social History Tobacco [...] Procedure Name Priority Date/Time Associated Diagnosis Comments COMPREHENSIVE METABOLIC PANEL (CMP) Routine 07/28/2017 3:14 PM EDT Colicky LUQ abdominal pain CBC AND DIFFERENTIAL Routine 07/28/2017 3:14 PM EDT Colicky LUQ abdominal pain LIPASE Routine 07/28/2017 3:14 PM EDT Colicky LUQ abdominal pain AMYLASE Routine 07/28/2017 3:14 PM EDT Colicky LUQ abdominal pain documented in this encounter Results * Lipase (07/28/2017 3:14 PM EDT) LIPASE 28 16 - 63 U/L [facility] Blood 07/28/2017 3:14 PM EDT 07/28/2017 3:18 PM EDT us Provider Not In System PhD LAB BLOOD BKR ORDERAB LES Edited Result - Final Performing Organization Address [facility]/ZIP Co de Phone Number [address] [address] * Amylase (07/28/2017 3:14 PM EDT) AMYLASE 51 28 - 100 U/L [facility] Blood 07/28/2017 3:14 PM EDT 07/28/2017 3:18 PM EDT us Provider Not In System PhD LAB BLOOD BKR ORDERAB LES Edited Result - Final Performing Organization Address [facility]/ZIP Co de Phone Number [address] [address] * (ABNORMAL) CBC and differential (07/28/2017 3:14 PM EDT) WBC 9.13 3.40 - 11.20 K/uL [facility] RBC 4.90(H) 3.80 - 4.80 M/uL [facility] HGB 14.4 12.0 - 15.0 g/dL [facility] HCT 42.3 36.0 - 46.0 % [facility] PLT 249 130 - 400 K/uL [facility] MCV 86.3 79.0 - 98.0 fL [facility] MCH 29.4 27.0 - 34.8 pg [facility] MCHC 34.0 31.5 - 36.0 g/dL [facility] RDW 12.9 10.8 - 14.6 % [facility] MPV 10.3 9.4 - 12.4 fl [facility] NRBC 0.00 /100 WBCs [facility] ABSOLUTE NRBC 0.00 K/uL [facility] DIFF METHOD Auto [facility] NEUTS 68.8 45.30 - 77.70 % [facility] LYMPHS 21.0 12.30 - 39.70 % [facility] MONOS 9.1 4.10 - 12.80 % [facility] EOS 0.5 0 - 7.2 % [facility] BASOS 0.3 0 - 2.80 % [facility] Granulocytes, immature (%) 0.3 0.0 - 0.9 % [facility] ABSOLUTE NEUTS 6.27 1.40 - 7.70 K/uL [facility] ABSOLUTE LYMPHS 1.92 0.60 - 3.20 K/uL [facility] ABSOLUTE MONOS 0.83(H) 0.11 - 0.59 K/uL [facility] ABSOLUTE EOS 0.05 0.01 - 0.50 K/uL [facility] ABSOLUTE BASOS 0.03 0.00 - 0.08 K/uL [facility] Granulocytes, immature 0.03 0.00 - 0.05 K/uL [facility] Blood 07/28/2017 3:14 PM EDT 07/28/2017 3:18 PM EDT us Provider Not In System PhD LAB BLOOD BKR ORDERAB LES Edited Result - Final [address] [address] * (ABNORMAL) Comprehensive metabolic panel (07/28/2017 3:14 PM EDT) SODIUM 136 133 - 146 mmol/L [facility] POTASSIUM 4.0 3.3 - 5.1 mmol/L [facility] CHLORIDE 95(L) 96 - 108 mmol/L [facility] CO2 28 21 - 35 mmol/L [facility] BUN 15 6 - 19 mg/dL [facility] CREATININE 0.60 0.5 - 1.5 mg/dL [facility] GLUCOSE 126(H) 70 - 99 mg/dL [facility] ALBUMIN 4.6 3.9 - 4.8 g/dL [facility] TOTAL PROTEIN 7.3 6.5 - 8.0 g/dL [facility] CALCIUM 9.9 8.4 - 10.3 mg/dL [facility] ALKALINE PHOSPHATASE 93 39 - 117 U/L [facility] TOTAL BILIRUBIN 0.4 0 - 1.2 mg/dL [facility] AST 16 0 - 37 U/L [facility] ALT 18 0 - 40 U/L [facility] GLOBULIN 2.7 1 - 4.8 g/dL [facility] EGFR >60 >60 mL/min/1.7 3m2 [facility] Comment:Abnormal if <60. If patient is -[place], multiply the result by 1.21. ANION GAP 17 10 - 20 mmol/L [facility] Blood 07/28/2017 3:14 PM EDT 07/28/2017 3:18 PM EDT us Provider Not In System PhD LAB BLOOD BKR ORDERAB LES Edited Result - Final Performing Organization Address City/State/[facility] Co de Phone Number [facility] [address] [place] [address] documented in this encounter Visit Diagnoses Diagnosis Colicky LUQ abdominal pain- Primary documented in this encounter Care Teams Obstetrical Anesthesiologist Relationship Specialty Start Date End Date December, SERGO [address] [place] [address] PCP - General Unknown Provider Specialty 07/28/17 10/23/17 Stephan Day DO [address] [place] [address] [email or web address] PCP - General Internal Medicine 10/24/17 03/21/21 Stephan Day DO [address] [place] [address] [email or web address] PCP - General Internal Medicine 03/22/21 Stephan Day DO [address] [place] [address] Insurance Assigned Provider 01/26/19 11/28/19 Stephan Day DO [address] [place] [address] Insurance Assigned Provider 01/01/20 03/05/22 documented as of this encounter Additional Source Comments The information contained in this document represents components of the legal health record. It is not the complete legal health record.[facility]
--- OUTSIDE RECORDS SUMMARY | 2025-08-15 15:02 | XMS_ITS | Encounter Summary ---
Author Organization [facility] Address [address] [place] [address] [place] [address] Phone Care Team Providers Care Risk Compliance Analyst Name Role Phone Bigcarli, Stephan A DO Primary Care Provider [phone] Bigda, Stephan A DO Unavailable Bigda, Stephan A DO Primary Care Provider [phone] Encounter Details Date Type Department Care Team (Latest Contact Info) Description 12/22/2020 Transcribe Orders Virtual Department [address] [place] [address] Brook Landers PA [address] [place] [address] [place] [address] Abnormal LFTs (Primary Dx) Social History Tobacco Use Types [...] as of this encounter Results * US Abdomen Complete (03/09/2021 9:39 AM EDT) Anatomical Region Laterality Modality Abdomen Ultrasound 03/09/2021 9:45 AM EDT Impressions 03/09/2021 9:52 AM EDT Interval cholecystectomy. Progressive dilatation of the common bile duct from a previous maximum of 6 to now 11 mm without choledocholithiasis or intrahepatic biliary dilatation apparent. No hepatic finding identified to clearly account for abnormal liver function tests. Narrative 03/09/2021 9:52 AM EDT COMPARISON: MRI October 20, 2020. Right upper quadrant ultrasound October [address] May 27, 2020. Ultrasound abdomen May 03, 2020 TECHNIQUE: Ultrasonic examination of the abdomen was performed and multiple static images obtained. FINDINGS: Pancreas: Tail obscured. Small cyst suggested on the MRI is not seen. Visualized pancreas is unremarkable. Upper Aorta and IVC: No finding of concern detected in the visualized portions. Gallbladder and Biliary tree: Interval cholecystectomy. No intrahepatic dilatation. Common duct is prominent, however. Common bile duct measured at 11 mm. Liver: No focal abnormality detected. Borderline hepatic echogenicity without changes for marked steatosis. Spleen: Homogeneous and unenlarged. It is measured at 9 cm in length. Kidneys: No stone or solid mass is detected. There is no hydronephrosis. Both kidneys measured approximately 10 cm in length. Other: No ascites. Main portal vein is patent and hepatopetal. Procedure Note Gabriel Freeman MD - 03/09/2021 COMPARISON: MRI October 20, 2020. Right upper quadrant ultrasound 2020. CT May 27, 2020. Ultrasound abdomen May 03, 2020 TECHNIQUE: Ultrasonic examination of the abdomen was performed andmultiple static images obtained. FINDINGS: Pancreas: Tail obscured. Small cyst suggested on the MRI is not seen.Visualized pancreas is unremarkable. Upper Aorta and IVC: No finding of concern detected in the visualizedportions. Gallbladder and Biliary tree: Interval cholecystectomy. No intrahepaticdilatation. Common duct is prominent, however. Common bile duct measuredat 11 mm. Liver: No focal abnormality detected. Borderline hepatic echogenicitywithout changes for marked steatosis. Spleen: Homogeneous and unenlarged. It is measured at 9 cm in length. Kidneys: No stone or solid mass is detected. There is no hydronephrosis.Both kidneys measured approximately 10 cm in length. Other: No ascites. Main portal vein is patent and hepatopetal. IMPRESSION: Interval cholecystectomy. Progressive dilatation of the common bile ductfrom a previous maximum of 6 to now 11 mm without choledocholithiasis orintrahepatic biliary dilatation apparent. No hepatic finding identified toclearly account for abnormal liver function tests. us Brook JUAREZ IMG US ABDOMEN Final Resul t documented in this encounter Visit Diagnoses Diagnosis Abnormal LFTs- Primary Abnormal LFTs documented in this encounter Care Teams Risk Compliance Analyst Relationship Specialty Start Date End Date Stephan Day DO [email or web address] PCP - General Internal Medicine 10/24/17 03/21/21 Stephan Day DO PCP - General Internal Medicine 03/22/21 Stephan Day DO [address] [place] [address] Insurance Assigned Provider 01/01/20 03/05/22 documented as of this encounter Additional Source Comments The information contained in this document represents components of the legal health record. It is not the complete legal health record.[facility]
--- OUTSIDE RECORDS SUMMARY | 2025-08-15 15:02 | XMS_ITS | Encounter Summary ---
Author Organization [facility] Address [address] [place] [address] Phone Care Team Providers Care Automation And Controls Manager Name Role Phone December PA-Ghassan Primary Care Provider Bigda, Stephan A DO Primary Care Provider [phone] Bigda, Stephan A DO Unavailable Bigda, Stephan A DO Unavailable Bigda, Stephan A DO Primary Care Provider [phone] Encounter Details Date Type Department Care Team (Late st Contact Info) Description 07/28/2017 Ancillary Orders [facility], X-Ray - [facility] [address] [place] [address] Bigcarli, Stephan Robledo, DO [address] [facility] [place] [address] [place] [address] [email or web address] Pain Social History Tobacco Use Types Packs/Day Years [...] as of this encounter Visit Diagnoses Diagnosis Pain Generalized pain documented in this encounter Care Teams Automation And Controls Manager Relationship Specialty Start Date End Date SukhwinderDecember, SERGO [address] [place] [address] PCP - General Unknown Provider Specialty 07/28/17 10/23/17 Stephan Day DO [address] [place] [address] PCP - General Internal Medicine 10/24/17 03/21/21 Stephan Day DO [address] [place] [address] PCP - General Internal Medicine 03/22/21 Stephan Day DO [address] [place] [address] Insurance Assigned Provider 01/26/19 11/28/19 Stephan Day DO [address] [place] [address] Insurance Assigned Provider 01/01/20 03/05/22 documented as of this encounter Additional Source Comments The information contained in this document represents components of the legal health record. It is not the complete legal health record.[facility]
--- OUTSIDE RECORDS SUMMARY | 2025-08-15 15:02 | XMS_ITS | Encounter Summary ---
Author Organization [facility] Address [address] [place] [address] Phone Care Team Providers Care Supervisor Phosphorus Processing Name Role Phone Stephan Day DO Primary Care Provider [phone] Stephan Day DO Unavailable Stephan Day DO Primary Care Provider [phone] Encounter Details Date Type Department Care Team (Late st Contact Info) Description 08/25/2020 Procedure Pass [facility], [address] [address] Social History Tobacco Use Types Packs/Day Years [...] on filedocumented in this encounter Care Teams Supervisor Phosphorus Processing Relationship Specialty Start Date End Date Stephan Day DO PCP - General Internal Medicine 10/24/17 03/21/21 Stephan Day DO PCP - General Internal Medicine 03/22/21 Stephan Day DO [address] [place] [address] Insurance Assigned Provider 01/01/20 03/05/22 documented as of this encounter Additional Source Comments The information contained in this document represents components of the legal health record. It is not the complete legal health record.[facility]
--- OUTSIDE RECORDS SUMMARY | 2025-08-15 15:02 | XMS_ITS | Encounter Summary ---
Author Organization [facility] Address [address] [place] [address] [place] [address] Phone Care Team Providers Care Fixer Boarding Room Name Role Phone Stephan Day Primary Care Provider Encounter Details Date Type Department Care Team (Late st Contact Info) Description 06/09/2023 Ancillary Orders [facility], X-Ray - [facility] [address] [place] [address] Lorri Goel, HIGHWAY MAINTENANCE TECHNICIAN [address] [place] [phone] [email or web address] Pain Social History Tobacco Use Types Packs/Day [...] pain documented in this encounter Care Teams Fixer Boarding Room Relationship Specialty Start Date End Date Stephan Day DO [email or web address] PCP - General Internal Medicine 03/22/21 documented as of this encounter Additional Source Comments The information contained in this document represents components of the legal health record. It is not the complete legal health record.[facility]
--- OUTSIDE RECORDS SUMMARY | 2025-08-15 15:02 | XMS_ITS | Encounter Summary ---
Author Organization [facility] Address [address] [place] [address] Phone Care Team Providers Care Millinery Worker Name Role Phone Stephan Day DO Primary Care Provider [phone] Stephan Day DO Unavailable Stephan Day DO Primary Care Provider [phone] Encounter Details Date Type Department Care Team (Late st Contact Info) Description 11/23/2020 Procedure Pass OR Admitting Dept - Virtual Department [address] [place] [address] Social History Tobacco Use Types Packs/Day Years [...] on filedocumented in this encounter Care Teams Millinery Worker Relationship Specialty Start Date End Date Stephan Day DO PCP - General Internal Medicine 10/24/17 03/21/21 Stephan Day DO PCP - General Internal Medicine 03/22/21 Stephan Day DO [address] [place] [address] Insurance Assigned Provider 01/01/20 03/05/22 documented as of this encounter Additional Source Comments The information contained in this document represents components of the legal health record. It is not the complete legal health record.[facility]
--- OUTSIDE RECORDS SUMMARY | 2025-08-15 15:03 | XMS_ITS | Encounter Summary ---
Author Organization [facility] Address [address] [place] [address] Phone Care Team Providers Care Clerical Administrative Assistant Name Role Phone Stephan Day DO Primary Care Provider [phone] Stephan Day DO Unavailable Stephan Day DO Primary Care Provider [phone] Encounter Details Date Type Department Care Team (Late st Contact Info) Description 12/22/2020 Procedure Pass [facility], [address] [address] Social History Tobacco Use Types Packs/Day Years [...] on filedocumented in this encounter Care Teams Clerical Administrative Assistant Relationship Specialty Start Date End Date Stephan Day DO [email or web address] PCP - General Internal Medicine 10/24/17 03/21/21 Stephan Day DO [email or web address] PCP - General Internal Medicine 03/22/21 Stephan Day DO [address] [place] [address] [email or web address] Insurance Assigned Provider 01/01/20 03/05/22 documented as of this encounter Additional Source Comments The information contained in this document represents components of the legal health record. It is not the complete legal health record.[facility]
--- OUTSIDE RECORDS SUMMARY | 2025-08-15 15:03 | XMS_ITS | Encounter Summary ---
Author Organization [facility] Address [address] [place] [address] Phone Care Team Providers Care Publication Manager Name Role Phone Bigda, Stephan A DO Primary Care Provider [phone] Bigda, Stephan A DO Unavailable Bigda, Stephan A DO Unavailable Bigda, Stephan A DO Primary Care Provider [phone] Reason for Referral * MRI/CAT Scan - Closed Specialty Diagnoses / Procedures Referred By Contning t Referred To Contact Radiology Diagnoses MS (multiple sclerosis) Other amnesia Chronic fatigue Procedures MRI Cervical Spine Leslye Gonzales MD Phone: tel: fax: Referral ID Status Reason Start Date Expiration Date Visits Re quested Visits Authorized [id number] Closed 06/12/2018 08/10/2018 1 1 * MRI/CAT Scan - Closed Specialty Diagnoses / Procedures Referred By Contac t Referred To Contact Radiology Diagnoses MS (multiple sclerosis) Other amnesia Chronic fatigue Procedures MRI Brain Leslye Gonzales MD Phone: tel: fax: Referral ID Status Reason Start Date Expiration Date Visits Re quested Visits Authorized [id number] Closed 06/12/2018 08/10/2018 1 1 Encounter Details Date Type Department Care Team (Late st Contact Info) Description 06/12/2018 Ancillary Orders Virtual Department [address] [place] [address] Leslye Gonzales MD [address] [place] [address] MS (multiple sclerosis); Other amnesia; Chronic fatigue Social History Tobacco Use Types Packs/Day Years [...] as of this encounter Results * MRI CERVICAL SPINE (NEURO) FOCUS WITHOUT CONTRAST (07/02/2018 11:13 AM EDT) Anatomical Region Laterality Modality C-spine Magnetic Resonan ce 07/02/2018 10:5 6 AM EDT Impressions 07/02/2018 11:20 AM EDT 1. Stable cervical spinal cord demyelinating lesions. 2. New small central disc protrusions at C5-6 and T1-2. No cord compression, canal or neural foraminal stenosis. POS - [id number] Narrative 07/02/2018 11:20 AM EDT COMPARISON: 03/15/2014. TECHNIQUE: Exam performed on a 1.5 Yari high-field MRI scanner. Sagittal T1, T2 and STIR, axial T2* gradient echo and 3-D bright fluid sequences were obtained. MRI CERVICAL SPINE FINDINGS: Normal lordosis. Stable anterior endplate spurring. No compression deformities or disc space narrowing. Stable minimal anterolisthesis of C7 on T1. Bone marrow signal is within normal limits. No cerebellar tonsil herniation. Stable T2 hyperintense cord signal at C2-3 with mild expansion and T2 hyperintense cord signal from C4-5 to C5-6. No new cord lesions. Soft tissues are normal. C2-3: Stable mild left facet arthropathy. C3-4: Normal. C4-5: Stable disc bulging. C5-6: New small central disc protrusion. Stable disc bulging. C6-7: Stable disc bulging. C7-T1: Normal. T1-2: New small central disc protrusion. Procedure Note Jesi Moreira MD - 07/02/2018 COMPARISON: 03/15/2014. TECHNIQUE: Exam performed on a 1.5 Yari high-field MRI scanner. SagittalT1, T2 and STIR, axial T2* gradient echo and 3-D bright fluid sequenceswere obtained. MRI CERVICAL SPINE FINDINGS: Normal lordosis. Stable anterior endplate spurring. No compressiondeformities or disc space narrowing. Stable minimal anterolisthesis of C7on T1. Bone marrow signal is within normal limits. No cerebellar tonsilherniation. Stable T2 hyperintense cord signal at C2-3 with mildexpansion and T2 hyperintense cord signal from C4-5 to C5-6. No new cordlesions. Soft tissues are normal. C2-3: Stable mild left facet arthropathy. C3-4: Normal. C4-5: Stable disc bulging. C5-6: New small central disc protrusion. Stable disc bulging. C6-7: Stable disc bulging. C7-T1: Normal. T1-2: New small central disc protrusion. IMPRESSION: 1. Stable cervical spinal cord demyelinating lesions. 2. New small central disc protrusions at C5-6 and T1-2. No cordcompression, canal or neural foraminal stenosis. POS - [id number] Leslye Gonzales MD IMG MR XSPECIALTY Final Resul t * MRI BRAIN WITHOUT CONTRAST (07/02/2018 10:56 AM EDT) Anatomical Region Laterality Modality Head Magnetic Resonan ce 07/02/2018 10:4 3 AM EDT Impressions 07/02/2018 10:58 AM EDT Stable demyelinating disease. POS [id number] Narrative 07/02/2018 10:58 AM EDT COMPARISON: 03/07/2015. TECHNIQUE: Exam performed on a 1.5 Yari high-field MRI scanner. Axial T1, GRE, T2, FLAIR and diffusion-weighted imaging with ADC map, sagittal T1 and T2 FLAIR sequences were obtained. MRI BRAIN FINDINGS: No cerebellar tonsil herniation. Pituitary gland is not enlarged. No restricted diffusion to indicate acute or subacute ischemia. No intraparenchymal susceptibility artifact to indicate hemorrhage. Stable moderate generalized cerebral atrophy. Stable multiple nodular T2 hyperintense periventricular white matter lesions. No new lesions. There is no mass, midline shift, mass-effect or extra-axial fluid collections. No hydrocephalus. Normal vascular flow-voids. Orbits are normal. Mastoids and paranasal sinuses are clear. Soft tissue and bone marrow are within normal limits. Susceptibility artifact at the vertex due to the patient's hair spray. Procedure Note Jesi Moreira MD - 07/02/2018 COMPARISON: 03/07/2015. TECHNIQUE: Exam performed on a 1.5 Yari high-field MRI scanner. AxialT1, GRE, T2, FLAIR and diffusion-weighted imaging with ADC map, sagittalT1 and T2 FLAIR sequences were obtained. MRI BRAIN FINDINGS: No cerebellar tonsil herniation. Pituitary gland is not enlarged. Norestricted diffusion to indicate acute or subacute ischemia. Nointraparenchymal susceptibility artifact to indicate hemorrhage. Stablemoderate generalized cerebral atrophy. Stable multiple nodular [id number] periventricular white matter lesions. No new lesions. Thereis no mass, midline shift, mass-effect or extra-axial fluid collections.No hydrocephalus. Normal vascular flow-voids. Orbits are normal.Mastoids and paranasal sinuses are clear. Soft tissue and bone marrow arewithin normal limits. Susceptibility artifact at the vertex due to thepatient's hair spray. IMPRESSION: Stable demyelinating disease. POS [id number] Leslye Gonzales MD IMG MR HEAD/NECK Final Result documented in this encounter Visit Diagnoses Diagnosis MS (multiple sclerosis) Multiple sclerosis Other amnesia Chronic fatigue Other malaise and fatigue MS (multiple sclerosis) Multiple sclerosis Other amnesia Chronic fatigue Other malaise and fatigue MS (multiple sclerosis) Multiple sclerosis Other amnesia Chronic fatigue Other malaise and fatigue documented in this encounter Care Teams Publication Manager Relationship Specialty Start Date End Date Stephan Day DO [email or web address] PCP - General Internal Medicine 10/24/17 03/21/21 Stephan Day DO [email or web address] PCP - General Internal Medicine 03/22/21 Stephan Day DO [address] [place] [address] [email or web address] Insurance Assigned Provider 01/26/19 11/28/19 Stephan Day DO [address] [place] [address] [email or web address] Insurance Assigned Provider 01/01/20 03/05/22 documented as of this encounter Additional Source Comments The information contained in this document represents components of the legal health record. It is not the complete legal health record.[facility]
--- OUTSIDE RECORDS SUMMARY | 2025-08-15 15:03 | XMS_ITS | Encounter Summary ---
Author Organization [facility] Address [address] [place] [address] [place] [address] Phone Care Team Providers Care Agriculture Engineer Name Role Phone Stephan Day DO Primary Care Provider [phone] Stephan Day DO Unavailable Stephan Day DO Primary Care Provider [phone] Encounter Details Date Type Department Care Team (Late st Contact Info) Description 03/09/2021 Procedure Pass [facility], [address] [address] Social History Tobacco Use Types Packs/Day Years [...] on filedocumented in this encounter Care Teams Agriculture Engineer Relationship Specialty Start Date End Date Stephan Day DO [email or web address] PCP - General Internal Medicine 10/24/17 03/21/21 Stephan Day DO [email or web address] PCP - General Internal Medicine 03/22/21 Stephan Day DO [address] [place] [address] [email or web address] Insurance Assigned Provider 01/01/20 03/05/22 documented as of this encounter Additional Source Comments The information contained in this document represents components of the legal health record. It is not the complete legal health record.[facility]
--- OUTSIDE RECORDS SUMMARY | 2025-08-15 15:03 | XMS_ITS | Encounter Summary ---
Author Organization [facility] Address [address] [place] [address] [address] [place] [address] Phone Care Team Providers Care Family Day Carer Name Role Phone Marleycarli, Stephan Robledo DO Primary Care Provider [phone] Bigda, Stephan Robledo DO Unavailable Marleyda, Stephan Meena DO Unavailable Bigda, Stephan A DO Primary Care Provider [phone] Encounter Details Date Type Department Care Team (Late st Contact Info) Description 06/01/2018 Ancillary Orders Virtual Department [address] [place] [address] Barb, Stephan Robledo, DO [address] [facility] [place] [address] [place] [address] [email or web address] Precordial chest pain Social History Tobacco Use Types Packs/Day Years [...] documented as of this encounter Results * NC Stress Result for Nuclear Stress Test (06/01/2018 12:34 PM EDT) Max BP Systolic 160 mmHg [facility] Max BP Diastolic 90 mmHg [facility] Max HR 139 BPM [facility] Resting HR 78 BPM [facility] Resting BP Systolic 120 mmHg [facility] Resting BP Diastolic 88 mmHg [facility] Peak METS 1.0 METS [facility] Peak HR 77 BPM [facility] Peak BP Systolic 120 mmHg [facility] Peak BP Diastolic 82 mmHg [facility] Anatomical Region Laterality Modality Heart Other 06/01/2018 11:3 4 AM EDT 06/01/2018 12:34 PM EDT Narrative 06/03/2018 9:18 AM EDT Response to Stress The patient exercised for minutes seconds, achieving 1.0 METS at peak exercise. Baseline blood pressure was 120/88 mmHg, and baseline heart rate was 78 bpm. Peak blood pressure was 120/82 mmHg. The patient achieved a peak heart rate of 77 bpm, which is% of their maximum predicted heart rate. Rate pressure product was 9240. Exercise Stress Test Report: PATIENT HAD EXERCISE TREADMILL STRESS TEST YESTERDAY, WHICH WAS POSITIVE FOR EKG CHANGES AND JAW PAIN. THEREFORE, TREADMILL NUCLEAR STRESS TEST COMPLETED TODAY. Reason for termination: fatigue Summary: Resting ECG: SR HR 67 BPM, baseline NSSTW Functional capacity: fair Heart rate response to exercise: appropriate Blood pressure response to exercise: baseline normotensive - appropriate response to exercise Chest pain: none at baseline Arrhythmias: none Conclusion: Patient exercised for 6:00 minutes on a standard Roland protocol achieving 86% MPHR and 7 METS. Test terminated due to fatigue. Summary: 1. EKG: Exaggeration of baseline ST-T wave abnormalities that are suggestive of ischemia. 2. Symptoms: Left sided jaw pain at peak exercise as well as some left-sided neck pain, less severe than yesterday's pain. This jaw pain resolved in recovery. 3. Exercise physiology: Normal heart rate and BP response to exercise. Max HR 139 BPM with normal HR recovery. Max BP 160/90 from baseline BP of 120/88. functional capacity for age noted 4. Arrhythmia: None Conclusion: Abnormal ETT. EKG changes suggestive of ischemia and L sided jaw and some L sided neck pain, less severe than yesterday. Vital signs at baseline at time of discharge from the lab. Nuclear images to follow under separate document. EKG reviewed with Dr. Brown. She will be seeing Dr. Brown on Monday06/04/18 at 1:40 pm. She has been instructed to take baby aspirin at this time. See yesterday's test for further details. Delicia Rios, [facility], [facility] . us Stephan Day DO CV NM CARDIAC Final Result documented in this encounter Visit Diagnoses Diagnosis Precordial chest pain Precordial pain Precordial chest pain Precordial pain documented in this encounter Care Teams Family Day Carer Relationship Specialty Start Date End Date Stephan Day DO PCP - General Internal Medicine 10/24/17 03/21/21 Stephan Day DO PCP - General Internal Medicine 03/22/21 Stephan Day DO [address] [place] [address] Insurance Assigned Provider 01/26/19 11/28/19 Stephan Day DO [address] [place] [address] Insurance Assigned Provider 01/01/20 03/05/22 documented as of this encounter Additional Source Comments The information contained in this document represents components of the legal health record. It is not the complete legal health record.[facility]
--- OUTSIDE RECORDS SUMMARY | 2025-08-15 15:03 | XMS_ITS | Encounter Summary ---
Author Organization [facility] Address [address] [place], [place] [address] [place] [address] Phone Care Team Providers Care Medical Billing Instructor Name Role Phone Stephan Day DO Primary Care Provider Stephan Day DO Unavailable Stephan Day DO Unavailable Stephan Day DO Primary Care Provider [phone] Reason for Referral * Outpatient Procedure - Closed Specialty Diagnoses / Procedures Referred By Stacey urrutia Referred To Contact Diagnoses Atypical chest pain Procedures Stress Test Exercise Stephan Day DO Phone: tel: fax: mailto:[email or web address] Referral ID Status Reason Start Date Expiration Date Visits Re quested Visits Authorized [id number] Closed 05/30/2018 05/30/2019 1 1 Encounter Details Date Type Department Care Team (Late st Contact Info) Description 05/30/2018 Ancillary Orders Virtual Department [address] [place] [address] Stephan Day DO [address] [facility] [address] [place], [place] [id number] [email or web address] Atypical chest pain Social History Tobacco Use Types [...] documented as of this encounter Results * Stress Test Exercise (05/31/2018 11:26 AM EDT) Max BP Systolic 180 mmHg [facility] Max BP Diastolic 110 mmHg [facility] Max HR 148 BPM [facility] Resting HR 90 BPM [facility] Resting BP Systolic 115 mmHg [facility] Resting BP Diastolic 82 mmHg [facility] Peak METS 7.0 METS [facility] Peak HR 146 BPM [facility] Peak BP Systolic 140 mmHg [facility] Peak BP Diastolic 80 mmHg [facility] Anatomical Region Laterality Modality Heart Other 05/31/2018 8:44 AM EDT 05/31/2018 9:55 AM EDT Narrative 06/11/2018 10:14 AM EDT Response to Stress The patient exercised for minutes seconds, achieving 7.0 METS at peak exercise. Baseline blood pressure was 115/82 mmHg, and baseline heart rate was 90 bpm. Peak blood pressure was 140/80 mmHg. The patient achieved a peak heart rate of 146 bpm, which is% of their maximum predicted heart rate. Rate pressure product was [address]. Exercise Stress Test Report: Reason for termination: EKG changes, L sided jaw pain Summary: Resting ECG: SR HR 85 BPM, baseline NSSTW Heart rate response to exercise: achieved target HR within 3 minutes Blood pressure response to exercise: baseline normotensive - hypertensive response to exercise Chest pain: none at baseline Arrhythmias: none Conclusion: Patient exercised for 4: 22 minutes on a standard Roland protocol achieving 91% MPHR and 7 METS. Test terminated due to EKG changes, left-sided jaw pain. Summary: 1. EKG: Exaggeration of baseline ST-T wave abnormalities that are suggestive of ischemia. 2. Symptoms: Left sided jaw pain at peak exercise as well as some left-sided neck pain. This jaw pain resolved within about 3 minutes into recovery, neck pain persisted longer but resolved prior to discharge from the lab. 3. Exercise physiology: Normal heart rate and hypertensive BP response to exercise. Max HR 148 bpm with normal HR recovery. Max BP 180/100 from baseline BP of 115/82. O2 sat 97% at peak exercise. 4. Arrhythmia: None Conclusion: Abnormal ETT. EKG changes suggestive of ischemia as well as left- sided jaw and neck pain at peak exercise. Vital signs at baseline at time of discharge from the lab. EKG reviewed with Dr. Brown. He recommends to have a cardiac consultation and an appointment has been set up in the [facility] office for Monday, June 04, [address] Brown. Dr. Reilly was available to come in and speak with the patient and he recommends that we also get a nuclear stress test as soon as possible prior to the consultation for further workup. She was also given a prescription for sublingual nitroglycerin tablets and instructed on how to use them. She is also recommended to take a baby aspirin daily and will do so. She also is having a cervical spine x-ray today at the hospital as an outpatient. Red flags were reviewed with her, and she indicates understanding and will go to the ER if needed. PCP office is closed today, however on-call physician was notified for orders since this stress test was ordered by PCP office. She is scheduled for a treadmill nuclear stress test tomorrow morning at [facility]. Delicia Rios NP, MPH . Stephan Day DO CV STRESS ORDERABLES Final Resul t documented in this encounter Visit Diagnoses Diagnosis Atypical chest pain Other chest pain Atypical chest pain Other chest pain documented in this encounter Care Teams Medical Billing Instructor Relationship Specialty Start Date End Date Stephan Day DO PCP - General Internal Medicine 10/24/17 03/21/21 Stephan Day DO PCP - General Internal Medicine 03/22/21 Stephan Day DO [address] [place] [address] Insurance Assigned Provider 01/26/19 11/28/19 Stephan Day DO [address] [place] [address] Insurance Assigned Provider 01/01/20 03/05/22 documented as of this encounter Additional Source Comments The information contained in this document represents components of the legal health record. It is not the complete legal health record.[facility]
--- OUTSIDE RECORDS SUMMARY | 2025-08-15 15:03 | XMS_ITS | Encounter Summary ---
Author Organization [facility] Address [address] [place], [place] [address] [place] [address] Phone Care Team Providers Care Adult Health Clinical Nurse Specialist Name Role Phone Barb, Stephan Robledo DO Primary Care Provider [phone] Bigda, Stephan Meena DO Unavailable Bigda, Stephan Meena DO Unavailable Bigda, Stephan A DO Primary Care Provider [phone] Encounter Details Date Type Department Care Team (Late st Contact Info) Description 02/15/2019 Transcribe Orders Virtual Department [address] [place] [address] Barb, Stephan Robledo, DO [address] [place] [address] Dysphagia, unspecified type (Primary Dx) Social History Tobacco Use Types [...] documented as of this encounter Results * FL (Speech) Video Swallow Study (03/04/2019 10:31 AM EDT) Anatomical Region Laterality Modality Radiographic Julissa ging 03/04/2019 12:5 8 PM EDT Impressions 03/05/2019 11:08 AM EDT Swallowing mechanism appears within normal limits. Possible esophageal dysmotility. This can be further assessed with a barium esophagram. Please refer to the speech pathologist's note for additional comments. FLUOROSCOPY TIME: 1 MIN. 52 SECONDS. 2852 IMAGES/FRAMES POS - [id number] Edited by: Katina Macario on 03/04/2019 1:25 PM Narrative 03/05/2019 11:08 AM EDT COMPARISON: None FINDINGS: Youth Associate lateral neck radiograph shows no abnormal thickening of the prevertebral soft tissues. A modified barium swallow was performed with speech therapy. Cinefluoroscopy was performed as the patient swallowed varying consistencies of barium coated food material including thin barium, puree, and cracker consistencies. A 13 mm barium tablet was also administered. Oral and pharyngeal phases of swallowing appear within normal limits. No laryngeal penetration or aspiration observed during the exam. The 13 mm barium tablet passed the gastroesophageal junction into the stomach. On the AP view of the esophagus after the patient swallowed thin barium, there was some stasis in the esophagus with proximal escape which could indicate esophageal dysmotility. Procedure Note Buddy Kolb MD - 03/05/2019 COMPARISON: None FINDINGS: Youth Associate lateral neck radiograph shows no abnormal thickening of theprevertebral soft tissues. A modified barium swallow was performed with speech therapy.Cinefluoroscopy was performed as the patient swallowed varyingconsistencies of barium coated food material including thin barium, puree,and cracker consistencies. A 13 mm barium tablet was also administered. Oral and pharyngeal phases of swallowing appear within normal limits. Nolaryngeal penetration or aspiration observed during the exam. The 13 mmbarium tablet passed the gastroesophageal junction into the stomach. Onthe AP view of the esophagus after the patient swallowed thin barium,there was some stasis in the esophagus with proximal escape which couldindicate esophageal dysmotility. IMPRESSION: Swallowing mechanism appears within normal limits. Possible esophagealdysmotility. This can be further assessed with a barium esophagram.Please refer to the speech pathologist's note for additional comments. FLUOROSCOPY TIME: 1 MIN. 52 SECONDS. 2852 IMAGES/FRAMES POS - [id number] Edited by: Katina Macario on 03/04/2019 1:25 PM us Stephan Day DO IMG FL EXAMS Final Result documented in this encounter Visit Diagnoses Diagnosis Dysphagia, unspecified type- Primary Dysphagia, unspecified type documented in this encounter Care Teams Adult Health Clinical Nurse Specialist Relationship Specialty Start Date End Date Stephan Day DO [email or web address] PCP - General Internal Medicine 10/24/17 03/21/21 Stephan Day DO PCP - General Internal Medicine 03/22/21 Stephan Day DO [address] [place] [address] Insurance Assigned Provider 01/26/19 11/28/19 Stephan Day DO [address] [place] [address] Insurance Assigned Provider 01/01/20 03/05/22 documented as of this encounter Additional Source Comments The information contained in this document represents components of the legal health record. It is not the complete legal health record.[facility]
--- OUTSIDE RECORDS SUMMARY | 2025-08-15 15:03 | XMS_ITS | Encounter Summary ---
Author Organization [facility] Address [address] [place], [place] [address] [place] [address] Phone Care Team Providers Care Casting House Worker Name Role Phone Stephan Day DO Primary Care Provider [phone] Stephan Day DO Unavailable Stephan Day DO Unavailable Stephan Day DO Primary Care Provider [phone] Reason for Referral * MRI/CAT Scan - Closed Specialty Diagnoses / Procedures Referred By Stacey urrutia Referred To Contact Radiology Diagnoses Precordial chest pain Procedures NC Myocardial Perfusion Exercise Multiple Stephan Day DO Phone: tel: fax: mailto:[email or web address] Referral ID Status Reason Start Date Expiration Date Visits Re quested Visits Authorized [id number] Closed 06/01/2018 07/30/2018 1 1 Encounter Details Date Type Department Care Team (Late st Contact Info) Description 06/01/2018 Ancillary Orders Virtual Department [address] [place] [address] Stephan Day DO [address] [place] [address] [email or web address] Precordial chest pain Social History Tobacco Use [...] as of this encounter Results * NC Myocardial Perfusion Exercise Multiple (06/01/2018 1:08 PM EDT) Anatomical Region Laterality Modality Heart, Vascular Nuclear Medicine 06/01/2018 1:23 PM EDT Impressions 06/01/2018 1:29 PM EDT No findings of significant prior infarction or current ischemia are identified. Estimated left ventricular ejection fraction of greater than 70%. The appearance is similar to prior imaging from February 07, 2014. S/S: Precordial chest pain, abnormal/positive ETT POS - [id number] Narrative 06/01/2018 1:29 PM EDT The patient is injected intravenously with 7.9 mCi of Tc99m labeled Cardiolite at rest and 25.6 mCi with the same agent at stress. SPECT images are obtained of both injections and are gated at stress. The patient is stressed utilizing an exercise test and achieved a peak heart rate which is 86% of that predicted. Evaluation of the left ventricular perfusion discloses a normal sized left ventricular cavity. No fixed or reversible perfusion defects are noted. There is minor septal hypokinesis. The estimated left ventricular ejection fraction is greater than 70%. TID ratio 0.94. Procedure Note Abelino Mathis MD - 06/01/2018 The patient is injected intravenously with 7.9 mCi of Tc99m labeledCardiolite at rest and 25.6 mCi with the same agent at stress. SPECTimages are obtained of both injections and are gated at stress. Thepatient is stressed utilizing an exercise test and achieved a peak heartrate which is 86% of that predicted. Evaluation of the left ventricular perfusion discloses a normal sized leftventricular cavity. No fixed or reversible perfusion defects are noted.There is minor septal hypokinesis. The estimated left ventricular ejectionfraction is greater than 70%. TID ratio 0.94. IMPRESSION: No findings of significant prior infarction or current ischemia areidentified. Estimated left ventricular ejection fraction of greater than70%. The appearance is similar to prior imaging from February 07, 2014. S/S: Precordial chest pain, abnormal/positive ETT POS - [id number] us Stephan Day DO CV NM CARDIAC Final Result documented in this encounter Visit Diagnoses Diagnosis Precordial chest pain Precordial pain Precordial chest pain Precordial pain documented in this encounter Care Teams Casting House Worker Relationship Specialty Start Date End Date Stephan Day DO [email or web address] PCP - General Internal Medicine 10/24/17 03/21/21 Stephan Day DO PCP - General Internal Medicine 03/22/21 Stephan Day DO [address] [place] [address] [email or web address] Insurance Assigned Provider 01/26/19 11/28/19 Stephan Day DO [address] [place] [address] Insurance Assigned Provider 01/01/20 03/05/22 documented as of this encounter Additional Source Comments The information contained in this document represents components of the legal health record. It is not the complete legal health record.[facility]
--- OUTSIDE RECORDS SUMMARY | 2025-08-15 15:03 | XMS_ITS | Encounter Summary ---
Author Organization [facility] Address [address] [place] [address] Phone Care Team Providers Care Bagging Machine Operator Name Role Phone Stephan Day DO Primary Care Provider [phone] Stephan Day DO Unavailable Stephan Day DO Unavailable Barb, Stephan Robledo DO Primary Care Provider [phone] Encounter Details Date Type Department Care Team (Late st Contact Info) Description 11/13/2017 Procedure Pass OR Admitting Dept - Virtual Department [address] [place] [address] Social History Tobacco Use Types Packs/Day Years [...] on filedocumented in this encounter Care Teams Bagging Machine Operator Relationship Specialty Start Date End Date Stephan Day DO PCP - General Internal Medicine 10/24/17 03/21/21 Stephan Day DO PCP - General Internal Medicine 03/22/21 Stephan Day DO [address] [place] [address] Insurance Assigned Provider 01/26/19 11/28/19 Stephan Day DO [address] [place] [address] Insurance Assigned Provider 01/01/20 03/05/22 documented as of this encounter Additional Source Comments The information contained in this document represents components of the legal health record. It is not the complete legal health record.[facility]
--- OUTSIDE RECORDS SUMMARY | 2025-08-15 15:03 | XMS_ITS | Encounter Summary ---
Author Organization [facility] Address [address] [place] [address] Care Team Providers Care Boiler Technician Name Role Phone BarbStephan Primary Care Provider Encounter Details Date Type Department Care Team (Late st Contact Info) Description 10/06/2016 Orders Only [facility] Building [address] [place], [place] [phone] Leslye Gonzales MD [address] [place], [place] [phone] Social History Tobacco Use Types Packs/Day Years [...] Description 11/05/2025 3:00 PM EST Office Visit [facility] [address] [place] [address] Procurement Professional: Gail Cuevas documented as of this encounter Visit Diagnoses Not on filedocumented in this encounter Care Teams Boiler Technician Relationship Specialty Start Date End Date Stephan Day [address] [place] [phone] PCP - General 04/13/17 documented as of this encounter
--- OUTSIDE RECORDS SUMMARY | 2025-08-15 15:03 | XMS_ITS | Encounter Summary ---
Author Organization [facility] Address [address] [place] [address] Phone Care Team Providers Care Life Skills Coordinator Name Role Phone Stephan Day Primary Care Provider [phone] Reason for Referral * MRI/CAT Scan - Closed Specialty Diagnoses / Procedures Referred By Stacey t Referred To Contact Radiology Diagnoses Left shoulder pain, unspecified chronicity Procedures MRI Shoulder (Left) CHG MRI, JOINT UPPER EXTREM CHG MRI, JOINT UPPER EXTREM W/CONTRAST CHG MRI, JOINT UPPER EXTREM COMBO Lorri Goel NP Phone: tel: fax: mailto:[email or web address] Referral ID Status Reason Start Date Expiration Date Visits Re quested Visits Authorized [id number] Closed 07/17/2023 09/14/2023 1 1 Encounter Details Date Type Department Care Team (Latest Contact Info) Description 07/24/2023 Transcribe Orders Virtual Department [address] [place] [address] Lorri Goel NP [address] [place] [phone] [email or web address] Left shoulder pain, unspecified chronicity (Primary Dx) Social History Tobacco [...] as of this encounter Results * MRI SHOULDER WITHOUT CONTRAST (LEFT) (08/12/2023 11:07 AM EST) Anatomical Region Laterality Modality Shoulder Left Magnetic Resonan ce 08/15/2023 5:10 PM EST Impressions 08/15/2023 5:32 PM EST 1. High-grade partial-thickness tearing of the leading edge of the supraspinatus, without retraction. No rotator cuff muscular atrophy. 2. Mild acromioclavicular and glenohumeral joint osteoarthritis. 3. Subacromial subdeltoid bursitis. Narrative 08/15/2023 5:32 PM EST MRI SHOULDER WITHOUT CONTRAST (LEFT) Referring clinician's provided indication for this examination in Epic: Outside Radiology Order; LEFT SHOULDER PAIN TECHNIQUE: Multi-sequence, multi-planar MRI of the shoulder without intravenous contrast. COMPARISON: XR SHOULDER 2 OR MORE VIEWS (LEFT) FINDINGS: Coracoacromial Arch: Mild acromioclavicular joint degenerative change. Small volume fluid in the subacromial subdeltoid bursa. Rotator Cuff: There is high-grade partial-thickness tearing of the leading edge of the supraspinatus, without retraction. Subscapularis is limited in assessment due to internal rotation. Infraspinatus and teres minor are intact. No rotator cuff muscular atrophy. Glenoid Labrum and Biceps Tendon: No displaced labral tear. Intra-articular and extra-articular biceps tendon is intact. Bones: No fracture, osteonecrosis, or focal lesion. Glenohumeral Joint: No joint effusion or synovitis. No capsulitis. Cartilage surface irregularity without full-thickness cartilage loss or degenerative marrow edema. Procedure Note Levar Kirby MD - 08/15/2023 MRI SHOULDER WITHOUT CONTRAST (LEFT) Referring clinician's provided indication for this examination in Epic:Outside Radiology Order; LEFT SHOULDER PAIN TECHNIQUE: Multi-sequence, multi-planar MRI of the shoulder withoutintravenous contrast. COMPARISON: XR SHOULDER 2 OR MORE VIEWS (LEFT) FINDINGS: Coracoacromial Arch: Mild acromioclavicular joint degenerative change.Small volume fluid in the subacromial subdeltoid bursa. Rotator Cuff: There is high-grade partial-thickness tearing of the leadingedge of the supraspinatus, without retraction. Subscapularis is limited inassessment due to internal rotation. Infraspinatus and teres minor areintact. No rotator cuff muscular atrophy. Glenoid Labrum and Biceps Tendon: No displaced labral tear.Intra-articular and extra-articular biceps tendon is intact. Bones: No fracture, osteonecrosis, or focal lesion. Glenohumeral Joint: No joint effusion or synovitis. No capsulitis.Cartilage surface irregularity without full-thickness cartilage loss ordegenerative marrow edema. IMPRESSION: 1. High-grade partial-thickness tearing of the leading edge of thesupraspinatus, without retraction. No rotator cuff muscular atrophy. 2. Mild acromioclavicular and glenohumeral joint osteoarthritis. 3. Subacromial subdeltoid bursitis. Lorri Goel NP IM MR EXTREMITY Final Result documented in this encounter Visit Diagnoses Diagnosis Left shoulder pain, unspecified chronicity- Primary Left shoulder pain, unspecified chronicity documented in this encounter Care Teams Life Skills Coordinator Relationship Specialty Start Date End Date MarleyStephan boyce [email or web address] PCP - General Internal Medicine 03/22/21 documented as of this encounter Additional Source Comments The information contained in this document represents components of the legal health record. It is not the complete legal health record.[facility]
--- OUTSIDE RECORDS SUMMARY | 2025-08-15 15:03 | XMS_ITS | Encounter Summary ---
Author Organization [facility] Address [address] [place] [address] Phone Care Team Providers Care Social Work Therapist Name Role Phone Stephan Day DO Primary Care Provider [phone] Stephan Day DO Unavailable Stephan Day DO Unavailable Barb, Stephan Robledo DO Primary Care Provider [phone] Encounter Details Date Type Department Care Team (Late st Contact Info) Description 06/12/2018 Procedure Pass [facility], [address] [address] Social History Tobacco Use Types Packs/Day Years [...] on filedocumented in this encounter Care Teams Social Work Therapist Relationship Specialty Start Date End Date Stephan Day DO PCP - General Internal Medicine 10/24/17 03/21/21 Stephan Day DO PCP - General Internal Medicine 03/22/21 Stephan Day DO [address] [place] [address] Insurance Assigned Provider 01/26/19 11/28/19 Stephan Day DO [address] [place] [address] Insurance Assigned Provider 01/01/20 03/05/22 documented as of this encounter Additional Source Comments The information contained in this document represents components of the legal health record. It is not the complete legal health record.[facility]
--- OUTSIDE RECORDS SUMMARY | 2025-08-15 15:03 | XMS_ITS | Encounter Summary ---
Author Organization [facility] Address [address] [place] [address] Phone Care Team Providers Care Communications Project Manager Name Role Phone Stephan Day Primary Care Provider [phone] Encounter Details Date Type Department Care Team (Late st Contact Info) Description 07/24/2023 Procedure Pass [facility], [address] [place] [address] Social History Tobacco Use Types Packs/Day Years [...] on filedocumented in this encounter Care Teams Communications Project Manager Relationship Specialty Start Date End Date MarleyStephan boyce Meena [email or web address] PCP - General Internal Medicine 03/22/21 documented as of this encounter Additional Source Comments The information contained in this document represents components of the legal health record. It is not the complete legal health record.[facility]
--- OUTSIDE RECORDS SUMMARY | 2025-08-15 15:03 | XMS_ITS | Encounter Summary ---
Author Organization [facility] Address [address] [place] [address] Phone Care Team Providers Care Abstract Writer Name Role Phone Bigcarli, Stephan Robledo DO Primary Care Provider [phone] Bigda, Stephan A DO Unavailable Bigda, Stephan A DO Primary Care Provider [phone] Encounter Details Date Type Department Care Team (Late st Contact Info) Description 10/13/2020 Procedure Pass [address] [place] [address] Social History Tobacco Use Types Packs/Day Years [...] - Inhaled Oxygen Concentration - - Weight 54.4 kg (120 lb) 10/14/2020 7:37 PM EST Height 160 cm (5' 3 ) 10/14/2020 7:37 PM EST Body Mass Index 21.26 10/14/2020 7:37 PM EST documented in this encounter Plan of Treatment Not on file documented as of this encounter Visit Diagnoses Not on filedocumented in this encounter Care Teams Abstract Writer Relationship Specialty Start Date End Date Stephan Day DO PCP - General Internal Medicine 10/24/17 03/21/21 Stephan Day DO [email or web address] PCP - General Internal Medicine 03/22/21 Stephan Day DO [address] [place] [address] Insurance Assigned Provider 01/01/20 03/05/22 documented as of this encounter Additional Source Comments The information contained in this document represents components of the legal health record. It is not the complete legal health record.[facility]
--- OUTSIDE RECORDS SUMMARY | 2025-08-15 15:03 | XMS_ITS | Encounter Summary ---
Author Organization [facility] Address [address] [place] [address] [address] [place] [address] Phone Care Team Providers Care Technology Applications Teacher Name Role Phone Barb, Stephan Robledo DO Primary Care Provider [phone] Bigda, Stephan Meena DO Unavailable Marleyda, Stephan Robledo DO Unavailable Bigda, Stephan Meena DO Primary Care Provider [phone] Encounter Details Date Type Department Care Team (Late st Contact Info) Description 11/01/2017 Transcribe Orders [facility] [address] [place] [address] [facility] [place] [address] Barb, Stephan Robledo, DO [address] [facility] [place] [address] [place] [address] Inguinal hernia with obstruction without gangrene, recurrence not specified, unspecified laterality (Primary Dx) Social History Tobacco [...] documented as of this encounter Results * Comprehensive metabolic panel (11/01/2017 10:06 AM EST) SODIUM 141 133 - 146 mmol/L [facility] POTASSIUM 4.5 3.3 - 5.1 mmol/L [facility] CHLORIDE 100 96 - 108 mmol/L [facility] CO2 26 21 - 35 mmol/L [facility] BUN 16 6 - 19 mg/dL [facility] CREATININE 0.60 0.5 - 1.5 mg/dL [facility] GLUCOSE 93 70 - 99 mg/dL [facility] ALBUMIN 4.6 3.9 - 4.8 g/dL [facility] TOTAL PROTEIN 7.4 6.5 - 8.0 g/dL [facility] CALCIUM 9.9 8.4 - 10.3 mg/dL [facility] ALKALINE PHOSPHATASE 97 39 - 117 U/L [facility] TOTAL BILIRUBIN 0.3 0 - 1.2 mg/dL [facility] AST 17 0 - 37 U/L [facility] ALT 14 0 - 40 U/L [facility] GLOBULIN 2.8 1 - 4.8 g/dL [facility] EGFR >60 >60 mL/min/1.7 3m2 [facility] Comment:Abnormal if <60. If patient is -[place], multiply the result by 1.21. ANION GAP 20 10 - 20 mmol/L [facility] Blood 11/01/2017 10:0 6 AM EST 11/01/2017 10:11 AM EST us Stephan Day DO LAB BLOOD BKR ORDERABLES Final R esult [facility] [address] [place] [address] * CBC (11/01/2017 10:06 AM EST) WBC 6.43 3.40 - 11.20 K/uL [facility] RBC 4.58 3.80 - 4.80 M/uL [facility] HGB 13.5 12.0 - 15.0 g/dL [facility] HCT 40.8 36.0 - 46.0 % [facility] PLT 188 130 - 400 K/uL [facility] MCV 89.1 79.0 - 98.0 fL [facility] MCH 29.5 27.0 - 34.8 pg [facility] MCHC 33.1 31.5 - 36.0 g/dL [facility] RDW 13.2 10.8 - 14.6 % [facility] MPV 11.3 9.4 - 12.4 fl [facility] NRBC 0.00 /100 WBCs [facility] ABSOLUTE NRBC 0.00 K/uL [facility] Blood 11/01/2017 10:0 6 AM EST 11/01/2017 10:11 AM EST us Stephan Day DO LAB BLOOD BKR ORDERABLES Final R esult Performing Organization Address City/State/[facility] Co de Phone Number [facility] [address] [place] [address] documented in this encounter Visit Diagnoses Diagnosis Inguinal hernia with obstruction without gangrene, recurrence not specified, unspecified laterality- Primary documented in this encounter Care Teams Technology Applications Teacher Relationship Specialty Start Date End Date Stephan Day DO [email or web address] PCP - General Internal Medicine 10/24/17 03/21/21 Stephan Day DO [email or web address] PCP - General Internal Medicine 03/22/21 Stephan Day DO [address] [place] [address] [email or web address] Insurance Assigned Provider 01/26/19 11/28/19 Stephan Day DO [address] [place] [address] (work) [email or web address] Insurance Assigned Provider 01/01/20 03/05/22 documented as of this encounter Additional Source Comments The information contained in this document represents components of the legal health record. It is not the complete legal health record.[facility]
--- OUTSIDE RECORDS SUMMARY | 2025-08-15 15:03 | XMS_ITS | Encounter Summary ---
Author Organization [facility] Address [address] [place] [address] Phone Care Team Providers Care Product Manager E Commerce Name Role Phone Stephan Day DO Primary Care Provider [phone] Stephan Day DO Unavailable Stephan Day DO Primary Care Provider [phone] Encounter Details Date Type Department Care Team (Late st Contact Info) Description 12/22/2020 Procedure Pass [facility], [address] [address] Social History Tobacco Use Types Packs/Day Years [...] on filedocumented in this encounter Care Teams Product Manager E Commerce Relationship Specialty Start Date End Date Stephan Day DO [email or web address] PCP - General Internal Medicine 10/24/17 03/21/21 Stephan Day DO PCP - General Internal Medicine 03/22/21 Stephan Day DO [address] [place] [address] Insurance Assigned Provider 01/01/20 03/05/22 documented as of this encounter Additional Source Comments The information contained in this document represents components of the legal health record. It is not the complete legal health record.[facility]
--- OUTSIDE RECORDS SUMMARY | 2025-08-15 15:03 | XMS_ITS | Encounter Summary ---
Author Organization [facility] Address [address] [place] [address] [address] [place] [address] Phone Care Team Providers Care Ton Container Shipper Name Role Phone Barb, Stephan Robledo DO Primary Care Provider [phone] Bigda, Stephan Robledo DO Unavailable Bigda, Stephan Meena DO Unavailable Bigda, Stephan A DO Primary Care Provider [phone] Encounter Details Date Type Department Care Team (Late st Contact Info) Description 03/18/2019 Transcribe Orders Virtual Department [address] [place] [address] Barb, Stephan Robledo, DO [address] [facility] [address] [place] [address] Cough (Primary Dx) Social History Tobacco Use Types [...] as of this encounter Results * XR CHEST PA AND LATERAL 2 VIEWS (04/26/2019 12:54 PM EDT) Anatomical Region Laterality Modality Chest Radiographic Julissa ging 04/26/2019 2:08 PM EDT Impressions 04/26/2019 2:10 PM EDT No acute pulmonary process or explanation for hoarseness is seen. No mediastinal mass or lymphadenopathy is noted. S/S: Hoarseness, chest irritation POS - [id number] Narrative 04/26/2019 2:10 PM EDT COMPARISON: Chest x-ray 02/22/2011 FINDINGS: PA and lateral imaging of the chest obtained. The heart size is normal. The lung camacho are clear. No pneumothorax or pleural fluid is seen. The aortic contour is unremarkable. There are mild degenerative changes in the thoracic spine. Procedure Note Abelino Mathis MD - 04/26/2019 COMPARISON: Chest x-ray 02/22/2011 FINDINGS: PA and lateral imaging of the chest obtained. The heart size is normal. The lung camacho are clear. No pneumothorax or pleural fluid is seen. The aortic contour is unremarkable. There are mild degenerative changes in the thoracic spine. IMPRESSION: No acute pulmonary process or explanation for hoarseness is seen. Nomediastinal mass or lymphadenopathy is noted. S/S: Hoarseness, chest irritation POS - [id number] Stephan Day DO IMG XR CHEST Final Result documented in this encounter Visit Diagnoses Diagnosis Cough- Primary Cough documented in this encounter Care Teams Ton Container Shipper Relationship Specialty Start Date End Date Stephan Day DO [email or web address] PCP - General Internal Medicine 10/24/17 03/21/21 Stephan Day DO [email or web address] PCP - General Internal Medicine 03/22/21 Stephan Day DO [address] [place] [address] [email or web address] Insurance Assigned Provider 01/26/19 11/28/19 Stephan Day DO [address] [place] [address] [email or web address] Insurance Assigned Provider 01/01/20 03/05/22 documented as of this encounter Additional Source Comments The information contained in this document represents components of the legal health record. It is not the complete legal health record.[facility]
--- OUTSIDE RECORDS SUMMARY | 2025-08-15 15:03 | XMS_ITS | Clinical Summary ---
Author Organization [facility] Address [address] [place] [address] Care Team Providers Care Joint Supervisor Name Role Phone Stephan Day Primary Care Provider [phone] Allergies Active Allergy Reactions Criticality Noted Date Comments Chlorhexidine Pruritus (itching) 11/13/2017 Tramadol Nausea/GI Upset,Other 09/17/2017 Tramadol Hcl Other 04/06/2023 Medications [place] 3-6-9 Cap [place] 3 CAPS NO LONGER TAKING PER PT Refills: 0 Active Active METRONIDAZOLE, TOPICAL, (METROCREAM) 0.75 % cream APPLY A THIN LAYER TO THE AFFECTED AREA(S) BY TOPICAL ROUTE 2 TIMES PER DAY IN THE MORNING AND EVENING 2 Active LORazepam (ATIVAN) 0.5 MG tablet TAKE ONE TABLET BY MOUTH THREE TIMES A DAY NEEDED FOR 10 DAYS Active KETOCONAZOLE, TOPICAL, (NIZORAL) 2 % shampoo APPLY TO THE AFFECTED AREA(S), LATHER, LEAVE IN PLACE FOR 5 MINUTES, AND THEN RINSE OFF WITH WATER ONCE DAILY Active Rebif 22 MCG/0.5ML injection EVERY OTHER DAY; SKIPS TWO DAYS (gets 9 syringes a month)medically necessary 3 Active Erythromycin (ROMYCIN) ophthalmic ointment PLACE 1/2 INCH RIBBON INTO EACH EYE FOUR TIMES A DAY FOR 7 DAYS 3 Active Flowflex COVID-19 Ag Home Test Kit TEST DIRECTED TODAY 2 Active buPROPion HCl (WELLBUTRIN) 75 MG tablet Take 1 tablet by mouth 1 (one) time each day. Active Cholecalciferol (VITAMIN D-3) 50 MCG (1999 UT) capsule Take by oral route. Active Baclofen 5 MG Tab 3 Active Ascorbic Acid (VITAMIN C) 250 MG tablet Take 250 mg by mouth. Active Amino Acids (Nutrasentials) Powder Take by mouth 1 (one) time each day. Active Lactobacillus (Probiotic Acidophilus) Cap Take by mouth. Activ e TURMERIC CURCUMIN OR Take by mouth. Act kiara Lifitegrast 5 % Solution 1 gtt BID OU. 180 each 3 4 Active Olmesartan Medoxomil (BENICAR) 20 MG tablet Take 20 mg by mouth 1 (one) time each day as directed. 5 Active cycloSPORINE (Restasis) 0.05 % ophthalmic emulsion Administer 1 drop into both eyes every 12 (twelve) hours. Active Perfluorohexylo ctane (MIEBO) 1.338 GM/ML Opthalmic Solution Administer one drop into both eyes 4 (four) times a day. 3 mL 1 5 10/10/19 26 Active Active Problems Problem Noted Date Diagnosed Date Keratoconjunctivitis sicca 05/30/2023 Encounters Date Type Department Care Team Description 06/12/2025 10:10 AM EDT Consult (Initial) [facility] [address] [place] [address] Mirza Luis MD Keratoconjunctivitis sicca; NS (nuclear sclerosis), bilateral; Blepharitis of both eyes with rosacea; Floaters, bilateral from Last 3 Months Social History Tobacco Use Types Packs/Day Years Used Date Smoking Tobacco: Never Assessed Intimate Partner Violence Answer Date R ecorded Fear of Current or Ex-Partner Not on file Emotionally Abused Not on file 05/18/2023 Physically Abused Not on file 05/18/2023 Sexually Abused Not on file 05/18/2023 Feel Safe at Home Not on file 05/18/2023 Comments Unknown Sex and Gender Information Value Date Recorded Sex Assigned at Not on file Legal Sex Female 11:17 AM EDT Gender Identity Not on file Sexual Orientation Not on file Plan of Treatment Upcoming Encounters Date Type Department Care Team (Late st Contact Info) Description 10/09/2025 1:20 PM EST Office Visit [facility] [address] [place] [phone] Mirza Luis MD [address] [place] [address] RTC in Winter for dry eye check Health Maintenance Due Date Last Done Comments Hepatitis C Screening 1958 DTaP/Tdap/Td (1 - Tdap) 1976 Colon Cancer Screening 2003 Pneumococcal 50+ years (1 of 1 - PCV) 2008 Zoster (Shingrix) (1 of 2) 2008 Mammogram/Breast Imaging 05/17/2023 022, 05/17/2022, 02/23/2021, Additional history exists COVID-19 Vaccine (2024- season) 2025 10/06/2021, 01/08/2021, 12/11/2020 Influenza (#1) 2025 RSV (1 - 1-dose 75+ series) 2033 LDL Cholesterol Discontinued 10/03/2023, 05/2024, 09/20/2021 Bone Density Completed 12/27/2024, 09/22/2022 Eye/Retina Exam Discontinued 06/12/2025, 04/25, 08/29/2023, Additional history exists HPV Vaccine (No Doses Required) Completed Hep A Aged Out No longer eligi ble based on patient's age to complete this topic Hep B Aged Out No longer eligi ble based on patient's age to complete this topic Hib Aged Out No longer eligi ble based on patient's age to complete this topic Meningococcal ACWY Aged Out No longer eligible based on patient's age to complete this topic Pap Smear Discontinued Zoster (Zostavax) Discontinued Procedures * Due to [place] Medisas law, this organization might not be sharing negative HIV tests. Procedure Name Priority Date/Time Associated Diagnosis Comments OPHTHALMOLOGICAL TEST/PROCEDURE, UNSPECIFIED 06/12/2025 from Last 3 Months Results * Due to [place] Medisas law, this organization might not be sharing negative HIV tests. * OPHTHALMOLOGICAL TEST/PROCEDURE, UNSPECIFIED (06/12/2025) us Mirza Luis MD PROCEDURES Final Result from Last 3 Months Insurance [place] FEE FOR SERVICE MEDICARE MEDICAID Care Teams Joint Supervisor Relationship Specialty Start Date End Date Stephan Day [facility] [address] [place] [id number] PCP - General Internal Medicine 04/06/23
--- OUTSIDE RECORDS SUMMARY | 2025-08-15 15:03 | XMS_ITS | Encounter Summary ---
Author Organization [facility] Address [address] [place] [address] Phone Care Team Providers Care Immigration Services Officer Name Role Phone Stephan Day DO Primary Care Provider [phone] Stephan Day DO Unavailable Stephan Day DO Unavailable Barb, Stephan Robledo DO Primary Care Provider [phone] Encounter Details Date Type Department Care Team (Late st Contact Info) Description 06/12/2018 Procedure Pass [facility], [address] [address] Social History Tobacco Use Types Packs/Day Years [...] on filedocumented in this encounter Care Teams Immigration Services Officer Relationship Specialty Start Date End Date Stephan Day DO PCP - General Internal Medicine 10/24/17 03/21/21 Stephan Day DO PCP - General Internal Medicine 03/22/21 Stephan Day DO [address] [place] [address] Insurance Assigned Provider 01/26/19 11/28/19 Stephan aDy DO [address] [place] [address] Insurance Assigned Provider 01/01/20 03/05/22 documented as of this encounter Additional Source Comments The information contained in this document represents components of the legal health record. It is not the complete legal health record.[facility]
--- OUTSIDE RECORDS SUMMARY | 2025-08-15 15:03 | XMS_ITS | Encounter Summary ---
Author Organization [facility] Address [address] [place] [address] Phone Care Team Providers Care Battery Hand Name Role Phone Bigda, Stephan A DO Primary Care Provider [phone] Bigda, Stephan A DO Unavailable Bigda, Stephan A DO Primary Care Provider [phone] Encounter Details Date Type Department Care Team (Latest Contact Info) Description 03/02/2021 Transcribe Orders Virtual Department [address] [place] [address] Keesha Dinh NP [email or web address] MS (multiple sclerosis) (Primary Dx) Social History [...] as of this encounter Visit Diagnoses Diagnosis MS (multiple sclerosis)- Primary Multiple sclerosis documented in this encounter Care Teams Battery Hand Relationship Specialty Start Date End Date Bigda, Stephan A, [email or web address] PCP - General Internal Medicine 10/24/17 03/21/21 Barb Stephan RobledoDO PCP - General Internal Medicine 03/22/21 Stephan Day DO [address] [place] [id number] [email or web address] Insurance Assigned Provider 01/01/20 03/05/22 documented as of this encounter Additional Source Comments The information contained in this document represents components of the legal health record. It is not the complete legal health record.[facility]
--- OUTSIDE RECORDS SUMMARY | 2025-08-15 15:03 | XMS_ITS | Encounter Summary ---
Author Organization [facility] Address [address] [place] [address] Phone Care Team Providers Care Coal Deliverer Name Role Phone December PA-Ghassan Primary Care Provider Bigda, Stephan A DO Primary Care Provider [phone] Bigda, Stephan A DO Unavailable Bigda, Stephan A DO Unavailable Bigda, Stephan A DO Primary Care Provider [phone] Encounter Details Date Type Department Care Team (Late st Contact Info) Description 07/28/2017 Ancillary Orders [facility], X-Ray - [facility] [address] [place] [address] Bigcarli, Stephan Robledo, DO [address] [facility] [place] [address] [email or web address] Pain Social History Tobacco Use Types Packs/Day [...] as of this encounter Results * XR FEMUR (RIGHT) 2 VIEWS (07/28/2017 4:07 PM EDT) Anatomical Region Laterality Modality Thigh Right Radiographic Julissa ging 07/28/2017 4:29 PM EDT Impressions 07/28/2017 4:30 PM EDT Unremarkable plain film appearance of the femur. No source of pain is apparent POS [id number] Narrative 07/28/2017 4:30 PM EDT Five views. No comparison No evidence of trauma, tumor or infection. No significant arthritic changes Procedure Note Trever Arriaga MD - 07/28/2017 Five views. No comparison No evidence of trauma, tumor or infection. No significant arthriticchanges IMPRESSION: Unremarkable plain film appearance of the femur. No source of pain isapparent POS [id number] Stephan Day DO IMG XR LOWER EXTREMITY Final Res ult documented in this encounter Visit Diagnoses Diagnosis Pain Generalized pain Pain Generalized pain documented in this encounter Care Teams Coal Deliverer Relationship Specialty Start Date End Date SukhwinderDecember, SERGO [address] [place] [address] [email or web address] PCP - General Unknown Provider Specialty 07/28/17 10/23/17 Stephan Day DO [address] [place] [address] [email or web address] PCP - General Internal Medicine 10/24/17 03/21/21 Stephan Day DO [address] [place] [address] [email or web address] PCP - General Internal Medicine 03/22/21 Stephan Day DO [address] [place] [address] Insurance Assigned Provider 01/26/19 11/28/19 Stephan Day DO [address] [place] [address] Insurance Assigned Provider 01/01/20 03/05/22 documented as of this encounter Additional Source Comments The information contained in this document represents components of the legal health record. It is not the complete legal health record.[facility]
--- OUTSIDE RECORDS SUMMARY | 2025-08-15 15:03 | XMS_ITS | Encounter Summary ---
Author Organization [facility] Address [address] [place] [address] [place] [address] Phone Care Team Providers Care Reporting Consultant Name Role Phone Stephan Day Primary Care Provider [phone] Encounter Details Date Type Department Care Team (Late st Contact Info) Description 06/09/2023 Ancillary Orders [facility], X-Ray - [facility] [address] [place] [address] Lorri Goel, REPLANTER [address] [place] [phone] [email or web address] Social History Tobacco Use Types Packs/Day [...] as of this encounter Results * XR SHOULDER 2 VIEWS (LEFT) (06/09/2023 9:22 AM EDT) Anatomical Region Laterality Modality Shoulder Left Computed Radiogr aphy 06/10/2023 11:0 9 PM EDT Impressions 06/10/2023 11:09 PM EDT Bones demineralized. No acute osseous abnormality or significant degenerative change. Narrative 06/10/2023 11:09 PM EDT XR SHOULDER 2 OR MORE VIEWS (LEFT) COMPARISON: None FINDINGS: BONE: Bones demineralized. No acute fracture or dislocation. GLENOHUMERAL JOINT: Joint spaces preserved. ACROMIOCLAVICULAR JOINT: Joint spaces preserved. OTHER: No soft tissue swelling. Procedure Note Liz Queen MD - 06/10/2023 XR SHOULDER 2 OR MORE VIEWS (LEFT) COMPARISON: None FINDINGS: BONE: Bones demineralized. No acute fracture or dislocation. GLENOHUMERAL JOINT: Joint spaces preserved. ACROMIOCLAVICULAR JOINT: Joint spaces preserved. OTHER: No soft tissue swelling. IMPRESSION: Bones demineralized. No acute osseous abnormality or significant degenerative change. us Lorri Goel REPLANTER IMG XR UPPER EXTREMITY Final Res ult documented in this encounter Visit Diagnoses Diagnosis Pain Generalized pain Pain Generalized pain documented in this encounter Care Teams Reporting Consultant Relationship Specialty Start Date End Date Stephan Day DO PCP - General Internal Medicine 03/22/21 documented as of this encounter Additional Source Comments The information contained in this document represents components of the legal health record. It is not the complete legal health record.[facility]
--- OUTSIDE RECORDS SUMMARY | 2025-08-15 15:03 | XMS_ITS | Encounter Summary ---
Author Organization [facility] Address [address] [place] [address] Care Team Providers Care Lead Software Engineer Name Role Phone BarbStephan Primary Care Provider [phone] Encounter Details Date Type Department Care Team (Late st Contact Info) Description 11/22/2016 Orders Only [facility] Building [address] [place], [place] [phone] Leslye Gonzales MD [address] [place], [place] [phone] Social History Tobacco Use Types Packs/Day Years [...] Description 11/05/2025 3:00 PM EST Office Visit [facility] [address] [place] [address] Garnett Feeder: Gail Cuevas documented as of this encounter Visit Diagnoses Not on filedocumented in this encounter Care Teams Lead Software Engineer Relationship Specialty Start Date End Date Stephan Day [address] [place] [phone] PCP - General 04/13/17 documented as of this encounter
--- OUTSIDE RECORDS SUMMARY | 2025-08-15 15:03 | XMS_ITS | Encounter Summary ---
Author Organization [facility] Address [address] [place] [address] [address] [place] [address] Phone Care Team Providers Care Airplane Navigator Name Role Phone Marleycarli, Stephan Robledo DO Primary Care Provider [phone] Bigda, Stephan Robledo DO Unavailable Marleyda, Stephan Meena DO Unavailable Bigda, Stephan A DO Primary Care Provider [phone] Encounter Details Date Type Department Care Team (Late st Contact Info) Description 05/29/2018 Ancillary Orders Virtual Department [address] [place] [address] Barb, Stephan Robledo, DO [address] [facility] [place] [address] [place] [address] [email or web address] Radicular pain Social History Tobacco Use Types Packs/Day [...] as of this encounter Results * XR CERVICAL SPINE 4-5 VIEWS (06/01/2018 10:50 AM EDT) Anatomical Region Laterality Modality C-spine Radiographic Julissa ging 06/01/2018 11:3 8 AM EDT Impressions 06/01/2018 11:41 AM EDT Mild to moderate cervical spondylosis with slight loss of disc space height and bony spurring as detailed above. No foraminal encroachment, compression fracture, or significant subluxation is seen. S/S: Radicular pain, left-sided radicular pain, acute onset, neck pain radiating to left arm POS - [id number] Narrative 06/01/2018 11:41 AM EDT COMPARISON: MRI cervical spine March 15, 2014 FINDINGS: Lateral, AP, both oblique, and odontoid views of the cervical spine are obtained. The odontoid is poorly seen on open-mouth view. On lateral view the odontoid appears intact. There is disc space narrowing of mild degree evident at C4-5 and C5-6 with bony spurring at these levels and also at C6-7. No compression fracture or significant subluxation is seen. The lung apices are clear. The neuroforamen are patent. Procedure Note Abelino Mathis MD - 06/01/2018 COMPARISON: MRI cervical spine March 15, 2014 FINDINGS: Lateral, AP, both oblique, and odontoid views of the cervical spine areobtained. The odontoid is poorly seen on open-mouth view. On lateral view theodontoid appears intact. There is disc space narrowing of mild degree evident at C4-5 and C5-6 withbony spurring at these levels and also at C6-7. No compression fracture or significant subluxation is seen. The lung apices are clear. The neuroforamen are patent. IMPRESSION: Mild to moderate cervical spondylosis with slight loss of disc spaceheight and bony spurring as detailed above. No foraminal encroachment,compression fracture, or significant subluxation is seen. S/S: Radicular pain, left-sided radicular pain, acute onset, neck painradiating to left arm POS - [id number] Stephan Day IMG XR SPINE Final Result documented in this encounter Visit Diagnoses Diagnosis Radicular pain Unspecified neuralgia, neuritis, and radiculitis Radicular pain Unspecified neuralgia, neuritis, and radiculitis documented in this encounter Care Teams Airplane Navigator Relationship Specialty Start Date End Date Stephan Day DO PCP - General Internal Medicine 10/24/17 03/21/21 Stephan Day DO PCP - General Internal Medicine 03/22/21 Stephan Day DO [address] [place] [address] Insurance Assigned Provider 01/26/19 11/28/19 Stephan Day DO [address] [place] [address] Insurance Assigned Provider 01/01/20 03/05/22 documented as of this encounter Additional Source Comments The information contained in this document represents components of the legal health record. It is not the complete legal health record.[facility]
--- OUTSIDE RECORDS SUMMARY | 2025-08-15 15:03 | XMS_ITS | Encounter Summary ---
Author Organization [facility] Address [address] [place] [address] Phone Care Team Providers Care Machine Engraver Name Role Phone Stephan Day Primary Care Provider [phone] Encounter Details Date Type Department Care Team (Late st Contact Info) Description 03/13/2023 Ancillary Orders [facility], X-Ray - [facility] [address] [place] [address] Lorri Goel, SHUTTLE ROUTE VEHICLE OPERATOR [address] [place] [phone] [email or web address] Pain in right hip Social History Tobacco Use Types Packs/Day Years [...] as of this encounter Results * XR HIP 2 VW RIGHT PLUS PELVIS (03/13/2023 9:24 AM EDT) Anatomical Region Laterality Modality Hip, Pelvis Computed Radiogr aphy 03/15/2023 10:4 0 AM EDT Impressions 03/15/2023 10:43 AM EDT Probable mild dysplastic changes without acute bony abnormality, or radiographic evidence of AVN, or osteoarthritis apparent. Narrative 03/15/2023 10:43 AM EDT XR HIP 2 VW RIGHT PLUS PELVIS COMPARISON: 05/27/2020 CT FINDINGS: Pelvis: No acute fracture or subluxation. No destructive bony lesion. Sacroiliac joints grossly stable. Right hip: No acute fracture or subluxation. Slightly steep acetabular roof and minimal uncovering of the lateral aspect of the femoral head. No gross joint space narrowing. Femoral head articular surface is smooth. Procedure Note Kade Gómez MD - 03/15/2023 XR HIP 2 VW RIGHT PLUS PELVIS COMPARISON: 05/27/2020 CT FINDINGS: Pelvis: No acute fracture or subluxation. No destructive bony lesion.Sacroiliac joints grossly stable. Right hip: No acute fracture or subluxation. Slightly steep acetabularroof and minimal uncovering of the lateral aspect of the femoral head. Nogross joint space narrowing. Femoral head articular surface is smooth. IMPRESSION: Probable mild dysplastic changes without acute bony abnormality, orradiographic evidence of AVN, or osteoarthritis apparent. Lorri Goel NP IMG XR PELVIS Final Result documented in this encounter Visit Diagnoses Diagnosis Pain in right hip Pain in right hip documented in this encounter Care Teams Machine Engraver Relationship Specialty Start Date End Date Stephan Day DO [email or web address] PCP - General Internal Medicine 03/22/21 documented as of this encounter Additional Source Comments The information contained in this document represents components of the legal health record. It is not the complete legal health record.[facility]
--- OUTSIDE RECORDS SUMMARY | 2025-08-15 15:03 | XMS_ITS | Encounter Summary ---
Author Organization [facility] Address [address] [place] [address] Care Team Providers Care Relationship Specialist Name Role Phone BarbStephan Primary Care Provider [phone] Encounter Details Date Type Department Care Team (Late st Contact Info) Description 11/09/2016 Orders Only [facility] Building [address] [place] [address] Leslye Gonzales MD [address] [place], [place] [id number] Social History Tobacco Use Types Packs/Day Years [...] Description 11/05/2025 3:00 PM EST Office Visit [facility] [address] [place] [address] [employer] Math Teacher: Gail Cuevas documented as of this encounter Visit Diagnoses Not on filedocumented in this encounter Care Teams Relationship Specialist Relationship Specialty Start Date End Date Stephan Day [address] [place] [phone] PCP - General 04/13/17 documented as of this encounter
--- OUTSIDE RECORDS SUMMARY | 2025-08-15 15:04 | XMS_ITS | Continuity of Care Document ---
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 Referral None recorded. Procedures None recorded. Surgeries None recorded. Imaging None recorded. Medication Orders ibandrona te 150 mg tablet 2024 025 [id number], [address] [facility], [place], [address], 07/02/2025 14:07:20 clonidine HCl 0.1 mg tablet 2024 025 [id number], [address] [facility], [place], [address], 08/15/2025 13:56:42 Patient TargetsNo targets recorded. Patient Instructions Encounter Date Encounter Id Patient Instructions Last Modified By Organization Details Last Modified Time 07/02/2025 [id number] hyperparathyroid i sm: care instructions Not available 07/02/2025 14:07:18 parathyroidectom y : before your surgery Not available 07/02/2025 14:07:18 osteoporosis: care instructions Not available 07/02/2025 14:07:18 Reason for Referral None Reported. Problems Name Problem SNOMED Code Status Onset Date Resolution Date Notes Provider Name and Address Organization Details Recorded Time Multiple sclerosis 59496318 Active 2017 Stephan Bryson DO [address] [place] [address], [address], [facility] 8 15:11:35 Lipodystr ophy 32830534 Active 2017 Stephan Bryson DO [address] [place] [address], [address], [facility] 8 15:42:28 Herpes zoster 5541507 Active 2017 Stephan Bryson DO [address] [place] [address], [address], [facility] 8 15:23:00 Bilateral optic neuritis 343006311275 106 Active 2018 Stephan Bryson DO [address] [place] [address], [address], [facility] 9 16:13:17 Dysphagia 19816316 Active 2018 Stephan Bryson DO [address] [place] [address], [address], [facility] 9 10:41:26 Neurologi c voice disorder 14523443 Active 2018 Stephan Bryson DO [address] [place] [address], [address], [facility] 9 10:41:45 Osteoporo sis 11076147 Active 2018 Stephan Jazmine Bryosn DO [address] [place] [address], [address], [facility] 5 14:06:15 Neurogeni c urinary bladder 265464780 Active 2018 Stephan Bryson, DO [address] [place] [address], [address], [facility] 9 09:52:10 Optic neuritis 52640459 Active 2018 Stephan Bryson [address], [address], [facility] 9 11:07:53 Hypertens kiara disorder 76800398 Active 2019 Stephan Bryson DO [address] [place] [address], [address], [facility] 5 15:13:23 Palpitati ons 91407164 Active 2021 LARRY ROSAS [address] [place] [address], [address], [facility] 2 10:37:01 Rosacea 687794629 Active 2021 LARRY ROSAS [address] [place] [address], [address], [facility] 2 14:14:35 Hypotensi ve episode 31453334 Active 2021 LARRY ROSAS [address] [place] [address], [address], [facility] 2 14:15:46 Panic attack 783737549 Active 2021 LARRY ROSAS [address] [place] [address], [address], [facility] 2 11:38:24 Dysuria 51035255 Active 2021 LARRY ROSAS [address] [place] [address], [address], [facility] 2 13:46:15 Abdominal pain 24035991 Active 2021 LARRY ROSAS [address] [place] [address], [address], [facility] 2 14:25:05 Superfici al punctate keratitis 74344191 Active 2021 LARRY ROSAS [address] [place] [address], [address], [facility] 2 14:39:14 Depressiv e disorder 63349472 Active 2021 LARRY ROSAS [address] [place] [address], [address], [facility] 2 14:51:38 Low back pain 954069786 Active 2021 LARRY ROSAS [address] [place] [address], [address], [facility] 2 13:08:20 Hyperpara thyroidis m 74722092 Active 2021 Stephan Bryson, DO [address] [place] [address], [address], [facility] 5 14:16:50 Thyroid nodule 748245161 Active 2021 LARRY ROSAS [address] [place] [address], [address], [facility] 2 12:15:19 Cyst of pancreas 70071329 Active 2021 LARRY ROSAS [address] [place] [address], [address], [facility] 2 12:15:27 Intoleran t of cold 90219022 Active 2021 LARRY ROSAS [address] [place] [address], [address], [facility] 2 12:24:41 Multiple benign melanocyt ic nevi 022729071 Active 2021 LARRY ROSAS [address] [place] [address], [address], [facility] 2 12:33:18 Menopause Active 2022 LARRY ROSAS [address] [place] [address], [address], [facility] 3 10:52:15 Rupture of rotator cuff of left shoulder 269139014996 18682 Active 2022 Stephan Bryson, DO [address] [place] [address], [address], [facility] 3 10:42:48 Periphera l vascular disease 029691856 Active 2022 Stephan Bryson DO [address] [place] [address], [address], [facility] 3 10:47:10 Raynaud's phenomeno n 472202071 Active 2023 Stephan Bryson DO [address] [place] [address], [address], [facility] 4 14:12:08 Intermitt ent palpitati ons 372244339 Active 2023 Stephan Bryson DO [address] [place] [address], [address], [facility] 4 15:15:01 Epigastri c pain 91297148 Active 2023 Stephan Bryson DO [address] [place] [address], [address], [facility] 4 14:21:39 Syncope 365744496 Active 2023 LARRY ROSAS [address] [place] [address], [address], [facility] 4 13:56:14 Essential hypertens ion 22679589 Active 2023 Stephan Bryson [address], [address], [facility] 5 14:05:15 Loss of hair 527602724 Active 2023 LARRY ROSAS [address] [place] [address], [address], [facility] 4 12:18:01 Acute urinary tract infection 708413347 Active 2023 Stephan Bryson [address], [address], [facility] 4 15:56:35 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 Stephan Bryson [address], [address], [facility] 5 14:02:18 Pyeloneph ritis 00257477 Active 2024 Stephan Bryson DO [address] [place] [address], [address], [facility] 5 14:20:52 Hematuria of undiagnos ed cause 225032215 Active 2024 Stephan Bryson [address], [address], [facility] 5 14:22:02 Multinodu lar goiter 106944288 Active 2024 Stephan Bryson DO [address] [place] [address], [address], [facility] 5 14:33:37 Subclinic al hypothyro idism 76914119 Active 2024 Stephan Bryson [address], [address], [facility] 5 14:36:57 Problem Notes None recorded. Procedures Surgical History Date Name Laterality Status Provider Name and Address Organization Details Recorded Time 09/30/19 Date of Last Pap Smear completed Stephan Bryson DO [address] [place], [address], [facility] 10/19/2021 08:30:23 12/18/19 18 Hernia Repair completed Stephan Bryson, DO [address] [place], [address], [facility] 06/14/2019 10:45:18 06/17/20 13 Colonoscopy completed Marva Pryor [facility] 05/14/2019 10:28:48 Hernia Repair completed Stephan boyce, DO [address] [place], [address], [facility] 06/14/2019 10:45:18 Imaging Results None recorded. Procedure Notes None recorded. Medical Equipment None Reported. Allergies Allergen ID Allergen Name Allergen Category Reaction Reaction Severity Criticality Documentation Date Start Date Code Code System Note Provider Name and Address Organization Details Recorded Time 1336 Ultram medicatio n Not available Not available Not available 02/06/2018 53480 6 [facility] 8 14:55:15 6153 clomipram ine medicatio n Not available Not available Not available 08/09/2022 2597 RxNorm LARRY ROSAS [address] [place], [address], [facility] 2 11:40:44 9804 prednison e medicatio n Not available Not available Not available 08/13/2025 8640 RxNorm Not Available prerna - External Data Service - prod 5 08:56:34 9805 tramadol medicatio n Not available Not available Not available 08/13/2025 28204 RxNorm Not Available prerna - External Data Service - prod 5 08:56:34 9808 chlorhexi dine medicatio n Not available Not available Not available 08/13/20252017 2358 RxNorm unrec ogniz ed react ion (text : Pruri tus (itch ing), code: [id number]) (from exter nal sourc e) Not Available prerna - External Data Service - prod 5 08:59:22 9810 chlorhexi dine gluconate medicatio n itching Not available Not available 08/13/2025201791 RxNorm Not Available prerna - External Data Service - prod 5 08:59:27 9811 tramadol hydrochlo ride medicatio n Not available Not available Not available 08/13/2025 71145 RxNorm unrec ogniz ed react ion (text : Unkno wn, code: [id number]) (from exter nal [facility] e) Not Available [place] - External Data Service - prod 5 08:59:27 9812 gabapenti n medicatio n palpitati ons Not available low 08/13/20252020 71951 RxNorm Not Available [facility] External Data Service - prod 5 09:01:09 [...] completed Not Available Not Available Not Available [place] 3 1200mg 1 per day 11/06 completed [...] and Address Organization Details Last Updated DateTime 5 157.48 cm 24.5 kg/m2 81814.3 8 g 74 /min 98 % 136/88 mm[Hg] Odette Godoy [facility] 13:49:50 Social History Question Answer Notes LastModified by Organizat ion Details LastModified Time Tobacco Smoking Status Former Smoker Sherrell Igel [facility] 02/06/2018 14:57:55 What Is Your Level Of Caffeine Consumption? Moderate 2 Cups Per Day Information not available 05/29/2018 What Was The Date Of Your Most Recent Tobacco Screening? 08/15/2025 [email or web address] Information not available 08/15/2025 Sex: Unknown Functional Status Question Answer Note LastModified by Organizat ion Details LastModified Time Do you or have you ever used any other forms of tobacco or nicotine? No [email or web address] Information not available 09/20/2023 What is your [...] History Condition Response Coronary Artery Disease N Other N Gout N Kidney Stones N Blood Diseases N Breast Cancer N Blood Transfusion N Depression N COPD N Lung Disease N Defects or Inherited Disease N Anxiety Disorder N Muscle, Joint, or Bone Problems N Obesity N Vision or Eye Problems N Arthritis N Polyps N Infertility N Mental Disorder N Cancer N Varicosities N Stroke N Endometriosis N Bladder or Kidney Problems N High Cholesterol N Liver Disease N Headaches N Fibromyalgia N Kidney Disease N Allergies/Hayfever N Heart Problems N Hospitalizations N Thyroid Problems N GI Problems N Skin Problems N Eating Disorder N Anemia N MRSA exposure N Constipation N Mental Illness N Ovarian Cancer N Diabetes N Seizures/Epilepsy N Tuberculosis N Congestive Heart Failure (CHF) N Eczema N Diverticulitis N Abuse/Domestic Violence N Asthma N Reflux/GERD N Hepatitis N [...] 50 mcg/0.25mL dose 10/06/2021 completed Not Available [facility] 4 09:28:12 COVID-19, mRNA, LNP-S, PF, 100 mcg/0.5mL dose or 50 mcg/0.25mL dose 12/11/2020 completed Not Available [facility] 4 09:28:12 COVID-19, mRNA, LNP-S, PF, 100 mcg/0.5mL dose or 50 mcg/0.25mL dose 01/08/2021 completed Not Available [facility] 4 09:28:12 Tdap 05/19/2020 completed Not Available [facility] 10/16/2023 09:28:13 Past Encounters Encounter ID Performer Location Encounter Start Date Encounter Closed Date Diagnosis/Indication Diagnosis SNOMED-CT Code Diagnosis ICD10 Code Diagnosis IMO Codes Diagnosis Note [id number] Stephan Bryson DO [facility] [address] [facility],[place] [address] 07/02/2025 13:37:47 07/02/2025 14:20:10 Depression screening 310914884 Z13.31 neg Essential hypertension 38986054 I10 switch to clonifine Female pat tern alopecia 9702889 L64.8 Hyperparathyroidism 6699 9008 E21.0 has been stable sees dr reddyoo gist Osteoporosis 58605227 M8 1.0 BMD is stable and shows onset of osteoporos is Health Concerns Section Related Observation LastModified by Organization Detai ls LastModified Time None Recorded Concern Status LastModified by Organization Details LastModified Time None Recorded Payers Encounter Date Sequence Insurance Name Policy Number Policy Mckinney Covered Member ID Mckinney Member ID Guarantor Name 07/02/2025 2 [place] Betty Phillips [id number] Betty Phillips 07/02/2025 1 [place] (MEDICARE REPLACEMENT PPO) [id number] Betty Phillips [id number] Betty Phillips Notes Date Note Type Note Provider Name and Address Organization Details Recorded Time 5 text/htm l Care Management - HypertensionReported by PatientHPIFor self care, patient reportsnot under emotional stress. For severity, patient reportssymptoms are improvinganddoes not interfere with daily activities. For associated symptoms, patient reportsno dizziness,no lightheadedness,no chest pain,no shortness of breath,no palpitations,no edema,no calf muscle cramps,no blurred vision,no confusion,no headaches, andno fatigue.ROS as noted in the HPI here for rechk has gained wgt with olmesartfrustrated wishes change Stephan Bryson, DO [address] [facility], [place], [address], [facility] 07/02/2025 14:13:12 OBGyn Episode No OBEpisode recorded.
--- OUTSIDE RECORDS SUMMARY | 2025-08-15 15:04 | XMS_ITS | Encounter Summary ---
Author Organization [facility] Address [address] [place] [address] [address] [place] [address] Phone Care Team Providers Care Continuous Churn Buttermaker Name Role Phone Stephan Day Meena BOYD Primary Care Provider [phone] Reason for Referral * Outpatient Procedure - Closed Specialty Diagnoses / Procedures Referred By Stacey urrutia Referred To Contact Radiology Diagnoses Syncope and collapse Procedures Adult Echo TTE Brook Landers PA [address] [facility] [place] [address] [place] [address] Phone: tel: fax: Referral ID Status Reason Start Date Expiration Date Visits Re quested Visits Authorized [id number] Closed 07/01/2024 07/01/2025 1 1 Encounter Details Date Type Department Care Team (Latest Contact Info) Description 06/28/2024 Transcribe Orders Virtual Department [address] [place] [address] Brook Landers PA [address] [facility] [place] [address] [place] [address] Encounter for screening mammogram for malignant neoplasm of breast (Primary Dx); Age-related osteoporosis without current pathological fracture; Syncope and collapse Social History Tobacco Use Types Packs/Day Years [...] documented as of this encounter Results * BD DXA AXIAL (SPINE) WITH HIP (12/27/2024 11:28 AM EDT) Anatomical Region Laterality Modality Bone Density Bone Density 12/27/2024 11:1 3 AM EDT Impressions 12/30/2024 11:05 AM EDT Interpretation: Osteoporosis. Narrative 12/30/2024 11:05 AM EDT Referred By: BROOK LANDERS Indications: Osteoporosis Scanner: [employer] A with serial# of [id number] located at [facility] Bone Density Scan (DXA) 12/27/24 Details of prior DXA scans are available by clicking View Full Report BMD T- Z- Skeletal Site gm/cm2 score score BMD Change Since Prior Scan ------ ----- ----- PA Spine (L1-L4) 0.728 -2.90 -1.10 -0.009 (stable) since 09/22/2022 Total Hip (Right) 0.669 -2.20 -0.90 -0.003 (stable) since 09/22/2022 Femoral Neck (Right) 0.539 -2.80 -1.20 -0.020 (stable) since 09/22/2022 ------ ----- ----- * Denotes significant change when >= 0.022 g/cm2 for the spine, 0.027 g/cm2 for the total hip, 0.029 g/cm2 for the femoral neck. Interpretation: Osteoporosis. Technical Quality: Imaging of all sites was of adequate quality. FRAX: A FRAX(r) score is not provided because the patient has osteoporosis, which is generally an indication for treatment. Reviewed By: Jorge L Hayes MD on 12/30/2024 11:05:07 Additional Information: -World Health Organization criteria classify adults based on lowest T-score at PA spine, hip or forearm: Normal (T-score >= -1.0), Osteopenia (T-score between -1 and -2.5), or Osteoporosis (T-score <= -2.5). At [facility], T-scores are compared to peak bone density of a young white gender matched reference population. - For premenopausal women and men under the age of 50, Z-scores (comparison to age, gender, and ethnicity matched reference population) are used: Above expected range for age (Z-score >= 2.0), Within expected range of age (Z-score 1.9 to -1.9), or Below expected range for age (Z-score <= -2.0). - The Bone Health and Osteoporosis Foundation recommends that treatment be considered in men aged more than 50 years and in postmenopausal women with ANY of the following: Prior hip or vertebral fractures; T-score of <= -2.5 at the PA spine or hip; or 10 year fracture probability by FRAX of >= 3% for the hip or >= 20% for major osteoporotic fracture. - The FRAX algorithm (https://www.sj.ac.uk/FRAX/tool.aspx) is designed to predict 10-year fracture risk in treatment-naive adults between the ages of 40 and 90. It is not intended to be used in those receiving pharmacologic osteoporosis treatment. - The TBS is derived from the texture of the DXA spine image and has been shown to be related to bone microarchitecture and fracture risk. This data provides information independent of BMD value. It adds to fracture risk assessment with a FRAX adjusted for TBS score. If your patient had a TBS and qualified for a FRAX score, the reported FRAX score has been adjusted for TBS. TBS Score Interpretation 1.350 and greater Normal bone microarchitecture 1.200 to 1.350 Partially degraded bone microarchitecture 1.200 and less Degraded bone microarchitecture - Including race/ethnicity in the generation of T- or Z-scores or in the FRAX calculation is complicated, and currently undergoing active review to ensure that we can give patients the best information on their risk of fracture. - Some prior studies may not be compatible with our comparison software. - Click on View Full Report to see subsequent pages with images and prior bone density results. Procedure Note Jorge L Hayes MD - 12/30/2024 Referred By: BROOK LANDERS Indications: Osteoporosis Scanner: [employer] A with serial# of [id number] located at [facility] Bone Density Scan (DXA) 12/27/24 Details of prior DXA scans are available by clicking View Full Report BMD T- Z- Skeletal Site gm/cm2 score score BMD Change Since Prior Scan ------ ----- PA Spine (L1-L4) 0.728 -2.90 -1.10 -0.009 (stable) since09/22/2022 Total Hip (Right) 0.669 -2.20 -0.90 -0.003 (stable) since09/22/2022 Femoral Neck (Right) 0.539 -2.80 -1.20 -0.020 (stable) since09/22/2022 ------ ----- * Denotes significant change when >= 0.022 g/cm2 for the spine, 0.027g/cm2 for the total hip, 0.029 g/cm2 for the femoral neck. Interpretation: Osteoporosis. Technical Quality: Imaging of all sites was of adequate quality. FRAX: A FRAX(r) score is not provided because the patient hasosteoporosis, which is generally an indication for treatment. Reviewed By: Jorge L Hayes MD on 12/30/2024 11:05:07 Additional Information: -World Health Organization criteria classify adults based on lowestT-score at PA spine, hip or forearm: Normal (T-score >= -1.0), Osteopenia (T-score between -1 and -2.5), or Osteoporosis (T-score <= -2.5). At [facility], T-scores are compared to peak bone density of a young white gender matched reference population. - For premenopausal women and men under the age of 50, Z-scores(comparison to age, gender, and ethnicity matched reference population) are used:Above expected range for age (Z-score >= 2.0), Within expected range of age (Z-score 1.9 to -1.9), or Below expected range for age (Z-score <= -2.0). - The Bone Health and Osteoporosis Foundation recommends that treatment be considered in men aged more than 50 years and in postmenopausal women with ANY of the following: Prior hip or vertebral fractures; T-score of <= -2.5 at the PA spine or hip; or 10 year fracture probability by FRAX of >= 3%for the hip or >= 20% for major osteoporotic fracture. - The FRAX algorithm (https://www.sj.ac.uk/FRAX/tool.aspx) is designed to predict 10-year fracture risk in treatment-naive adultsbetween the ages of 40 and 90. It is not intended to be used in those receiving pharmacologic osteoporosis treatment. - The TBS is derived from the texture of the DXA spine image and has been shown to be related to bone microarchitecture and fracture risk. This data provides information independent of BMD value. It adds to fracture risk assessment with a FRAX adjusted for TBS score. If your patient had a TBSand qualified for a FRAX score, the reported FRAX score has been adjusted for TBS. TBS Score Interpretation 1.350 and greater Normal bone microarchitecture 1.200 to 1.350 Partially degraded bone microarchitecture 1.200 and less Degraded bone microarchitecture - Including race/ethnicity in the generation of T- or Z-scores or in the FRAX calculation is complicated, and currently undergoing active review to ensure that we can give patients the best information on their risk of fracture. - Some prior studies may not be compatible with our comparison software. - Click on View Full Report to see subsequent pages with images andprior bone density results. IMPRESSION: Interpretation: Osteoporosis. Brook JUAREZ IMLeola BD BONE DENSITY DEXA Fi nal Result * TTE COMPREHENSIVE (07/17/2024 2:00 PM EDT) Body Surface Area 1.60 m2 Height 157 cm Weight 60 kg Systolic BP 134 mmHg Diastolic BP 93 mmHg Left Atrium Dimension Anterior-Posterior 29 15 - 40 mm Aortic Valve Mean Gradient 3 mmHg Aortic Valve Mean Gradient 3 mmHg Aortic Valve Time Velocity Integral 208.0 mm Aortic Valve Peak Velocity 130.0 cm/s Aortic Valve Peak Gradient 7 mmHg Aortic Sinus Diameter 25 <40 mm Ascending Aorta Diameter 28 <36 mm Inferior Vena Cava Diameter 14 <21 mm Interventricular Septum Thickness 8 6 - 11 mm Left Ventricle Internal Diameter End Diastole 28 37 - 52 mm Left Ventricle Internal Diameter End Systole 20 <35 mm Left Ventricular Outflow Tract Diameter 16.0 mm LVOT VTI REST 139.0 mm Left Ventricular Outflow Tract Velocity 0.9 m/s Left Ventricular Outflow Tract Gradient at Rest 3 mmHg Left Ventricular Posterior Wall Thickness 11 6 - 11 mm Ejection Fraction 60 50 - 75 Percent Mitral Valve A Wave Speed 94.3 cm/s Mitral Valve E Wave Speed 81.4 cm/s Right Ventricle Basal Diameter 27 25 - 41 mm Tricuspid Valve Peak Velocity 3.0 m/s Raw LV EF% 49 % Relative Wall Thickness 0.79 0.22 - 0.42 Aortic Valve Prosthetic Peak Gradient 7 mmHg Aortic Valve Sinus Index by BSA 16 mm/m2 Aorta Sinus Index by Height 1.59 cm/m Aorta Sinus CSA index by Height 3.13 cm2/m Ascending Aorta Index 18 mm/m2 Asc Aorta CSA Index by Height 3.92 cm2/m Right Ventricle to Right Atrium Pressure Gradient 36 mmHg Right Ventricle Peak Systolic Pressure (Assuming RAP 10) 46 mmHg MGB CV ECHO TV RVSP (ASSUMING RAP OF 5) 41 mmHg RVSP (Exclusive of RAP) 36 mmHg Ascending Aorta Index 18 mm Aortic Sinus Index 16 mm Ascending Aorta Diameter 18 mm Aortic Valve Sinus Index 1 16 19 - 27 mm AO ASC DIAM BSA INDEX 17.50 Right Ventricle Peak Systolic Pressure 39 mmHg Left Ventricle Ea Lateral Wave Speed 7.6 cm/s Right Ventricle TAPSE 23 >=17 mm MV E/E' Tissue Velocity Lateral 10.71 Right Ventricle Pulse Doppler S Wave 18.2 >=9.5 cm/s Left Ventricle E Wave Speed 81.4 cm/s Left Ventricle A Wave Speed 94.3 cm/s MV E/A ratio 0.9 Left Ventricle Ea Septal Wave Speed 7.6 cm/s MV E/e' septal 10.71 Left Ventricle E/e' Average 10.7 Right Atrium Area 11 cm2 Right Atrium Area index 7 cm2/m2 Right Atrium Pressure Estimated 3 mmHg Echo E/Ea 10.71 Anatomical Region Laterality Modality Heart Ultrasound Narrative 07/17/2024 3:24 PM EDT Images from the original result were not included. Normal LV size and function EF 60 to 65%. Normal RV size and function. Normal diastolic function for age. No significant valvular heart disease is seen. Compared to study from 2019, no significant change. Left Ventricle The left ventricle is normal in size. There is normal wall thickness. There is normal left ventricular systolic function. The LV ejection fraction is 60% (calculated via the single dimension method). The e' septal wave velocity is 7.6 cm/s. The e' lateral wave velocity is 7.6 cm/s. The average E/e' ratio is 10.7. Right Ventricle The right ventricle is normal in size. The RV basal dimension is 27 mm. There is normal right ventricular systolic function. TAPSE is 23 mm. RV S' wave is 18.2 cm/s. Left Atrium The left atrium is normal in size. The left atrial anterior-posterior dimension is 29 mm. There are normal flow patterns in the pulmonary vein. Right Atrium The right atrium is normal in size. The right atrial area is 11 cm2. The IVC is normal in size with normal inspiratory collapse. The IVC diameter is 14 mm. Mitral Valve The mitral valve appears normal. There is no mitral stenosis. There is trace mitral regurgitation. Tricuspid Valve The tricuspid valve appears normal. There is no tricuspid stenosis. There is trace tricuspid regurgitation. The RV systolic pressure was calculated at 39 mmHg (using TR peak velocity of 3.0 m/s and assuming an RA pressure of 3 mmHg). Mildly elevated pulmonary pressure. Aortic Valve The aortic valve is suboptimally visualized. There is no aortic stenosis. There is no aortic regurgitation. The visualized portions of the thoracic aorta appear normal in size. Pulmonic Valve The pulmonic valve appears normal. There is no pulmonic stenosis. There is no pulmonic regurgitation. Pericardium There is a small pericardial effusion. There is no echocardiographic evidence of tamponade. General Findings Technically adequate echocardiogram. Technique(s) used in the evaluation: Color flow Doppler and Spectral Doppler. The predominant rhythm during the study was sinus. Comparison Findings Compared to prior TTE on 11/15/2019, IAS/IVS The interatrial septum appears normal. Brook JUAREZ CV ECHO ORDERABLES Final Re sult documented in this encounter Visit Diagnoses Diagnosis Encounter for screening mammogram for malignant neoplasm of breast- Primary Age-related osteoporosis without current pathological fracture Syncope and collapse Syncope and collapse Encounter for screening mammogram for malignant neoplasm of breast Age-related osteoporosis without current pathological fracture documented in this encounter Care Teams Continuous Churn Buttermaker Relationship Specialty Start Date End Date Stephan Day DO PCP - General Internal Medicine 03/22/21 documented as of this encounter Additional Source Comments The information contained in this document represents components of the legal health record. It is not the complete legal health record.[facility]
--- OUTSIDE RECORDS SUMMARY | 2025-08-15 15:04 | XMS_ITS | Encounter Summary ---
Author Organization [facility] Address [address] [place] [address] Phone Care Team Providers Care Speech And Language Specialist Name Role Phone Stephan Day DO Primary Care Provider [phone] Encounter Details Date Type Department Care Team (Latest Contact Info) Description 11/06/2023 Ancillary Orders [facility] [address] [place] [address] Stephanie Bernal MD [address] [place] [address] Orthopedics & Sports Medicine, [place] [address] [email or web address] Osteoarthritis of left shoulder, unspecified osteoarthritis type (Primary Dx) Social History Tobacco Use [...] as of this encounter Plan of Treatment Pending Results Name Type Priority Associated Diagnoses Date /Time FL Guidance Needle Placement Non-Spine Imaging Routine Osteoarthritis of left shoulder, unspecified osteoarthritis type 11/28/2023 1:04 PM EST Scheduled Orders Name Type Priority Associated Diagnoses Orde r Schedule FL Guidance Needle Placement Non-Spine Imaging Routine Osteoarthritis of left shoulder, unspecified osteoarthritis type 1 Occurrences starting 11/06/2023 until 02/04/2024 documented as of this encounter Visit Diagnoses Diagnosis Osteoarthritis of left shoulder, unspecified osteoarthritis type- Primary documented in this encounter Care Teams Speech And Language Specialist Relationship Specialty Start Date End Date Stephan Day DO [email or web address] PCP - General Internal Medicine 03/22/21 documented as of this encounter Additional Source Comments The information contained in this document represents components of the legal health record. It is not the complete legal health record.[facility]
--- OUTSIDE RECORDS SUMMARY | 2025-08-15 15:04 | XMS_ITS | Encounter Summary ---
Author Organization [facility] Address [address] [place] [address] Phone Care Team Providers Care Legal Biller Name Role Phone Stephan Day Primary Care Provider [phone] Encounter Details Date Type Department Care Team (Late st Contact Info) Description 04/04/2024 Procedure Pass [facility], [address] [place] [address] Social History Tobacco Use Types Packs/Day Years [...] on filedocumented in this encounter Care Teams Legal Biller Relationship Specialty Start Date End Date MarleyStephan boyce Meena [email or web address] PCP - General Internal Medicine 03/22/21 documented as of this encounter Additional Source Comments The information contained in this document represents components of the legal health record. It is not the complete legal health record.[facility]
--- OUTSIDE RECORDS SUMMARY | 2025-08-15 15:04 | XMS_ITS | Encounter Summary ---
Author Organization [facility] Address [address] [place] [address] [place] [address] Phone Care Team Providers Care Shoveler Name Role Phone Stephan Day Primary Care Provider [phone] Encounter Details Date Type Department Care Team (Latest Contact Info) Description 11/03/2023 Transcribe Orders Virtual Department [address] [place] [address] Schuyler Tate MD [address] [place] [address] Family history of unspecified malignant neoplasm (Primary Dx) Social History Tobacco Use Types [...] this encounter Results * US Thyroid Gland (11/06/2023 3:53 PM EST) Anatomical Region Laterality Modality Neck, Head, Chest Ultrasound 11/07/2023 4:51 AM EST Impressions 11/07/2023 6:11 AM EST No nodule meeting TI-RADS criteria for follow-up imaging or tissue sampling. ACR TI-RADS assessment categories can be found at [email or web address].org/Clinical-Resources/Izuoifitk-[email or web address]/[email or web address]-[email or web address] Narrative 11/07/2023 6:11 AM EST US THYROID GLAND Referring clinician's provided indication for this examination in Epic: Outside Radiology Order; Family history of thyroid cancer. Also suspicion for hyperparathyroid. TECHNIQUE: Ultrasound of the thyroid. COMPARISON: US THYROID GLAND FINDINGS: Right Thyroid: The right lobe measures 4.5 cm in sagittal dimension. No significant change in 1.5 cm spongiform nodule in the mid gland (TR 1). Subcentimeter colloid cysts (TR 1). No right sided adenopathy is detected. Left Thyroid: The left lobe measures 4.7 cm in sagittal dimension. No nodule No left sided adenopathy is detected. Parathyroid: A parathyroid adenoma is not identified. Procedure Note Stephan Kern MD - 11/07/2023 US THYROID GLAND Referring clinician's provided indication for this examination in Epic:Outside Radiology Order; Family history of thyroid cancer. Also suspicionfor hyperparathyroid. TECHNIQUE: Ultrasound of the thyroid. COMPARISON: US THYROID GLAND FINDINGS: Right Thyroid: The right lobe measures 4.5 cm in sagittal dimension. No significant change in 1.5 cm spongiform nodule in the mid gland (TR1). Subcentimeter colloid cysts (TR 1). No right sided adenopathy is detected. Left Thyroid: The left lobe measures 4.7 cm in sagittal dimension. No nodule No left sided adenopathy is detected. Parathyroid: A parathyroid adenoma is not identified. IMPRESSION: No nodule meeting TI-RADS criteria for follow-up imaging or tissuesampling. ACR TI-RADS assessment categories can be found [email or web address]-Resources/[email or web address]-[email or web address] Schuyler Tate MD [facility] THYROID Final Result documented in this encounter Visit Diagnoses Diagnosis Family history of unspecified malignant neoplasm- Primary Family history of unspecified malignant neoplasm documented in this encounter Care Teams Shoveler Relationship Specialty Start Date End Date Stephan Day DO [email or web address] PCP - General Internal Medicine 03/22/21 documented as of this encounter Additional Source Comments The information contained in this document represents components of the legal health record. It is not the complete legal health record.[facility]
--- OUTSIDE RECORDS SUMMARY | 2025-08-15 15:04 | XMS_ITS | Clinical Summary ---
Author Organization [facility] Address [address] [place] [address] Care Team Providers Care Hand Mixer Name Role Phone Stephan Day Primary Care Provider [phone] Allergies Active Allergy Reactions Criticality Noted Date Comments Chlorhexidine Towelette Itching 11/13/2017 Tramadol Unknown 09/17/2017 Tramadol Hcl Unknown Medications buPROPion (WELLBUTRIN) 75 mg tablet TAKE ONE TABLET BY MOUTH EVERY DAY 90 tablet 3 3 Active cholecalciferol (VITAMIN D3) 1,250 mcg (50,000 unit) capsuleIndicati ons:Vitamin D deficiency Take 1 capsule (50,000 Units total) by mouth once a week. 12 capsule 4 Active olmesartan (BENICAR) 20 mg tablet Take 20 mg by mouth once a day. Active ketoconazole (NIZORAL) 2% shampoo APPLY TO THE AFFECTED AREA(S), LATHER, LEAVE IN PLACE FOR 5 MINUTES, AND THEN RINSE OFF WITH WATER ONCE DAILY Active baclofen (LIORESAL) 10 mg tablet Take 0.5 tablets (5 mg total) by mouth 2 times a day as needed for muscle spasms. 60 tablet 5 5 10/11/19 26 Active alendronate (FOSAMAX) 35 mg tablet TAKE 1 TABLET BY MOUTH ONCE WEEKLY ON EMPTY STOMACH AND WATER Active biotin 1 mg capsule Take by mouth. Activ e magnesium gluconate (MAGONATE) 27 mg magnesium (500 mg) tablet Take 1 tablet (27 mg of elemental magnesium total) by mouth once a day. 30 tablet 2 5 10/27/19 26 Active Active Problems Problem Noted Date Diagnosed Date Raynaud's phenomenon without gangrene 10/17/2024 Impaired functional mobility, balance, gait, and endurance 03/04/2024 Vitamin D deficiency 03/04/2024 Neurogenic bladder 03/08/2021 Anxiety and depression 06/11/2018 GERD (gastroesophageal reflux disease) 7 Sensory loss 01/30/2017 Memory difficulties 10/06/2016 Sleep disturbances 10/06/2016 Syncope 02/17/2015 Urinary tract infection 02/12/2014 Paresthesia and pain of extremity 02/12/2014 Chronic fatigue syndrome 02/12/2014 Multiple sclerosis 02/12/2014 Encounters Date Type Department Care Team Description 07/29/2025 10:00 AM [facility] Telehealth [facility] [address] [place] [phone] [employer] Cement Sheet Supervisor: Krista Hernandes, Multiple sclerosis (Primary Dx); Vitamin D deficiency; Memory difficulties 07/29/2025 Orders Only [facility] [address] [place] [phone] [employer] Sheet Supervisor: Gail Cuevas Provider, MD Felix from Last 3 Months Social History Tobacco Use Types Packs/Day Years Used Date Smoking Tobacco: Former Smokeless Tobacco: Never Tobacco Cessation:Counseling Given: Not Answered Comments:: Alcohol Use Standard Drinks/Week Comments Not Currently 0 (1 standard drink = 0.6 oz pur e alcohol) Comments Unknown Sex and Gender Information Value Date Recorded Sex Assigned at Female 12/05/2021 12:26 PM EDT Legal Sex Female 12:40 PM EDT Gender Identity Choose not to disclose 12:26 PM EDT Sexual Orientation Straight 12/05/2021 12 :26 PM EDT Last Filed Vital Signs Vital Sign Reading Time Taken Comments Blood Pressure 131/82 04/29/2025 9:54 AM EDT Pulse 65 04/29/2025 9:54 AM EDT Temperature 36.3 C (97.3 F) 03/08/2022 2:05 PM EDT Respiratory Rate 18 03/08/2021 11:01 AM EDT Oxygen Saturation 99% 04/29/2025 9:54 AM EDT Inhaled Oxygen Concentration - - Weight 59.1 kg (130 lb 6.4 oz) 07/11/2022 10:57 AM EDT Height 158.8 cm (5' 2.5 ) 04/29/2019 9:48 AM EDT Body Mass Index 23.47 04/29/2019 9:48 AM EDT Plan of Treatment Upcoming Encounters Date Type Department Care Team (Late st Contact Info) Description 11/05/2025 3:00 PM EST Office Visit [facility] [address] [place] [phone] [employer] Sheet Supervisor: Gail Cuevas Health Maintenance Due Date Last Done Comments Cologuard 1960 Colon Cancer Screening 1960 Colonoscopy 1960 FOBT / Fit Test 1960 Hepatitis C Screening [address] Lung Cancer Screening (Baseline) 2008 Pneumococcal Vaccine: 50+ Years (1 of 1 - PCV) 2008 Zoster Vaccines (1 of 2) 2008 Mammogram 05/17/2024 05/17/2022, 04/26, 02/23/2021, Additional history exists Alcohol/Substance Use Screening 09/25/2024 Depression Screening and Follow-Up 09/25/2024 Health Care Proxy Review 09/25/2024 Social Drivers of Health Annual Screening 09/25/2024 Influenza Vaccine (#1) 2025 COVID-19 Vaccine ( season) 2025 10/06/2021, 01/08/2021, 12/11/2020 Fall Risk Screening 10/16/2025 10/16/2024 DTaP,Tdap,and Td Vaccines (2 - Td or Tdap) 05/19/2030 05/19/2020 RSV Vaccine (60+ years old and patients) (1 - 1-dose 75+ series) 2033 Osteoporosis Screening Completed 12/27/2024, 2021 Hepatitis B Vaccines Aged Out No long er eligible based on patient's age to complete this topic Procedures * Due to [place] state law, this organization might not be sharing negative HIV tests. Procedure Name Priority Date/Time Associated Diagnosis Comments LAB - SCANNED Routine 07/29/2025 11:35 AM EST from Last 3 Months Results * Due to [place] state law, this organization might not be sharing negative HIV tests. * LAB - SCANNED (07/29/2025 11:35 AM EST) us Unknown Provider MD LAB HISTORICAL RESULTS Final Result from Last 3 Months Insurance BCBS MCR REPLACE PPO HSNO/FREE [facility] Care Teams Hand Mixer Relationship Specialty Start Date End Date Stephan Day [address] [place] [phone] PCP - General 04/13/17
--- OUTSIDE RECORDS SUMMARY | 2025-08-15 15:04 | XMS_ITS | Encounter Summary ---
Author Organization [facility] Address [address] [place] [address] Phone Care Team Providers Care Registered Dental Assistant Rda Name Role Phone Stephan Day Primary Care Provider [phone] Encounter Details Date Type Department Care Team (Latest Contact Info) Description 04/30/2025 Transcribe Orders Virtual Department [address] [place] [address] Jg Fairchild MD [address] [place] [phone] MS (multiple sclerosis) (Primary Dx) Social History [...] sclerosis documented in this encounter Care Teams Registered Dental Assistant Rda Relationship Specialty Start Date End Date Stephan Day DO [email or web address] PCP - General Internal Medicine 03/22/21 documented as of this encounter Additional Source Comments The information contained in this document represents components of the legal health record. It is not the complete legal health record.[facility]
--- OUTSIDE RECORDS SUMMARY | 2025-08-15 15:04 | XMS_ITS | Encounter Summary ---
Author Organization [facility] Address [address] [place] [phone] Phone Care Team Providers Care Veneer Stacker Name Role Phone Stephan Day Primary Care Provider [phone] Encounter Details Date Type Department Care Team (Late st Contact Info) Description 04/04/2024 Procedure Pass [facility], [address] [place] [address] Social History Tobacco Use Types Packs/Day Years [...] on filedocumented in this encounter Care Teams Veneer Stacker Relationship Specialty Start Date End Date MarleyStephan boyce Meena [email or web address] PCP - General Internal Medicine 03/22/21 documented as of this encounter Additional Source Comments The information contained in this document represents components of the legal health record. It is not the complete legal health record.[facility]
--- OUTSIDE RECORDS SUMMARY | 2025-08-15 15:04 | XMS_ITS | Encounter Summary ---
Author Organization [facility] Address [address] [place] [address] Phone Care Team Providers Care Traffic Workforce Representative Name Role Phone Stephan Day Primary Care Provider [phone] Reason for Referral * Hospital - Outpatient - Closed Specialty Diagnoses / Procedures Referred By Stacey urrutia Referred To Contact Radiology Diagnoses Hyperparathyroidism Procedures NM Parathyroid Scan with SPECT Schuyler Tate MD Phone: tel: fax: Referral ID Status Reason Start Date Expiration Date Visits Re quested Visits Authorized [id number] Closed 10/19/2023 2 2 Encounter Details Date Type Department Care Team (Latest Contact Info) Description 10/19/2023 Transcribe Orders Virtual Department [address] [place] [address] Schuyler Tate MD [address] [place] [address] Hyperparathyroidism (Primary Dx) Social History Tobacco Use Types [...] documented as of this encounter Results * NM Parathyroid Scan with SPECT (11/03/2023 2:21 PM EST) Anatomical Region Laterality Modality Neck, Head, Esophagus Nuclear Me dicine 11/04/2023 12:3 9 AM EST Impressions 11/04/2023 12:43 AM EST Focal retention of radiotracer in the region of the right thyroid lobe which could reflect a candidate parathyroid adenoma or false positive uptake within the known right lower lobe thyroid nodule. Narrative 11/04/2023 12:43 AM EST NM PARATHYROID SCAN WITH SPECT Parathyroid Scan w SPECT CT COMPARISON: Ultrasound thyroid 01/16/2023 TECHNIQUE: 25.3 mCi technetium 99m sestamibi was injected. Planar imaging of the neck and chest was performed immediately and at approximately 2 hours. SPECT images of the neck and chest were obtained. FINDINGS: Immediate planar images demonstrate asymmetric uptake to the thyroid, right slightly greater than left. Delayed planar images show a slightly asymmetric area of uptake in the right thyroid lobe. SPECT images confirm a focal area of asymmetric uptake in the region of the right thyroid. There is no ectopic focal uptake. There is expected physiologic uptake in the salivary glands, myocardium, and biliary system. Procedure Note Liz Queen MD - 11/04/2023 NM PARATHYROID SCAN WITH SPECT Parathyroid Scan w SPECT CT COMPARISON: Ultrasound thyroid 01/16/2023 TECHNIQUE: 25.3 mCi technetium 99m sestamibi was injected. Planar imaging of theneck and chest was performed immediately and at approximately 2 hours.SPECT images of the neck and chest were obtained. FINDINGS: Immediate planar images demonstrate asymmetric uptake to the thyroid,right slightly greater than left. Delayed planar images show a slightly asymmetric area of uptake in theright thyroid lobe. SPECT images confirm a focal area of asymmetric uptake in the region ofthe right thyroid. There is no ectopic focal uptake. There is expected physiologic uptake in the salivary glands, myocardium,and biliary system. IMPRESSION: Focal retention of radiotracer in the region of the right thyroid lobewhich could reflect a candidate parathyroid adenoma or false positiveuptake within the known right lower lobe thyroid nodule. Schuyler Tate MD [facility] [place] ENDOCRINE Final Result documented in this encounter Visit Diagnoses Diagnosis Hyperparathyroidism- Primary Hyperparathyroidism, unspecified Hyperparathyroidism Hyperparathyroidism, unspecified documented in this encounter Care Teams Traffic Workforce Representative Relationship Specialty Start Date End Date Stephan Day DO [email or web address] PCP - General Internal Medicine 03/22/21 documented as of this encounter Additional Source Comments The information contained in this document represents components of the legal health record. It is not the complete legal health record.[facility]
--- OUTSIDE RECORDS SUMMARY | 2025-08-15 15:04 | XMS_ITS | Encounter Summary ---
Author Organization [facility] Address [address] [place] [phone] Phone Care Team Providers Care Airframe And Powerplant Mechanic Name Role Phone Stephan Day Primary Care Provider [phone] Encounter Details Date Type Department Care Team (Late st Contact Info) Description 07/01/2024 Procedure Pass [facility] [address] [place] [address] Social History Tobacco Use Types Packs/Day Years [...] on filedocumented in this encounter Care Teams Airframe And Powerplant Mechanic Relationship Specialty Start Date End Date Stephan Day DO [email or web address] PCP - General Internal Medicine 03/22/21 documented as of this encounter Additional Source Comments The information contained in this document represents components of the legal health record. It is not the complete legal health record.[facility]
--- OUTSIDE RECORDS SUMMARY | 2025-08-15 15:05 | XMS_ITS | Encounter Summary ---
Author Organization [facility] Address [address] [place] [address] Care Team Providers Care Salvage Mend Worker Name Role Phone Stephan Day Primary Care Provider [phone] Reason for Visit * Reason Onset Date Comments [email or web address] 09/07/2022 Encounter Details Date Type Department Care Team (Late st Contact Info) Description 09/07/2022 Telephone [facility] [address] [place] [address] [phone] Telephone Intake, Staff [email or web address] Social History Tobacco Use Types Packs/Day Years Used Date Smoking Tobacco: Former Smokeless Tobacco: Never Comments:: Alcohol Use Standard Drinks/Week Comments Not Currently 0 (1 standard drink = 0.6 oz pur e alcohol) Comments Unknown Sex and Gender Information Value Date Recorded Sex Assigned at Female 12/05/2021 12:26 PM EDT Legal Sex Female 12:40 PM EDT Gender Identity Choose not to disclose 12:26 PM EDT Sexual Orientation Straight 12/05/2021 12 :26 PM EDT documented as of this encounter Miscellaneous Notes * Telephone Encounter - Michelle Gross - 09/07/2022 4:07 PM EST Wilber I called patient to find out what location she would like to go to for her MRI's She stated she would like to hold of on getting them done until next fall. Sending FYI to provider. Thank you Milton ok to postpone MRI's until next fall Thanks michelle documented in this encounter Plan of Treatment Upcoming Encounters Date Type Department Care Team (Late st Contact Info) Description 11/05/2025 3:00 PM EST Office Visit [facility] [address] [place] [phone] Customer Success Representative: Gail Cuevas documented as of this encounter Visit Diagnoses Not on filedocumented in this encounter Care Teams Salvage Mend Worker Relationship Specialty Start Date End Date Stephan Day [address] [place] [phone] PCP - General 04/13/17 documented as of this encounter
--- OUTSIDE RECORDS SUMMARY | 2025-08-15 15:05 | XMS_ITS | Clinical Summary ---
Author Organization [facility] Address [address] [place] [phone] Phone Care Team Providers Care Pipe Fitter Apprentice Name Role Phone Stephan Day Primary Care Provider [phone] Allergies Active Allergy Reactions Criticality Noted Date Comments Chlorhexidine Towelette Itching 11/13/2017 Clomipramine Unknown 01/27/2023 Gabapentin Palpitations Low 03/10/2021 Prednisone 01/27/2023 Tramadol Nausea and/or Vomiti ng,Nausea And Vomiting,Unknown 09/17/2017 Medications interferon beta-1b (BETASERON) 0.3 mg Kit Inject 0.22 mg under the skin every other day. Active biotin 10,000 mcg Cap Take by mouth. Activ e buPROPion (WELLBUTRIN) 75 MG immediate release tablet 37.5 mg. 8 Active gbjjy-3-siv-epa- dpa-fish oil 1,050-1,200 mg Cap [place] 3 1200mg 1 per day Active cholecalciferol (VITAMIN D3) 2,000 unit capsule Vitamin D3 2,000 unit capsule Take by oral route. Active ascorbic acid, vitamin C, (VITAMIN C) 250 MG tablet Take 250 mg by mouth daily. Active propranoloL (INDERAL LA) 80 mg 24 hr capsule Take 80 mg by mouth daily. 0 Active LORazepam (ATIVAN) 0.5 MG tablet lorazepam 0.5 mg tablet TAKE ONE TABLET BY MOUTH THREE TIMES A DAY NEEDED FOR 10 DAYS Active cyanocobalamin, vitamin B-12, 2,[address] 2,500 mcg under the tongue daily. Active acetaminophen (TYLENOL) 325 mg tablet Take 2 tablets (650 mg total) by mouth every 4 (four) hours as needed for mild pain. 0 1 Active ibuprofen (ADVIL,MOTRIN) 200 MG tablet Take 2 tablets (400 mg total) by mouth every 6 (six) hours as needed for pain (specific location in comments). 1 Active docusate sodium (COLACE) 100 MG capsule Take 1 capsule (100 mg total) by mouth 2 (two) times a day. 1 Active Additional Information Patient taking differently:100 mg OralDaily as needed, Reported on 06/26/2022 fish,bora,flax oils-om3,6,9no1 1,200 mg Cap Active interferon beta-1a, albumin, (REBIF) 22 mcg/0.5 mL subcutaneous injection syringe Inject 22 mcg under the skin 3 (three) times a week. 0 Active mag hydrox/aluminum hyd/simeth (MYLANTA DOUBLE-STRENGTH ORAL) Mylanta Active GAVILYTE-G 236-22.74-6.74 -5.86 gram solution 2 Active metroNIDAZOLE (METROCREAM) 0.75 % cream Active amino acids Powd Take by mouth daily. Active cycloSPORINE (RESTASIS) 0.05 % suspension ADMINISTER 1 DROP INTO BOTH EYES 2 TIMES A DAY 3 Active olmesartan (BENICAR) 40 mg tablet 4 Active hydroCHLOROthiaz gloria (HYDRODIURIL) 25 MG tablet Take 1 tablet by mouth every morning. 4 Active ketoconazole (NIZORAL) 2 % shampoo APPLY TO THE AFFECTED AREA(S), LATHER, LEAVE IN PLACE FOR 5 MINUTES, AND THEN RINSE OFF WITH WATER ONCE DAILY Active triamcinolone acetonide 0.1 % ointment Apply topically 2 (two) times a day. 30 g 4 Active Active Problems Problem Noted Date Diagnosed Date History of fall 03/10/2021 Impairment of balance 03/10/2021 Quadriceps tendonitis 03/10/2021 Status post laparoscopic cholecystectomy 021 Elevated liver function tests 10/13/2020 Calculus of gallbladder with acute on chronic cholecystitis without obstruction 05/07/2020 Bilateral optic neuritis 01/28/2019 023 Incarcerated right inguinal hernia 10/24/2017 Assessment & Plan (10/24/2017 4:45 PM EST): Patient with an incarcerated right inguinal hernia. Plan is for open repair with mesh. I had a conversation with the patient today with regard to hernia repair surgery. The risks and benefits of hernia repair surgery including but not limited to infection, bleeding, chronic pain, recurrence, scar have been explained to the patient. The patient understands and wishes to proceed. She would like to see see anesthesia upfront when meds and timing may be discussed with the doctors there as the meds may alter her wound healing. She has been taking interferon for many years. Multiple sclerosis Assessment & Plan (10/24/2017 4:07 PM EST): The patient's MS may affect the presenting issue of surgical procedure (s) and may increase the risk of slow healing wound (s), infection (s), kidney, lung and/or heart problems. Stable and/or controlled chronic conditions may reduce complications associated with your chronic condition (s). Neuropathy Depression Family History Medical History Relation Comments Colon cancer Father Heart disease Father Breast cancer Maternal Grandmother Cancer Maternal Grandmother Relation Status Comments Father Maternal Grandmother Social History Tobacco Use Types Packs/Day Years [...] not to disclose 2019 7:04 PM EST Last Filed Vital Signs Vital Sign Reading Time Taken Comments Blood Pressure 134/93 03/01/2024 2:55 PM EDT Pulse 82 03/01/2024 2:55 PM EDT Temperature 36.8 C (98.2 F) 03/01/2024 2:55 PM EDT Respiratory Rate 16 03/01/2024 2:55 PM EDT Oxygen Saturation 98% 03/01/2024 2:55 PM EDT Inhaled Oxygen Concentration - - Weight 59.9 kg (132 lb) 04/24/2024 11:37 AM EDT Height 157.5 cm (5' 2 ) 04/24/2024 11:37 AM EDT Body Mass Index 24.14 04/24/2024 11:37 AM EDT Plan of Treatment Health Maintenance Due Date Last Done Comments DEPRESSION SCREENING 1970 SMOKING Hx and SMOKELESS TOBACCO SCREENING 1971 HEPATITIS C SCREENING 1976 COLOGUARD 2003 COLONOSCOPY 2003 COLORECTAL CANCER SCREENING 2003 FIT TEST 2003 FOBT 2003 SIGMOIDOSCOPY 2003 VIRTUAL COLONOSCOPY 2003 PNEUMOCOCCAL VACCINES (50+ years) (1 of 1 - PCV) 2008 ZOSTER VACCINES (1 of 2) 2008 MAMMOGRAM 05/17/2024 05/17/2022, 0609/2020, 05/24/2019 INFLUENZA VACCINE (#1) 2025 COVID-19 VACCINE ( season) 2025 10/06/2021, 01/08/2021, 12/11/2020 CREATININE LEVEL 07/28/2026 07/28/2025, 09/2023, 10/03/2023, Additional history exists POTASSIUM LEVEL 07/28/2026 07/28/2025, 080 09/2023, 10/03/2023, Additional history exists LIPID PANEL 10/03/2028 10/03/2023, 08/26, 09/20/2021 Adult Td,Tdap Booster 05/19/2030 05/19/2020 RSV VACCINE (1 - 1-dose 75+ series) 2033 OSTEOPOROSIS SCREENING INITIAL (ONE-TIME) Completed 12/27/2024, 09/22/2022, 05/07/2019 HEPATITIS A VACCINES Aged Out No long er eligible based on patient's age to complete this topic HIB VACCINES Aged Out No longer eligi ble based on patient's age to complete this topic MENINGOCOCCAL VACCINES (ACWY) Aged Out No longer eligible based on patient's age to complete this topic MENINGOCOCCAL VACCINES (B) Aged Out N o longer eligible based on patient's age to complete this topic Medical Devices Implanted Type Area Motorcycle Tester Device Identifier Shelf Expiration Date Model / Serial / Lot Mesh Synthetic 10cmx2.54cm Abdominal Non Absorbable Rectangle Polypropylene Prolene Bx/6ea - [id number] Implanted:Qty: 1 on 11/13/2017 by Carmenza Serrano MD at [facility] Right: Groin GU[employer]LE [employer] / DIVISION OF J 07/25/2022 [id number] / / [id number] Procedures Procedure Name Priority Date/Time Associated Diagnosis Comments URINE SEDIMENT Routine 07/28/2025 3:48 PM EST Multiple sclerosis, relapsing-remitting URINALYSIS WITH REFLEX TO URINE CULTURE Routine 07/28/2025 3:48 PM EST Multiple sclerosis, relapsing-remitting CBC AND DIFFERENTIAL Routine 07/28/2025 3:21 PM EST Multiple sclerosis, relapsing-remitting NEUROFILAMENT LIGHT CHAIN, PLASMA Routine 07/28/2025 3:21 PM EST Multiple sclerosis, relapsing-remitting FOLATE Routine 07/28/2025 3:21 PM EST Multiple sclerosis, relapsing-remitting VITAMIN B12 Routine 07/28/2025 3:21 PM EST Multiple sclerosis, relapsing-remitting THYROID STIMULATING HORMONE (TSH) Routine 07/28/2025 3:21 PM EST Multiple sclerosis, relapsing-remitting CBC AND DIFFERENTIAL Routine 07/28/2025 3:21 PM EST Multiple sclerosis, relapsing-remitting COMPREHENSIVE METABOLIC PANEL (CMP) Routine 07/28/2025 3:21 PM EST Multiple sclerosis, relapsing-remitting BD DXA AXIAL (SPINE) WITH HIP Routine 12/27/2024 11:28 AM EDT Encounter for screening mammogram for malignant neoplasm of breast Age-related osteoporosis without current pathological fracture LIPID PANEL Routine 10/03/2023 8:18 AM EST Essential hypertension, malignant BI MAMMOGRAM SCREENING WITH TOMOSYNTHESIS WITH CAD (BILATERAL) Routine 05/17/2022 10:59 AM EDT Breast screening from Last 3 Months or Most Recently Relevant to Health Maintenance Results * (ABNORMAL) Urinalysis with Reflex to Urine Culture (07/28/2025 3:48 PM EST) Color Yellow Yellow 07/28/2025 8:01 PM [facility] Clarity Clear Clear 07/28/2025 8:01 PM [facility] Glucose Negative Negative 07/28/2025 8:01 PM [facility] Bilirubin Urine Negative Negative 8:01 PM [facility] Ketone Urine Negative Negative 07/28/2025 8:01 PM [facility] Specific [place] 1.010 1.001 - 1.035 07/28/2025 8:01 PM [facility] Blood Negative Negative 07/28/2025 8:01 PM [facility] pH 6.0 5.0 - 8.0 07/28/2025 8:01 PM [facility] Protein Negative Negative 07/28/2025 8:01 PM [facility] Nitrites Negative Negative 07/28/2025 8:01 PM [facility] Leukocyte Esterase 2+(A) Negative 07/28/2025 8:01 PM [facility] Urobilinogen Negative Negative 07/28/2025 8:01 PM [facility] Urine (Urine, Voided) Non-Blood Collection / Unknown 07/28/2025 3:48 PM EST 07/28/2025 3:48 PM EST us Jg Fairchild MD LAB URINE ORDERABLES Final Result [address] [address] * (ABNORMAL) Urine Sediment (07/28/2025 3:48 PM EST) WBC 6-9 0 - 9 /hpf 07/28/2025 7:56 PM [facility] RBC 0-2 0 - 2 /hpf 07/28/2025 7:56 PM [facility] Squamous Epithelial Cells 1-2(A) Not Present /hpf 07/28/2025 7:56 PM [facility] Transitional Epithelial Cells 3-5(A) Not Present /hpf 07/28/2025 7:56 PM [facility] Urine (Urine, Voided) Non-Blood Collection / Unknown 07/28/2025 3:48 PM EST 07/28/2025 3:48 PM EST us Jg Fairchild MD LAB URINE ORDERABLES Final Result Performing Organization Address City/[facility]/ZIP Co de Phone Number [address] [address] * (ABNORMAL) Comprehensive Metabolic Panel (CMP) (07/28/2025 3:21 PM EST) Sodium 141 136 - 145 mmol/L 07/28/2025 7:50 PM [facility] Potassium 3.7 3.4 - 5.1 mmol/L 07/28/2025 7:50 PM [facility] Chloride 103 98 - 107 mmol/L 07/28/2025 7:50 PM [facility] CO2 27 20 - 31 mmol/L 07/28/2025 7:50 PM [facility] Anion Gap 11 3 - 17 mmol/L 07/28/2025 7:50 PM [facility] BUN 19 6 - 23 mg/dL 07/28/2025 7:50 PM [facility] Creatinine 0.80 0.50 - 1.00 mg/dL 07/28/2025 7:50 PM [facility] eGFR 81 >59 mL/min/1.7 3m2 07/28/2025 7:50 PM [facility] Comment:Estimated glomerular filtration rate calculated using the CKD-EPI refit equation. Glucose 94 70 - 99 mg/dL 07/28/2025 7:50 PM [facility] Calcium 10.7(H) 8.5 - 10.5 mg/dL 07/28/2025 7:50 PM [facility] AST 21 <33 U/L 07/28/2025 7:50 PM [facility] ALT 28 <34 U/L 07/28/2025 7:50 PM [facility] Alkaline Phosphatase 93 40 - 130 U/L 07/28/2025 7:50 PM [facility] Bilirubin, Total 0.3 0.0 - 1.2 mg/dL 07/28/2025 7:50 PM [facility] Total Protein 7.0 6.4 - 8.3 g/dL 07/28/2025 7:50 PM [facility] Albumin 4.4 3.5 - 5.2 g/dL 07/28/2025 7:50 PM [facility] Globulin 2.6 1.9 - 4.1 g/dL 07/28/2025 7:50 PM [facility] Blood (Blood) Venipuncture / Unknown 07/28/2025 3:21 PM EST 07/28/2025 3:22 PM EST us Jg Fairchild MD LAB BLOOD BKR ORDERABLES Fi nal Result [facility] [address] [place] [address] * CBC and Differential (07/28/2025 3:21 PM EST) WBC 8.40 4.00 - 11.00 K/uL 07/28/2025 6:59 PM [facility] RBC 4.80 4.00 - 5.20 M/uL 07/28/2025 6:59 PM [facility] Hemoglobin 13.9 12.0 - 16.0 g/dL 07/28/2025 6:59 PM [facility] Hematocrit 43.5 36.0 - 46.0 % 07/28/2025 6:59 PM [facility] MCV 90.6 80.0 - 100.0 fL 07/28/2025 6:59 PM [facility] MCH 29.0 27.0 - 31.0 pg 07/28/2025 6:59 PM [facility] MCHC 32.0 32.0 - 36.0 g/dL 07/28/2025 6:59 PM [facility] MPV 9.9 8.4 - 12.0 fL 07/28/2025 6:59 PM [facility] RDW-CV 12.6 11.5 - 14.5 % 07/28/2025 6:59 PM [facility] PLT 250 150 - 450 K/uL 07/28/2025 6:59 PM [facility] Neutrophils 61.3 % 07/28/2025 6:59 PM [facility] Lymphocytes 28.1 % 07/28/2025 6:59 PM [facility] Monocytes 8.5 % 07/28/2025 6:59 PM [facility] Eosinophils 1.1 % 07/28/2025 6:59 PM [facility] Basophils 0.6 % 07/28/2025 6:59 PM [facility] Imm Grans 0.4 % 07/28/2025 6:59 PM [facility] NRBC 0.0 <=0.0 /100 WBCs 07/28/2025 6:59 PM [facility] Absolute Neutrophils 5.16 1.92 - 7.60 K/uL 07/28/2025 6:59 PM [facility] Absolute Lymphocytes 2.36 0.72 - 4.10 K/uL 07/28/2025 6:59 PM [facility] Absolute Monocytes 0.71 0.16 - 1.10 K/uL 07/28/2025 6:59 PM [facility] Absolute Eosinophils 0.09 0.00 - 0.50 K/uL 07/28/2025 6:59 PM [facility] Absolute Basophils 0.05 0.00 - 0.15 K/uL 07/28/2025 6:59 PM EST [facility] Absolute Imm Grans 0.03 0.00 - 0.09 K/uL 07/28/2025 6:59 PM EST [facility] Absolute NRBC 0.00 <=0.00 K cells/uL 07/28/2025 6:59 PM EST [facility] Absolute Neutrophils 5.16 1.92 - 7.60 K/uL 07/28/2025 6:59 PM EST [facility] Comment:Automated cell count . Manual ANC may differ if performed. Diff Type Auto 07/28/2025 6:59 PM EST [facility] Blood (Blood) Venipuncture / Unknown 07/28/2025 3:21 PM EST 07/28/2025 3:22 PM EST us Jg Fairchild MD LAB BLOOD BKR ORDERABLES Fi nal Result [address] [address] * Neurofilament Light Chain, Plasma (07/28/2025 3:21 PM EST) NEUROFILAMENT LIGHT CHAIN, P 12.3 < or = 32.7 pg/mL 07/30/2025 1:58 PM EST [facility] Comment: As of 2024, [facility] [employer] has updated the Neurofilament Light Chain (NfL) methodology. If patient is undergoing serial monitoring of NfL levels, rebaselining by requesting that this sample also be run on the previous assay method for comparison purposes is recommended. Rebaseline of this sample at no charge will be available until 11/21/2025 and the rebaseline result will be added to this report. Contact [facility] [employer] at to request this service. For [facility] patients, call [phone]. ADDITIONAL INFORMATION The testing method is a chemiluminescent enzyme immunoassay for the quantitative determination of NfL in plasma manufactured by [employer] and performed on the [employer] analyzer. Values obtained with different methods may be different and cannot be used interchangeably. This test was developed and its performance characteristics determined by [facility] in a manner consistent with CLIA requirements. It has not been cleared by the [place] Food and Drug Administration. Blood (Blood) Venipuncture / Unknown 07/28/2025 3:21 PM EST 07/28/2025 3:22 PM EST Jg Fairchild MD LAB BLOOD BKR ORDERABLES Fi nal Result PRISCILLA GOMEZ) [facility] [address] [phone] * Thyroid Stimulating Hormone (TSH) (07/28/2025 3:21 PM EST) TSH 0.65 0.40 - 5.00 uIU/mL 07/28/2025 7:50 PM EST [facility] Blood (Blood) Venipuncture / Unknown 07/28/2025 3:21 PM EST 07/28/2025 3:22 PM EST Jg Fairchild MD LAB BLOOD BKR ORDERABLES Fi nal Result Performing Organization Address City/[facility]/ZIP Co de Phone Number [address] [address] * Folate (07/28/2025 3:21 PM EST) Folic Acid 7.6 >4.7 ng/mL 07/28/2025 8:09 PM EST [facility] Blood (Blood) Venipuncture / Unknown 07/28/2025 3:21 PM EST 07/28/2025 3:22 PM EST Jg Fairchild MD LAB BLOOD BKR ORDERABLES Fi nal Result [address] [address] * Vitamin B12 (07/28/2025 3:21 PM EST) Vitamin B12 291 232 - 1,245 pg/mL 07/28/2025 8:08 PM EST [facility] Blood (Blood) Venipuncture / Unknown 07/28/2025 3:21 PM EST 07/28/2025 3:22 PM EST us Jg Fairchild MD LAB BLOOD BKR ORDERABLES Fi nal Result Performing Organization Address [facility]/ZIP Co de Phone Number [address] [address] * BD DXA AXIAL (SPINE) WITH HIP (12/27/2024 11:28 AM EDT) Anatomical Region Laterality Modality Bone Density Bone Density 12/27/2024 11:1 3 AM EDT Impressions 12/30/2024 11:05 AM EDT Interpretation: Osteoporosis. Narrative 12/30/2024 11:05 AM EDT Referred By: YEMI WHITFIELD Indications: Osteoporosis Scanner: Bureaux A Partager A with serial# of [id number] located at [facility] Bone Density Scan (DXA) 12/27/24 Details of [...] -2.5), or Osteoporosis (T-score <= -2.5). At [facility], T-scores are compared to peak bone density [...] L Hayes MD - 12/30/2024 Referred By: YEMI WHITFIELD Indications: Osteoporosis Scanner: Bureaux A Partager A with serial# of [id number] located at [facility] Bone Density Scan (DXA) 12/27/24 [...] -2.5), or Osteoporosis (T-score <= -2.5). At [facility], T-scores are compared to peak bone density [...] andprior bone density results. IMPRESSION: Interpretation: Osteoporosis. us Yemi JUAREZ IM BD BONE DENSITY DEXA nal Result * (ABNORMAL) Lipid panel (10/03/2023 8:18 AM EST) HDL 66 mg/dL [facility] Comment: Interpretation <40 mg/dL: Low HDL cholesterol (major risk factor for CHD) Greater than or equal to 60 mg/dL: High HDL cholesterol ( negative risk factor for CHD) HDL - cholesterol is affected by a number of factors, e.g. smoking, excerise, hormones, sex and age. CHOLESTEROL 197 0 - 240 mg/dL [facility] TRIGLYCERIDES 75 30 - 160 mg/dL [facility] LDL 116 50 - 129 mg/dL [facility] Comment: LDL levels in terms of risk for coronary heart disease: <100 mg/dL: Optimal 100-129 mg/dL: Near or above optimal 130-159 mg/dL: Borderline high 160-189 mg/dL: High >190 mg/dL: Very High CARDIAC RISK RATIO 3.0(L) 3.3 - 4.4 [facility] Blood 10/03/2023 8:18 AM EST 10/03/2023 8:25 AM EST us Stephan Day DO LAB BLOOD BKR ORDERABLES Final R esult [facility] [address] [place] [address] * BI MAMMOGRAM SCREENING WITH TOMOSYNTHESIS WITH CAD (BILATERAL) (05/17/2022 10:59 AM EDT) Anatomical Region Laterality Modality Breast Left, Breast Right, Breast Bilateral Bila teral Mammography 05/17/2022 5:22 PM EDT Impressions 05/17/2022 5:26 PM EDT No mammographic signs of malignancy. Annual screening is recommended. BI-RADS CATEGORY: 2 - Benign finding. DENSITY: The breast tissue is almost entirely fat. Narrative 05/17/2022 5:26 PM EDT Bilateral mammography is performed in conjunction with computed aided detection. 3-D tomography along with 2-D C view imaging was also performed. Comparison made to previous dated as far back as 10/19/2000 and as recent as 02/23/2021. No suspicious masses, areas of architectural distortion or suspicious microcalcifications. Small focal asymmetry in the mid one third of the outer right breast is stable for years. Procedure Note Rahul Jama MD - 05/17/2022 Bilateral mammography is performed in conjunction with computed aideddetection. 3-D tomography along with 2-D C view imaging was alsoperformed. Comparison made to previous dated as far back as 10/19/2000 andas recent as 02/23/2021. No suspicious masses, areas of architectural distortion or suspiciousmicrocalcifications. Small focal asymmetry in the mid one third of theouter right breast is stable for years. IMPRESSION: No mammographic signs of malignancy. Annual screening is recommended. BI-RADS CATEGORY: 2 - Benign finding. DENSITY: The breast tissue is almost entirely fat. us Provider Not In System PhD IMG MG EXAMS Final Result from Last 3 Months or Most Recently Relevant to Health Maintenance Insurance MEDICARE PART A & B [place] BLUE REPLACEMENT [facility] MEDICARE PART A & [place] BLUE [facility] MEDICARE PART A & B [facility] MEDIC[facility] PPO BLUE REPLACEMENT [facility] MEDICARE PPO BLUE REPLAC[place] BL[place] REPLACEMENT [facility] MEDICARE PART A & B [facility] MEDICARE PPO BLUE REPLACEMENT MEDICARE PART A & B [facility] MEDICARE PPO BLUE REPLACEMENT [place]ICARE PART A & [place] BL[place] REPLACEMENT [facility] MEDICARE PART A & [place] [facility] [facility] Advance Directives For more information, please contact: [phone] (9AM - 5PM [facility], Monday-Monday) * Full Code (Latest Code Status on File) Date Activated Date Inactivated Comments 11/23/2020 9:49 AM Question Answer Comments Code Status Confirmed With: Patient * Full Code (Presumed) Date Activated Date Inactivated Comments 11/13/2017 6:57 AM 11/13/2017 1:54 PM Care Teams Pipe Fitter Apprentice Relationship Specialty Start Date End Date Stephan Day DO PCP - General Internal Medicine 03/22/21 Additional Source Comments The information contained in this document represents components of the legal health record. It is not the complete legal health record.[facility]
[2025-08-15 18:45] LABS: Appearance Urine Clear; Glucose Urine UA Negative (Negative); PH 6.0 (5.0-9.0); Specific Gravity - Urine 1.010 (1.005-1.025); UMIC TRIGGER UACC YES
== END 2025-08-15 14:48 | disposition home or self-care (01) ==
LOC: HO.MANLDS 14:47
PROVIDERS: Visit Provider Internal Medicine
DX: N12 Tubulo-interstitial nephritis, not specified as acute or chronic (principal); N02.9 Recurrent and persistent hematuria with unspecified morphologic changes
CPT/HCPCS: 81001; 88112